=== PATIENT | male | born 1945 | race Caucasian/White ===

== ENCOUNTER 2016-12-16 21:40 | Emergency (ER) | payer MEDICARE, OTHER ==
[2016-12-16 22:04] VITALS: BP 136/61
--- NOTE | 2016-12-16 22:29 | EDM.PDOC ---
ED HPI GENERAL MEDICAL PROBLEM - General Chief Complaint: Lower Extremity Injury/Pain Stated Complaint: Right ankle pain Time Seen by Provider: 12/16/16 22:10 Source of Information: Reports: Patient, RN Notes Reviewed History Limitations: Reports: No Limitations - History of Present Illness INITIAL COMMENTS - FREE TEXT/NARRATIVE: 71 year old male presents to the ED with pain to the right ankle. Pain is located to the medial malleolous and is worse with dorsiflexion of the foot. He rolled his ankle yesterday. No numbness or tingling. He is able to bear weight but with pain. 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 Pain Score (Numeric/FACES): 2 - Related Data Allergies Allergy/AdvReac Type Severity Reaction Status Date / Time amlodipine AdvReac Muscle Verified 12/16/16 22:04 Aches lisinopril AdvReac Muscle Verified 12/16/16 22:04 Aches olmesartan [From Benicar] AdvReac Muscle Verified 12/16/16 22:04 Aches Zkigfrj-[id number]-Dkh Reductase AdvReac Muscle Verified 12/16/16 22:04 Inhibitor Aches Home Meds: Home Meds Cholecalciferol (Vitamin D3) [Vitamin D3] 5,000 unit PO DAILY 04/20/16 [History] Hydrochlorothiazide 25 mg PO DAILY 04/20/16 [History] Latanoprost [Xalatan 0.005% Ophth Soln] 1 drop EYERT BEDTIME 04/20/16 [History] Levothyroxine 175 mcg PO DAILY 04/20/16 [History] Losartan Potassium [Cozaar] 100 mg PO DAILY #30 tablet 05/08/16 [Rx] Iron 18 mg PO DAILY 12/16/16 [History] Past Medical History HEENT History: Reports: Impaired Vision Other HEENT History: wears glasses, impacted cerumen Cardiovascular History: Reports: High Cholesterol, Hypertension Respiratory History: Reports: Sleep Apnea, Other (See Below) Other Respiratory History: cough, wears CPAP Gastrointestinal History: Reports: Other (See Below) Other Gastrointestinal History: meckel's diverticulum Musculoskeletal History: Reports: Gout Endocrine/Metabolic History: Reports: Hypothyroidism, Obesity/BMI 30+ Hematologic History: Reports: Other (See Below) Other Hematologic History: thrombocytopenia Dermatologic History: Reports: Other (See Below) Other Dermatologic History: skin lesion to face - Infectious Disease History Infectious Disease History: Reports: Chicken Pox, Measles - Past Surgical History GI Surgical History: Reports: Colonoscopy, ERCP, Other (See Below) Other GI Surgeries/Procedures: 2013, laparoscopic abdominal surgery 2015 Musculoskeletal Surgical History: Reports: Other (See Below) Other Musculoskeletal Surgeries/Procedures:: right hip replacement 02015 Social & Family History - Family History Family Medical History: Noncontributory - Tobacco Use Smoking Status *Q: Never Smoker Second Hand Smoke Exposure: No - Caffeine Use Caffeine Use: Reports: Coffee - Alcohol Use Days Per Week of Alcohol Use: 1 (1 per month) Number of Drinks Per Day: 0 Total Drinks Per Week: 0 - Recreational Drug Use Recreational Drug Use: No Review of Systems - Review of Systems Review Of Systems: See Below Musculoskeletal: Reports: Joint Pain Skin: Reports: No Symptoms Neurological: Reports: No Symptoms. Denies: Numbness, Tingling, Weakness ED EXAM, GENERAL - Physical Exam Exam: See Below Exam Limited By: No Limitations General Appearance: Alert, WD/WN, No Apparent Distress Extremities: Other (tenderness over medial malleolous. Swelling noted to ankle. No bruising. neurovascular intact) Neurological: Alert, Oriented, Normal Cognition, No Motor/Sensory Deficits Course - Vital Signs Last Recorded V/S: Last Vital Signs Temp 98.4 F 12/16/16 22:00 Pulse 81 12/16/16 22:00 Resp 18 12/16/16 22:00 BP 136/61 12/16/16 22:00 Pulse Ox 97 12/16/16 22:00 - Orders/Labs/Meds Orders: Active Orders 24 hr Category Date Time Status Ankle Min 3V Rt [CR] Stat Exams 12/16/16 22:13 Ordered - Re-Assessments/Exams Free Text/Narrative Re-Assessment/Exam: Right ankle x-ray is negative for fracture. Will place in ankle brace and discharge home. Instructed to follow-up with Dr. Mart in 7-10 days if not improved. Departure - Departure Time of Disposition: 22:58 Disposition: Home, Self-Care 01 Condition: Good Clinical Impression: Ankle sprain Qualifiers: Encounter type: initial encounter Involved ligament of ankle: unspecified ligament Laterality: right Qualified Code(s): S93.401A - Sprain of unspecified ligament of right ankle, initial encounter - Discharge Information Forms: ED Department Discharge Additional Instructions: Rest, ice and elevate Tylenol or naproxyn as needed for pain Follow-up with Dr. Mart in 7-10 days if not improved Wear ankle brace as tolerated Weight bearing as tolerated - My Orders Last 24 Hours: My Active Orders 12/16/16 22:13 Ankle Min 3V Rt [CR] Stat - Assessment/Plan Last 24 Hours: My Active Orders 12/16/16 22:13 Ankle Min 3V Rt [CR] Stat
--- NOTE | 2016-12-17 14:37 | CR ---
Right ankle: Four views of the right ankle were obtained. Comparison: No previous ankle study. Minimal plantar spur is seen. Calcifications are seen off the medial and lateral ankle compatible with old injury. Mild vascular calcification is present. No acute fracture or dislocation is seen. Impression: 1. Incidental findings as noted above. Nothing acute is identified. Diagnostic code #2
== END 2016-12-16 23:16 | disposition home or self-care (01) ==
LOC: JD.ED 21:40
DX: S93.401A Sprain of unspecified ligament of right ankle, initial encounter (principal); E78.00 Pure hypercholesterolemia, unspecified; I10 Essential (primary) hypertension; E03.9 Hypothyroidism, unspecified; E66.9 Obesity, unspecified; Z88.8 Allergy status to other drugs, medicaments and biological substances; Z79.899 Other long term (current) drug therapy; Z68.32 Body mass index [BMI] 32.0-32.9, adult; Z96.641 Presence of right artificial hip joint; X58.XXXA Exposure to other specified factors, initial encounter
CPT/HCPCS: 73610-26-RT; 73610-RT; 99282; 99283

== ENCOUNTER 2017-06-24 16:28 | Emergency (ER) | payer MEDICARE, OTHER ==
[2017-06-24 16:41] VITALS: BP 180/68
[2017-06-24] MEDS ORDERED: Sodium Chloride 0.9% 10 ML Syringe FLUSH PRN (16:49)
--- NOTE | 2017-06-24 17:23 | EDM.PDOC ---
ED HPI GENERAL MEDICAL PROBLEM - General Chief Complaint: Fever Stated Complaint: FEVER, COLD/FLU LIKE SYMPTOMS Time Seen by Provider: 06/24/17 16:40 Source of Information: Reports: Patient, RN Notes Reviewed - History of Present Illness INITIAL COMMENTS - FREE TEXT/NARRATIVE: 72-year-old male that started with cough congestion, fever chills last evening. That continues today. His frequent Cough is occasionally productive of mostly noncolored phlegm. He continues to have a lot of nasal and sinus congestion today. Feels weak, tired and achy. [place] headache nausea or vomiting. He does have mild scratchy sore throat. He did get a flu shot this past fall. He has had pneumonia in the past. Headache Pain Score (Numeric/FACES): 2 - Related Data Allergies Allergy/AdvReac Type Severity Reaction Status Date / Time amlodipine AdvReac Muscle Verified 06/24/17 16:41 Aches lisinopril AdvReac Muscle Verified 06/24/17 16:41 Aches olmesartan [From Benicar] AdvReac Muscle Verified 06/24/17 16:41 Aches Nbzhhza-Gzj-Swb Reductase AdvReac Muscle Verified 06/24/17 16:41 Inhibitor Aches Home Meds: Home Meds Allopurinol [Zyloprim] 300 mg PO DAILY 06/24/17 [History] Ascorbate Calcium [Vitamin C] 500 mg PO DAILY 06/24/17 [History] Cholecalciferol (Vitamin D3) [Vitamin D] 5,000 unit PO DAILY 06/24/17 [History] Hydrochlorothiazide 12.5 mg PO DAILY 06/24/17 [History] Latanoprost [Latanoprost] 1 drop EYEBOTH DAILY 06/24/17 [History] Levofloxacin [Levaquin] 500 mg PO Q24H #7 tablet 06/24/17 [Rx] Levothyroxine 175 mcg PO ACBRK 06/24/17 [History] Losartan Potassium 50 mg PO DAILY 06/24/17 [History] Past Medical History HEENT History: Reports: Impaired Vision Other HEENT History: wears glasses, impacted cerumen Cardiovascular History: Reports: High Cholesterol, Hypertension Respiratory History: Reports: Sleep Apnea, Other (See Below) Other Respiratory History: cough, wears CPAP Gastrointestinal History: Reports: Other (See Below) Other Gastrointestinal History: meckel's diverticulum Musculoskeletal History: Reports: Gout Endocrine/Metabolic History: Reports: Hypothyroidism, Obesity/BMI 30+ Hematologic History: Reports: Other (See Below) Other Hematologic History: thrombocytopenia Dermatologic History: Reports: Other (See Below) Other Dermatologic History: skin lesion to face - Infectious Disease History Infectious Disease History: Reports: Chicken Pox - Past Surgical History GI Surgical History: Reports: Colonoscopy, ERCP, Other (See Below) Other GI Surgeries/Procedures: 2012, laparoscopic abdominal surgery 2015 Musculoskeletal Surgical History: Reports: Other (See Below) Other Musculoskeletal Surgeries/Procedures:: right hip replacement 02015 Social & Family History - Family History Family Medical History: Noncontributory - Tobacco Use Smoking Status *Q: Never Smoker Second Hand Smoke Exposure: No - Caffeine Use Caffeine Use: Reports: Coffee - Alcohol Use Days Per Week of Alcohol Use: 1 (1 per month) Number of Drinks Per Day: 0 Total Drinks Per Week: 0 - Recreational Drug Use Recreational Drug Use: No ED ROS GENERAL - Review of Systems Review Of Systems: See Below Constitutional: Reports: Fever, Chills HEENT: Reports: Rhinitis, Sinus Problem (Fairly sick difficult nasal and sinus congestion), Throat Pain (Mild sore throat) Respiratory: Reports: Shortness of Breath (With exertion), Wheezing Cardiovascular: Denies: Chest Pain Endocrine: Reports: Fatigue GI/Abdominal: Denies: Abdominal Pain, Diarrhea, Nausea, Vomiting Musculoskeletal: Reports: Other Skin: Reports: No Symptoms (Generalized achiness) Neurological: Reports: Dizziness, Weakness (Generalized). Denies: Headache ( Mild), Numbness, Tingling, Trouble Speaking ED EXAM, GENERAL - Physical Exam Exam: See Below General Appearance: Alert, Mild Distress Eye Exam: Bilateral Eye: PERRL Nose: Nasal Drainage, Clear Rhinorrhea Throat/Mouth: Normal Inspection, Normal Oropharynx Head: Atraumatic. No: Facial Swelling Neck: Supple, Full Range of Motion. No: Lymphadenopathy (L), Lymphadenopathy (R ) Respiratory/Chest: No Respiratory Distress, Wheezing. No: Rhonchi Cardiovascular: Tachycardia GI/Abdominal: Soft Back Exam: No: CVA Tenderness (L), CVA Tenderness (R) Extremities: Normal Inspection, Normal Range of Motion. No: Pedal Edema, Leg Pain Neurological: Alert, Oriented, No Motor/Sensory Deficits Skin Exam: Warm, Dry, Normal Color, No Rash Course - Vital Signs Last Recorded V/S: Last Vital Signs Temp 104.2 F H 06/24/17 17:41 Pulse 126 H 06/24/17 16:37 Resp 20 06/24/17 16:37 BP 180/68 H 06/24/17 16:37 Pulse Ox 95 06/24/17 17:48 - Orders/Labs/Meds Orders: Active Orders 24 hr Category Date Time Status Peripheral IV Care [RC] . DIRECTED Care 06/24/17 16:49 Active RT Aerosol Therapy [RC] ASDIRECTED Care 06/24/17 17:37 Active CXR [Chest 2V] [CR] Stat Exams 06/24/17 16:48 Taken CULTURE BLOOD [BC] Stat Lab 06/24/17 17:10 Received Sodium Chloride 0.9% [Saline Flush] Med 06/24/17 16:49 Active 10 ml FLUSH ASDIRECTED PRN Peripheral IV Insertion Adult [OM.PC] Stat Oth 06/24/17 16:49 Ordered Medication Orders Sodium Chloride (Saline Flush) 10 ml FLUSH ASDIRECTED PRN PRN Reason: Keep Vein Open Last Admin: 06/24/17 17:17 Dose: 10 ml Labs: Laboratory Tests 06/24/17 06/24/17 06/24/17 Range/Units 17:10 17:10 17:10 WBC 11.17 H (4.23-9.07) K/mm3 RBC 4.52 L (4.63-6.08) M/mm3 Hgb 13.3 L (13.7-17.5) gm/L Hct 40.7 (40.1-51.0) % MCV 90.0 (79.0-92.2) fl MCH 29.4 (25.7-32.2) pg MCHC 32.7 (32.2-35.5) g/dl RDW Std Deviation 49.4 H (35.1-43.9) fL Plt Count 156 L (163-337) K/mm3 MPV 8.8 L (9.4-12.3) fl Neut % (Auto) 76.4 H (34.0-67.9) % Lymph % (Auto) 12.4 L (21.8-53.1) % [place] % (Auto) 9.9 (5.3-12.2) % Eos % (Auto) 0.6 L (0.8-7.0) Baso % (Auto) 0.4 (0.1-1.2) % Neut # (Auto) 8.53 H (1.78-5.38) K/mm3 Lymph # (Auto) 1.38 (1.32-3.57) K/mm3 [place] # (Auto) 1.11 H (0.30-0.82) K/mm3 Eos # (Auto) 0.07 (0.04-0.54) K/mm3 Baso # (Auto) 0.05 (0.01-0.08) K/mm3 Sodium 136 (136-145) mEq/L Potassium 4.1 (3.5-5.1) mEq/L Chloride 101 (98-107) mEq/L Carbon Dioxide 24 (21-32) mEq/L Anion Gap 15.1 H (5-15) BUN 21 H (7-18) mg/dL Creatinine 1.4 H (0.7-1.3) mg/dL Est Cr Clr Drug Dosing 49.10 mL/min Estimated GFR (MDRD) 50 (>60) mL/min BUN/Creatinine Ratio 15.0 (14-18) Glucose 123 H (80-115) mg/dL Lactic Acid (0.4-2.0) mmol/L Calcium 8.6 (8.5-10.1) mg/dL Total Bilirubin 0.6 (0.2-1.0) mg/dL AST 19 (15-37) U/L ALT 26 (16-63) U/L Alkaline Phosphatase 111 (46-116) U/L C-Reactive Protein 11.8 H* (<1.0) mg/dL Total Protein 7.4 (6.4-8.2) g/dl Albumin 3.4 (3.4-5.0) g/dl Globulin 4.0 gm/dL Albumin/Globulin Ratio 0.9 L (1-2) 06/24/17 Range/Units 17:10 WBC (4.23-9.07) K/mm3 RBC (4.63-6.08) M/mm3 Hgb (13.7-17.5) gm/L Hct (40.1-51.0) % MCV (79.0-92.2) fl MCH (25.7-32.2) pg MCHC (32.2-35.5) g/dl RDW Std Deviation (35.1-43.9) fL Plt Count (163-337) K/mm3 MPV (9.4-12.3) fl Neut % (Auto) (34.0-67.9) % Lymph % (Auto) (21.8-53.1) % [place] % (Auto) (5.3-12.2) % Eos % (Auto) (0.8-7.0) Baso % (Auto) (0.1-1.2) % Neut # (Auto) (1.78-5.38) K/mm3 Lymph # (Auto) (1.32-3.57) K/mm3 [place] # (Auto) (0.30-0.82) K/mm3 Eos # (Auto) (0.04-0.54) K/mm3 Baso # (Auto) (0.01-0.08) K/mm3 Sodium (136-145) mEq/L Potassium (3.5-5.1) mEq/L Chloride (98-107) mEq/L Carbon Dioxide (21-32) mEq/L Anion Gap (5-15) BUN (7-18) mg/dL Creatinine (0.7-1.3) mg/dL Est Cr Clr Drug Dosing mL/min Estimated GFR (MDRD) (>60) mL/min BUN/Creatinine Ratio (14-18) Glucose (80-115) mg/dL Lactic Acid 1.5 (0.4-2.0) mmol/L Calcium (8.5-10.1) mg/dL Total Bilirubin (0.2-1.0) mg/dL AST (15-37) U/L ALT (16-63) U/L Alkaline Phosphatase (46-116) U/L C-Reactive Protein (<1.0) mg/dL Total Protein (6.4-8.2) g/dl Albumin (3.4-5.0) g/dl Globulin gm/dL Albumin/Globulin Ratio (1-2) Meds: Medications Generic Name Dose Route Start Last Admin Trade Name Freq PRN Reason Stop Dose Admin Sodium Chloride 10 ml 06/24/17 16:49 06/24/17 17:17 Saline Flush FLUSH 10 ml ASDIRECTED PRN Administration Keep Vein Open Discontinued Medications Generic Name Dose Route Start Last Admin Trade Name Rivas PRN Reason Stop Dose Admin Acetaminophen 975 mg 06/24/17 17:35 06/24/17 17:41 Tylenol PO 06/24/17 17:36 975 mg NOW ONE Administration Albuterol/Ipratropium 3 ml 06/24/17 17:37 06/24/17 17:47 Duoneb 3.0-0.5 Mg/3 Ml NEB 06/24/17 17:38 3 ml ONETIME ONE Administration Levofloxacin 500 mg 06/24/17 18:38 06/24/17 18:43 Levaquin PO 06/24/17 18:39 500 mg ONETIME ONE Administration - Re-Assessments/Exams Free Text/Narrative Re-Assessment/Exam: 06/24/17 18:39 White blood count is come back mildly elevated C-reactive protein is around 11. He does have some slightly increased parahilar haziness right posterior lower lobe, possible early infiltrate of pneumonia but certainly not definite. His symptoms are compatible with that of an influenza type illness but his influenza screen was negative. The C-reactive protein that high and symptoms of being moderately sick I do feel I need to have him start an antibiotic. We are going to give 500 mg Levaquin oral now and continue that for the next week was wheezing some initially. We have done a DuoNeb and also have given Tylenol and he does feel somewhat better after all of that. Discharge instructions as documented. Departure - Departure Time of Disposition: 18:41 Disposition: Home, Self-Care 01 Clinical Impression: Viral upper respiratory infection Pneumonia Qualifiers: Pneumonia type: due to unspecified organism Laterality: right Lung location: lower lobe of lung Qualified Code(s): J18.1 - Lobar pneumonia, unspecified organism - Discharge Information Prescriptions: Levofloxacin [Levaquin] 500 mg PO Q24H #7 tablet Referrals: Jarrod Retana MD [Primary Care Provider] - Forms: ED Department Discharge Additional Instructions: Rest, drink plenty of water to maintain hydration, continue Tylenol around 3 times daily for fever and generalized discomfort, vaporizer or steam as needed, albuterol inhaler 2 puffs every 4-6 hours as needed for severe cough or wheezing , you should gradually start feeling better over the next 2-3 days, follow-up clinic if not better within 3-4 days as expected, return to ED as needed. - My Orders Last 24 Hours: My Active Orders 06/24/17 16:48 CXR [Chest 2V] [CR] Stat 06/24/17 16:49 Peripheral IV Care [RC] . DIRECTED Sodium Chloride 0.9% [Saline Flush] 10 ml FLUSH ASDIRECTED PRN Peripheral IV Insertion Adult [OM.PC] Stat 06/24/17 17:10 CULTURE BLOOD [BC] Stat 06/24/17 17:37 RT Aerosol Therapy [RC] ASDIRECTED - Assessment/Plan Last 24 Hours: My Active Orders 06/24/17 16:48 CXR [Chest 2V] [CR] Stat 06/24/17 16:49 Peripheral IV Care [RC] . DIRECTED Sodium Chloride 0.9% [Saline Flush] 10 ml FLUSH ASDIRECTED PRN Peripheral IV Insertion Adult [OM.PC] Stat 06/24/17 17:10 CULTURE BLOOD [BC] Stat 06/24/17 17:37 RT Aerosol Therapy [RC] ASDIRECTED
[2017-06-24] MEDS ORDERED: Acetaminophen 325 MG Tab PO ONE (17:35)
[2017-06-24] MEDS ORDERED: Albuterol/Ipratropium 3.0-0.5 MG/3 ML Neb Soln NEB ONE (17:37)
[2017-06-24] MEDS ORDERED: Levofloxacin 250 MG Tab PO ONE (18:38)
--- NOTE | 2017-06-25 07:59 | CR ---
Chest: Two views of the chest were obtained. Comparison: Prior chest x-ray of 04/27/16. Heart size and mediastinum are normal. Minimal left basilar atelectasis and right middle lobe atelectasis is noted. Lungs otherwise are clear. Degenerative endplate spurring is noted within the spine. Impression: 1. Mild areas of atelectasis. 2. Nothing acute is otherwise seen on two-view chest x-ray. Diagnostic code #2
== END 2017-06-24 19:00 | disposition home or self-care (01) ==
LOC: JD.ED 16:28
DX: J18.9 Pneumonia, unspecified organism (principal); J06.9 Acute upper respiratory infection, unspecified; E78.00 Pure hypercholesterolemia, unspecified; I10 Essential (primary) hypertension; Z88.8 Allergy status to other drugs, medicaments and biological substances; Z79.899 Other long term (current) drug therapy
CPT/HCPCS: 36415; 71020; 80053; 83605; 85025; 86140; 87040; 87804; 94640; 99284; A9270; J7050

== ENCOUNTER 2017-09-26 21:33 | Emergency (ER) | payer MEDICARE, OTHER ==
[2017-09-26 21:41] VITALS: BP 119/95
[2017-09-26] MEDS ORDERED: Sodium Chloride 0.9% 500 ML IV ONE (21:53)
[2017-09-26] MEDS ORDERED: Sodium Chloride 0.9% 10 ML Syringe FLUSH PRN (21:54)
[2017-09-26] MEDS ORDERED: Diltiazem 25 MG/5 ML SDV IVPUSH ONE (21:54)
--- NOTE | 2017-09-26 22:58 | EDM.PDOC ---
ED HPI GENERAL MEDICAL PROBLEM - General Chief Complaint: Cardiovascular Problem Stated Complaint: HEART IS RACING Time Seen by Provider: 09/26/17 21:44 Source of Information: Reports: Patient, RN Notes Reviewed - History of Present Illness INITIAL COMMENTS - FREE TEXT/NARRATIVE: 72-year-old male comes in with heart palpitations. He had onset of these symptoms about an hour or 2 ago. The tooth just discharged from the hospital 3 or 4 days ago. Details of that admission are not totally clear at this time and I believe he had been having some chest discomfort and then also he and his states he did have some episodes of "rapid heart rate" while here in the hospital. He did go home on metoprolol 25 mg twice a day. He has taken both of those medications today. He currently has no chest discomfort, does not feel short of breath and has had no unusual weakness dizziness nausea or vomiting. - Related Data Allergies Allergy/AdvReac Type Severity Reaction Status Date / Time amlodipine AdvReac Muscle Verified 09/26/17 21:36 Aches lisinopril AdvReac Muscle Verified 09/26/17 21:36 Aches olmesartan [From Benicar] AdvReac Muscle Verified 09/26/17 21:36 Aches [id number]-[id number] Reductase AdvReac Muscle Verified 09/26/17 21:36 Inhibitor Aches Home Meds: Home Meds Allopurinol [Zyloprim] 300 mg PO DAILY 06/24/17 [History] Ascorbate Calcium [Vitamin C] 500 mg PO DAILY 06/24/17 [History] Cholecalciferol (Vitamin D3) [Vitamin D] 5,000 unit PO DAILY 06/24/17 [History] Hydrochlorothiazide 12.5 mg PO DAILY 06/24/17 [History] Latanoprost 1 drop EYERT DAILY 06/24/17 [History] Levothyroxine 175 mcg PO ACBRK 06/24/17 [History] Losartan Potassium 50 mg PO DAILY 06/24/17 [History] Ferrous Sulfate [Slow Fe] 140 mg PO DAILY 09/19/17 [History] Metoprolol Tartrate [Lopressor] 25 mg PO Q12HR #40 tablet 09/23/17 [Rx] Saccharomyces Boulardii [Florastor] 500 mg PO DAILY #20 cap 09/23/17 [Rx] Past Medical History HEENT History: Reports: Impaired Vision Other HEENT History: wears glasses, impacted cerumen Cardiovascular History: Reports: Arrhythmia, High Cholesterol, Hypertension, Other (See Below) Other Cardiovascular History: tachycardia Respiratory History: Reports: Sleep Apnea, Other (See Below) Other Respiratory History: cough, wears CPAP Gastrointestinal History: Reports: Other (See Below) Other Gastrointestinal History: meckel's diverticulum Musculoskeletal History: Reports: Gout Endocrine/Metabolic History: Reports: Hypothyroidism, Obesity/BMI 30+ Hematologic History: Reports: Other (See Below) Other Hematologic History: thrombocytopenia Dermatologic History: Reports: Other (See Below) Other Dermatologic History: skin lesion to face - Infectious Disease History Infectious Disease History: Reports: Chicken Pox - Past Surgical History GI Surgical History: Reports: Colonoscopy, ERCP, Other (See Below) Other GI Surgeries/Procedures: 2012, laparoscopic abdominal surgery 2015 Musculoskeletal Surgical History: Reports: Other (See Below) Other Musculoskeletal Surgeries/Procedures:: right hip replacement 2015 Social & Family History - Family History Family Medical History: Noncontributory - Tobacco Use Smoking Status *Q: Never Smoker Second Hand Smoke Exposure: No - Caffeine Use Caffeine Use: Reports: Coffee - Alcohol Use Days Per Week of Alcohol Use: 1 (1 per month) Number of Drinks Per Day: 0 Total Drinks Per Week: 0 - Recreational Drug Use Recreational Drug Use: No ED ROS GENERAL - Review of Systems Review Of Systems: See Below Constitutional: Denies: Fever, Chills, Diaphoresis HEENT: Reports: No Symptoms Respiratory: Denies: Shortness of Breath, Wheezing, Pleuritic Chest Pain Cardiovascular: Reports: Palpitations. Denies: Chest Pain, Lightheadedness, Syncope GI/Abdominal: Denies: Abdominal Pain, Nausea, Vomiting Musculoskeletal: Denies: Neck Pain, Shoulder Pain, Arm Pain, Back Pain Skin: Reports: No Symptoms Neurological: Reports: No Symptoms ED EXAM, GENERAL - Physical Exam Exam: See Below General Appearance: Alert, No Apparent Distress Eye Exam: Bilateral Eye: PERRL Nose: Normal Inspection Throat/Mouth: Normal Inspection, Normal Oropharynx Head: Atraumatic. No: Facial Swelling Neck: Supple, Full Range of Motion Respiratory/Chest: No Respiratory Distress, Lungs Clear, Normal Breath Sounds Cardiovascular: Tachycardia GI/Abdominal: Soft, Non-Tender Back Exam: No: CVA Tenderness (L), CVA Tenderness (R) Extremities: Normal Inspection, Normal Range of Motion. No: Pedal Edema, Leg Pain Skin Exam: Warm, Dry, Normal Color Course - Vital Signs Last Recorded V/S: Last Vital Signs Temp 96.1 F 09/26/17 21:36 Pulse 165 H 09/26/17 21:36 Resp 22 H 09/26/17 21:36 BP 119/95 H 09/26/17 21:36 Pulse Ox 97 09/26/17 21:36 - Orders/Labs/Meds Orders: Active Orders 24 hr Category Date Time Status EKG 12 Lead [EKG Documentation Completion] [RC] STAT Care 09/26/17 22:30 Active EKG Documentation Completion [RC] ASDIRECTED Care 09/26/17 22:24 Active EKG Documentation Completion [RC] ASDIRECTED Care 09/26/17 22:30 Active Peripheral IV Care [RC] . DIRECTED Care 09/26/17 21:54 Active Chest 1V Frontal [CR] Stat Exams 09/26/17 23:57 Taken Peripheral IV Insertion Adult [OM.PC] Stat Oth 09/26/17 21:53 Ordered EKG 12 Lead [EK] Stat Ther 09/26/17 22:24 Ordered EKG 12 Lead [EK] Stat Ther 09/26/17 22:30 Ordered Labs: Laboratory Tests 09/26/17 09/26/17 09/26/17 Range/Units 21:48 21:48 21:48 WBC 13.19 H (4.23-9.07) K/mm3 RBC 4.66 (4.63-6.08) M/mm3 Hgb 13.7 (13.7-17.5) gm/L Hct 42.1 (40.1-51.0) % MCV 90.3 (79.0-92.2) fl MCH 29.4 (25.7-32.2) pg MCHC 32.5 (32.2-35.5) g/dl RDW Std Deviation 47.3 H (35.1-43.9) fL Plt Count 349 H (163-337) K/mm3 MPV 8.8 L (9.4-12.3) fl Neut % (Auto) 61.4 (34.0-67.9) % Lymph % (Auto) 23.7 (21.8-53.1) % [place] % (Auto) 10.6 (5.3-12.2) % Eos % (Auto) 2.7 (0.8-7.0) Baso % (Auto) 0.4 (0.1-1.2) % Neut # (Auto) 8.10 H (1.78-5.38) K/mm3 Lymph # (Auto) 3.12 (1.32-3.57) K/mm3 [place] # (Auto) 1.40 H (0.30-0.82) K/mm3 Eos # (Auto) 0.36 (0.04-0.54) K/mm3 Baso # (Auto) 0.05 (0.01-0.08) K/mm3 Manual Slide Review Normal smear Sodium 135 L (136-145) mEq/L Potassium 3.7 (3.5-5.1) mEq/L Chloride 100 (98-107) mEq/L Carbon Dioxide 25 (21-32) mEq/L Anion Gap 13.7 (5-15) BUN 26 H (7-18) mg/dL Creatinine 1.6 H (0.7-1.3) mg/dL Est Cr Clr Drug Dosing 41.56 mL/min Estimated GFR (MDRD) 43 (>60) mL/min BUN/Creatinine Ratio 16.3 (14-18) Glucose 115 (80-115) mg/dL Calcium 9.2 (8.5-10.1) mg/dL Total Bilirubin 0.3 (0.2-1.0) mg/dL AST 41 H (15-37) U/L ALT 44 (16-63) U/L Alkaline Phosphatase 132 H (46-116) U/L Troponin I 0.024 (0.00-0.056) ng/mL C-Reactive Protein 16.6 H* (<1.0) mg/dL Total Protein 7.9 (6.4-8.2) g/dl Albumin 3.1 L (3.4-5.0) g/dl Globulin 4.8 gm/dL Albumin/Globulin Ratio 0.7 L (1-2) Meds: Medications Discontinued Medications Generic Name Dose Route Start Last Admin Trade Name Freq PRN Reason Stop Dose Admin Diltiazem HCl 20 mg 09/26/17 21:54 09/26/17 22:03 Diltiazem IVPUSH 09/26/17 21:55 20 mg ONETIME ONE Administration Sodium Chloride 500 mls @ 999 mls/hr 09/26/17 21:53 09/26/17 22:02 Normal Saline IV 09/26/17 22:23 999 mls/hr .BOLUS ONE Administration Sodium Chloride 10 ml 09/26/17 21:54 09/26/17 22:02 Saline Flush FLUSH 10 ml ASDIRECTED PRN Administration Keep Vein Open - Re-Assessments/Exams Free Text/Narrative Re-Assessment/Exam: 09/26/17 23:11 EKG showed what looked like atrial flutter with 2 to one response on arrival with slight variability and occasional 3-1 conduction. Therefore patient was given 20 mg diltiazem IV as initial medication. With that his rate slowed and then he did convert after about 20-30 minutes. He remains in sinus rhythm rate in the 80s to around 90 at this time. 09/27/17 00:17. Continues to run sinus rhythm mid to upper 80s to low 90s, continues to have no chest discomfort or other unusual symptoms. Labs are as documented. Chest x-ray looks good. He was to going to the clinic tomorrow morning for further labs and then follow-up appointment with Dr. Geronimo early next week. As we have done all of the labs other than C-reactive protein the labs from this evening should work. I will add a C-reactive protein at this time. I am also going to increase his metoprolol from 25 twice a day to 25 3 times a day. Departure - Departure Time of Disposition: 00:19 Disposition: Home, Self-Care 01 Clinical Impression: Supraventricular tachycardia Atrial flutter Qualifiers: Atrial flutter type: typical Qualified Code(s): I48.3 - Typical atrial flutter Instructions: Atrial Flutter Referrals: Jarrod Retana MD [Primary Care Provider] - Forms: ED Department Discharge Additional Instructions: Increase metoprolol to 25 mg 3 times daily for nail. Lab work checked here in the ED this evening will be available for Dr. Geronimo to review as well as information that will be documented on your chart for this evening. See Dr. Geronimo next Saturday as planned, return to ED as needed if symptoms recurring or worsening in any way. - My Orders Last 24 Hours: My Active Orders 09/26/17 21:53 Peripheral IV Insertion Adult [OM.PC] Stat 09/26/17 21:54 Peripheral IV Care [RC] . DIRECTED 09/26/17 22:24 EKG Documentation Completion [RC] ASDIRECTED EKG 12 Lead [EK] Stat 09/26/17 22:30 EKG 12 Lead [EKG Documentation Completion] [RC] STAT EKG Documentation Completion [RC] ASDIRECTED EKG 12 Lead [EK] Stat 09/26/17 23:57 Chest 1V Frontal [CR] Stat - Assessment/Plan Last 24 Hours: My Active Orders 09/26/17 21:53 Peripheral IV Insertion Adult [OM.PC] Stat 09/26/17 21:54 Peripheral IV Care [RC] . DIRECTED 09/26/17 22:24 EKG Documentation Completion [RC] ASDIRECTED EKG 12 Lead [EK] Stat 09/26/17 22:30 EKG 12 Lead [EKG Documentation Completion] [RC] STAT EKG Documentation Completion [RC] ASDIRECTED EKG 12 Lead [EK] Stat 09/26/17 23:57 Chest 1V Frontal [CR] Stat
--- NOTE | 2017-09-27 07:57 | CR ---
Chest: Portable view of the chest was obtained. Comparison: Prior chest x-ray 09/22/17. Increased density is noted within the left midlung. Left retrocardiac region is not well seen with silhouetting of the hemidiaphragm possibly due to additional parenchymal densities. Lungs otherwise are clear. Heart size at the upper limits of normal. Upper mediastinum is within normal limits. Degenerative spurring is noted within the spine. Impression: 1. Slight parenchymal density within the left mid and lower lung. If patient has no symptoms of infection this likely represents atelectasis. 2. Heart size at the upper limits of normal. 3. Nothing acute is otherwise seen. Diagnostic code #3
== END 2017-09-27 00:28 | disposition home or self-care (01) ==
LOC: JD.ED 21:33
DX: I47.1 Supraventricular tachycardia (principal); I48.3 Typical atrial flutter; I10 Essential (primary) hypertension; E03.9 Hypothyroidism, unspecified; E66.9 Obesity, unspecified; E78.00 Pure hypercholesterolemia, unspecified; Z88.8 Allergy status to other drugs, medicaments and biological substances; Z79.899 Other long term (current) drug therapy
CPT/HCPCS: 36415; 71045; 80053; 84484; 85025; 86140; 93005; 96361; 96374; 99285; J3490; J7040; J7050; 93010; 99284-25

== ENCOUNTER 2017-09-30 14:32 | Emergency (ER) | payer MEDICARE, OTHER ==
[2017-09-30] MEDS ORDERED: Sodium Chloride 0.9% 10 ML Syringe FLUSH PRN (14:52)
[2017-09-30] MEDS ORDERED: Diltiazem 25 MG/5 ML SDV IVPUSH ONE (14:57)
[2017-09-30] MEDS ORDERED: Sodium Chloride 0.9% 1,000 ML IV SCH (15:00)
[2017-09-30] MEDS ORDERED: Diltiazem 125 MG in Sodium Chloride 0.9% 100 ML IV SCH (16:00)
[2017-09-30] MEDS ORDERED: Metoprolol Tartrate 5 MG/5 ML SDV IVPUSH ONE (17:56)
--- NOTE | 2017-09-30 18:22 | EDM.PDOC ---
ED HPI GENERAL MEDICAL PROBLEM - General Chief Complaint: Cardiovascular Problem Stated Complaint: RACING HEART RATE Time Seen by Provider: 09/30/17 14:49 Source of Information: Reports: Patient History Limitations: Reports: No Limitations - History of Present Illness INITIAL COMMENTS - FREE TEXT/NARRATIVE: The patient presents with palpitations. He was admitted here in the for A- fib. He was admitted and he had a complete work up. He converted in the hospital. He converted in the hospital. He was discharged and came back 3 days ago and he was in it again. He was given a cardizem bolus and he converted. He is not sure when this last episode started. He has no fever, chills, cough, chest pain, shortness of breath, abdominal pain, nausea or vomiting. Onset: Unknown/Unsure Severity: Moderate Improves with: Reports: None Worsens with: Reports: None Associated Symptoms: Reports: No Other Symptoms Left Upper Chest Pain Score (Numeric/FACES): 2 - Related Data Allergies Allergy/AdvReac Type Severity Reaction Status Date / Time amlodipine AdvReac Muscle Verified 09/30/17 14:45 Aches lisinopril AdvReac Muscle Verified 09/30/17 14:45 Aches olmesartan [From Benicar] AdvReac Muscle Verified 09/30/17 14:45 Aches Ybnqkwu-Lpt-Kuq Reductase AdvReac Muscle Verified 09/30/17 14:45 Inhibitor Aches Home Meds: Home Meds Allopurinol [Zyloprim] 300 mg PO DAILY 06/24/17 [History] Ascorbate Calcium [Vitamin C] 500 mg PO DAILY 06/24/17 [History] Cholecalciferol (Vitamin D3) [Vitamin D] 5,000 unit PO DAILY 06/24/17 [History] Hydrochlorothiazide 12.5 mg PO DAILY 06/24/17 [History] Latanoprost 1 drop EYERT DAILY 06/24/17 [History] Levothyroxine 175 mcg PO ACBRK 06/24/17 [History] Losartan Potassium 50 mg PO DAILY 06/24/17 [History] Ferrous Sulfate [Slow Fe] 140 mg PO DAILY 09/19/17 [History] Metoprolol Tartrate [Lopressor] 25 mg PO TID 09/30/17 [History] Past Medical History HEENT History: Reports: Impaired Vision Other HEENT History: wears glasses, impacted cerumen Cardiovascular History: Reports: Arrhythmia, High Cholesterol, Hypertension, Other (See Below) Other Cardiovascular History: tachycardia Respiratory History: Reports: Sleep Apnea, Other (See Below) Other Respiratory History: cough, wears CPAP Gastrointestinal History: Reports: Other (See Below) Other Gastrointestinal History: meckel's diverticulum Musculoskeletal History: Reports: Gout Endocrine/Metabolic History: Reports: Hypothyroidism, Obesity/BMI 30+ Hematologic History: Reports: Other (See Below) Other Hematologic History: thrombocytopenia Dermatologic History: Reports: Other (See Below) Other Dermatologic History: skin lesion to face - Infectious Disease History Infectious Disease History: Reports: Chicken Pox - Past Surgical History GI Surgical History: Reports: Colonoscopy, ERCP, Other (See Below) Other GI Surgeries/Procedures: 2012, laparoscopic abdominal surgery 2015 Musculoskeletal Surgical History: Reports: Other (See Below) Other Musculoskeletal Surgeries/Procedures:: right hip replacement 2015 Social & Family History - Family History Family Medical History: Noncontributory - Tobacco Use Smoking Status *Q: Never Smoker Second Hand Smoke Exposure: No - Caffeine Use Caffeine Use: Reports: None - Alcohol Use Days Per Week of Alcohol Use: 1 (1 per month) Number of Drinks Per Day: 0 Total Drinks Per Week: 0 - Recreational Drug Use Recreational Drug Use: No ED ROS GENERAL - Review of Systems Review Of Systems: See Below Constitutional: Reports: No Symptoms HEENT: Reports: No Symptoms Respiratory: Reports: No Symptoms Cardiovascular: Reports: Palpitations Endocrine: Reports: No Symptoms GI/Abdominal: Reports: No Symptoms : Reports: No Symptoms Musculoskeletal: Reports: No Symptoms ED EXAM, GENERAL - Physical Exam Exam: See Below Exam Limited By: No Limitations General Appearance: Alert, No Apparent Distress Ears: Normal External Exam Nose: Normal Inspection Head: Atraumatic, Normocephalic Neck: Normal Inspection Respiratory/Chest: No Respiratory Distress, Lungs Clear, Normal Breath Sounds Cardiovascular: No Edema, No Murmur, Tachycardia GI/Abdominal: Soft, Non-Tender, No Organomegaly, No Mass Back Exam: Normal Inspection Extremities: Normal Inspection Neurological: Alert, Oriented, No Motor/Sensory Deficits EKG INTERPRETATION EKG Date: 09/30/17 Time: 18:27 Rhythm: A-Fib Rate (Beats/Min): 162 [place]: Normal QRS: Normal Course - Vital Signs Last Recorded V/S: Last Vital Signs Temp 98.5 F 09/30/17 14:41 Pulse 79 09/30/17 18:15 Resp 24 H 09/30/17 17:30 BP 118/74 09/30/17 18:15 Pulse Ox 95 09/30/17 17:30 - Orders/Labs/Meds Orders: Active Orders 24 hr Category Date Time Status Cardiac Monitoring [RC] . DIRECTED Care 09/30/17 14:52 Active EKG Documentation Completion [RC] STAT Care 09/30/17 14:54 Active Peripheral IV Care [RC] . DIRECTED Care 09/30/17 14:54 Active Diltiazem 125 mg Med 09/30/17 16:00 Active Sodium Chloride 0.9% [Normal Saline] 100 ml IV TITRATE Sodium Chloride 0.9% [Normal Saline] 1,000 ml Med 09/30/17 15:00 Active IV ASDIRECTED Sodium Chloride 0.9% [Saline Flush] Med 09/30/17 14:52 Active 10 ml FLUSH ASDIRECTED PRN Peripheral IV Insertion Adult [OM.PC] Stat Oth 09/30/17 14:52 Ordered Medication Orders Sodium Chloride (Normal Saline) 1,000 mls @ 125 mls/hr IV ASDIRECTED TIFFANIE Last Admin: 09/30/17 15:09 Dose: 125 mls/hr Diltiazem HCl 125 mg/ Sodium (Chloride) 125 mls @ 10 mls/hr IV TITRATE TIFFANIE; Protocol Last Titration: 09/30/17 18:12 Dose: 5 mg/hr, 5 mls/hr Admin: 09/30/17 16:10 Dose: 10 mg/hr, 10 mls/hr Sodium Chloride (Saline Flush) 10 ml FLUSH ASDIRECTED PRN PRN Reason: Keep Vein Open Last Admin: 09/30/17 15:15 Dose: 10 ml Labs: Laboratory Tests 09/30/17 09/30/17 Range/Units 16:05 16:05 WBC 10.03 H (4.23-9.07) K/mm3 RBC 4.15 L (4.63-6.08) M/mm3 Hgb 12.3 L (13.7-17.5) gm/L Hct 38.1 L (40.1-51.0) % MCV 91.8 (79.0-92.2) fl MCH 29.6 (25.7-32.2) pg MCHC 32.3 (32.2-35.5) g/dl RDW Std Deviation 47.4 H (35.1-43.9) fL Plt Count 319 (163-337) K/mm3 MPV 8.7 L (9.4-12.3) fl Neut % (Auto) 66.9 (34.0-67.9) % Lymph % (Auto) 18.5 L (21.8-53.1) % [place] % (Auto) 10.7 (5.3-12.2) % Eos % (Auto) 2.1 (0.8-7.0) Baso % (Auto) 0.8 (0.1-1.2) % Neut # (Auto) 6.71 H (1.78-5.38) K/mm3 Lymph # (Auto) 1.86 (1.32-3.57) K/mm3 [place] # (Auto) 1.07 H (0.30-0.82) K/mm3 Eos # (Auto) 0.21 (0.04-0.54) K/mm3 Baso # (Auto) 0.08 (0.01-0.08) K/mm3 Sodium 142 (136-145) mEq/L Potassium 4.0 (3.5-5.1) mEq/L Chloride 103 (98-107) mEq/L Carbon Dioxide 27 (21-32) mEq/L Anion Gap 16.0 H (5-15) BUN 18 (7-18) mg/dL Creatinine 1.2 (0.7-1.3) mg/dL Est Cr Clr Drug Dosing 57.28 mL/min Estimated GFR (MDRD) 60 (>60) mL/min BUN/Creatinine Ratio 15.0 (14-18) Glucose 118 H (80-115) mg/dL Calcium 8.9 (8.5-10.1) mg/dL Total Bilirubin 0.3 (0.2-1.0) mg/dL AST 19 (15-37) U/L ALT 22 (16-63) U/L Alkaline Phosphatase 103 (46-116) U/L Troponin I < 0.017 (0.00-0.056) ng/mL Total Protein 7.1 (6.4-8.2) g/dl Albumin 2.9 L (3.4-5.0) g/dl Globulin 4.2 gm/dL Albumin/Globulin Ratio 0.7 L (1-2) Meds: Medications Generic Name Dose Route Start Last Admin Trade Name Freq PRN Reason Stop Dose Admin Sodium Chloride 1,000 mls @ 125 mls/hr 09/30/17 15:00 09/30/17 15:09 Normal Saline IV 125 mls/hr ASDIRECTED TIFFANIE Administration Diltiazem HCl 125 mg/ Sodium 125 mls @ 10 mls/hr 09/30/17 16:00 09/30/17 18: 12 Chloride IV 5 mg/hr TITRATE TIFFANIE 5 mls/hr Titration Protocol 10 MG/HR Sodium Chloride 10 ml 09/30/17 14:52 09/30/17 15:15 Saline Flush FLUSH 10 ml ASDIRECTED PRN Administration Keep Vein Open Discontinued Medications Generic Name Dose Route Start Last Admin Trade Name Freq PRN Reason Stop Dose Admin Diltiazem HCl 20 mg 09/30/17 14:57 09/30/17 15:09 Diltiazem IVPUSH 09/30/17 14:58 20 mg ONETIME ONE Administration Metoprolol Tartrate 5 mg 09/30/17 17:56 09/30/17 18:01 Lopressor IVPUSH 09/30/17 17:57 5 mg ONETIME ONE Administration - Re-Assessments/Exams Free Text/Narrative Re-Assessment/Exam: 09/30/17 18:28 The patient is in A-fib with RVR of 162. I ordered an IV NS, labs, EKG, cardizem bolus of 20mg IV and a drip of 10mg IV. His EKG shows the A-fib at 165. There was no acute changes. His CBC and CMP look good. His troponin is negative. His TSH was checked a few days ago and that was normal. His rate is better around 110s. My nurse recommended metoprolol 5mg. We tried it and he quickly converted. 09/30/17 18:42 I will need to increase his metoprolol to 50mg 2 times per day. He is seeing Dr Geronimo tomorrow. He will need to talk to him about the metoprolol and blood thinners. His holter monitor did show 11 episodes of A-fib totaling 38 minutes. Departure - Departure Time of Disposition: 18:50 Disposition: Home, Self-Care 01 Condition: Good Clinical Impression: Atrial fibrillation Qualifiers: Atrial fibrillation type: paroxysmal Qualified Code(s): I48.0 - Paroxysmal atrial fibrillation Referrals: Jarrod Retana MD [Primary Care Provider] - 1 Day Forms: ED Department Discharge Additional Instructions: Take your medicine as prescribed except for the metoprolol take 2 pills or 50mg 2 times per day starting tomorrow. See Dr Geronimo tomorrow. He may have a different plan but hopefully this will keep your rate controlled. Discuss blood thinners for the atrial fibrillation tomorrow with Dr Geronimo. Please return if you are worse. - My Orders Last 24 Hours: My Active Orders 09/30/17 14:52 Cardiac Monitoring [RC] . DIRECTED Sodium Chloride 0.9% [Saline Flush] 10 ml FLUSH ASDIRECTED PRN Peripheral IV Insertion Adult [OM.PC] Stat 09/30/17 14:54 EKG Documentation Completion [RC] STAT Peripheral IV Care [RC] . DIRECTED 09/30/17 15:00 Sodium Chloride 0.9% [Normal Saline] 1,000 ml IV ASDIRECTED 09/30/17 16:00 Diltiazem 125 mg Sodium Chloride 0.9% [Normal Saline] 100 ml IV TITRATE - Assessment/Plan Last 24 Hours: My Active Orders 09/30/17 14:52 Cardiac Monitoring [RC] . DIRECTED Sodium Chloride 0.9% [Saline Flush] 10 ml FLUSH ASDIRECTED PRN Peripheral IV Insertion Adult [OM.PC] Stat 09/30/17 14:54 EKG Documentation Completion [RC] STAT Peripheral IV Care [RC] . DIRECTED 09/30/17 15:00 Sodium Chloride 0.9% [Normal Saline] 1,000 ml IV ASDIRECTED 09/30/17 16:00 Diltiazem 125 mg Sodium Chloride 0.9% [Normal Saline] 100 ml IV TITRATE
[2017-09-30 18:51] VITALS: BP 114/70
== END 2017-09-30 19:00 | disposition home or self-care (01) ==
LOC: JD.ED 14:32
DX: I48.0 Paroxysmal atrial fibrillation (principal); E78.00 Pure hypercholesterolemia, unspecified; I10 Essential (primary) hypertension; G47.30 Sleep apnea, unspecified; Z99.89 Dependence on other enabling machines and devices; E03.9 Hypothyroidism, unspecified; E66.9 Obesity, unspecified; Z79.899 Other long term (current) drug therapy; Z88.8 Allergy status to other drugs, medicaments and biological substances; Z68.33 Body mass index [BMI] 33.0-33.9, adult
CPT/HCPCS: 36415; 80053; 84484; 85025; 93005; 96361; 96365; 96366; 96375; 96376; 99285; J3490; J7030; J7040; J7050; 93010; 99284-25

== ENCOUNTER 2017-10-07 19:39 | Emergency (ER) | payer MEDICARE, OTHER ==
[2017-10-07] MEDS ORDERED: Sodium Chloride 0.9% 1,000 ML IV ONE (19:54)
[2017-10-07] MEDS ORDERED: Sodium Chloride 0.9% 10 ML Syringe FLUSH PRN (19:54)
[2017-10-07] MEDS ORDERED: Metoprolol Tartrate 5 MG/5 ML SDV IVPUSH ONE (20:15)
--- NOTE | 2017-10-07 20:29 | EDM.PDOC ---
ED HPI GENERAL MEDICAL PROBLEM - General Chief Complaint: Cardiovascular Problem Stated Complaint: RACING HEART Time Seen by Provider: 10/07/17 19:53 Source of Information: Reports: Patient History Limitations: Reports: No Limitations - History of Present Illness INITIAL COMMENTS - FREE TEXT/NARRATIVE: The patient is a 72-year-old male who has a history of atrial fibrillation and multiple recent visits for the same who presents with fast heart rate. He states that he checked his blood pressure tonight and noticed that his heart rate was 160. He felt fine but came to the emergency department for fast heart rate. States that he felt a little tired out today but otherwise felt normal. No chest pain. No shortness of breath. No dizziness or lightheadedness. Denies fever or recent illness. No cough, abdominal pain, vomiting, diarrhea, or urinary symptoms. He's had multiple visits to the emergency department recently for atrial fibrillation with RVR. During his last visit, he converted with diltiazem followed by metoprolol. He's been taking metoprolol as an outpatient. He recently had his dose lowered to 25 mg XL twice a day. He's been on that dose for about a week. - Related Data Allergies Allergy/AdvReac Type Severity Reaction Status Date / Time amlodipine AdvReac Muscle Verified 09/30/17 14:45 Aches lisinopril AdvReac Muscle Verified 09/30/17 14:45 Aches olmesartan [From Benicar] AdvReac Muscle Verified 09/30/17 14:45 Aches Egnclpn-Tcv-Fhy Reductase AdvReac Muscle Verified 09/30/17 14:45 Inhibitor Aches Home Meds: Home Meds Allopurinol [Zyloprim] 300 mg PO DAILY 06/24/17 [History] Ascorbate Calcium [Vitamin C] 500 mg PO DAILY 06/24/17 [History] Cholecalciferol (Vitamin D3) [Vitamin D] 5,000 unit PO DAILY 06/24/17 [History] Hydrochlorothiazide 12.5 mg PO DAILY 06/24/17 [History] Latanoprost 1 drop EYERT DAILY 06/24/17 [History] Levothyroxine 175 mcg PO ACBRK 06/24/17 [History] Losartan Potassium 50 mg PO DAILY 06/24/17 [History] Ferrous Sulfate [Slow Fe] 140 mg PO DAILY 09/19/17 [History] Metoprolol Succinate [Toprol XL] 25 mg PO BID 10/07/17 [History] Past Medical History HEENT History: Reports: Impaired Vision Other HEENT History: wears glasses, impacted cerumen Cardiovascular History: Reports: Arrhythmia, High Cholesterol, Hypertension, Other (See Below) Other Cardiovascular History: tachycardia Respiratory History: Reports: Sleep Apnea, Other (See Below) Other Respiratory History: cough, wears CPAP Gastrointestinal History: Reports: Other (See Below) Other Gastrointestinal History: meckel's diverticulum Musculoskeletal History: Reports: Gout Endocrine/Metabolic History: Reports: Hypothyroidism, Obesity/BMI 30+ Hematologic History: Reports: Other (See Below) Other Hematologic History: thrombocytopenia Dermatologic History: Reports: Other (See Below) Other Dermatologic History: skin lesion to face - Infectious Disease History Infectious Disease History: Reports: Chicken Pox - Past Surgical History GI Surgical History: Reports: Colonoscopy, ERCP, Other (See Below) Other GI Surgeries/Procedures: 2012, laparoscopic abdominal surgery 2015 Musculoskeletal Surgical History: Reports: Other (See Below) Other Musculoskeletal Surgeries/Procedures:: right hip replacement 2015 Social & Family History - Family History Family Medical History: Noncontributory - Tobacco Use Smoking Status *Q: Never Smoker Second Hand Smoke Exposure: No - Caffeine Use Caffeine Use: Reports: None - Alcohol Use Days Per Week of Alcohol Use: 1 (1 per month) Number of Drinks Per Day: 0 Total Drinks Per Week: 0 - Recreational Drug Use Recreational Drug Use: No ED ROS GENERAL - Review of Systems Review Of Systems: See Below Constitutional: Denies: Fever HEENT: Reports: No Symptoms Respiratory: Denies: Shortness of Breath Cardiovascular: Reports: Palpitations. Denies: Chest Pain Endocrine: Reports: No Symptoms GI/Abdominal: Denies: Abdominal Pain, Nausea : Reports: No Symptoms Musculoskeletal: Reports: No Symptoms. Denies: Leg Pain Skin: Reports: No Symptoms Neurological: Reports: Dizziness Psychiatric: Reports: No Symptoms ED EXAM, GENERAL - Physical Exam Exam: See Below Exam Limited By: No Limitations General Appearance: Alert, WD/WN, No Apparent Distress Eye Exam: Bilateral Eye: Normal Inspection, PERRL Ears: Normal External Exam Nose: Normal Inspection Throat/Mouth: Normal Inspection, Normal Oropharynx, Normal Voice, No Airway Compromise Head: Atraumatic, Normocephalic Neck: Normal Inspection, Supple, Non-Tender, Full Range of Motion Respiratory/Chest: No Respiratory Distress, Lungs Clear, Normal Breath Sounds, No Accessory Muscle Use, Chest Non-Tender Cardiovascular: Normal Peripheral Pulses, No Edema, No Murmur, Tachycardia, Irregularly Irregular GI/Abdominal: Soft, Non-Tender, No Distention. No: Rebound Back Exam: Normal Inspection Extremities: Normal Inspection. No: Pedal Edema Neurological: Alert, Oriented, Normal Cognition, No Motor/Sensory Deficits Psychiatric: Normal Affect, Normal Mood Skin Exam: Warm, Dry, Intact, Normal Color, No Rash Course - Vital Signs Last Recorded V/S: Last Vital Signs Temp 36.8 C 10/07/17 19:46 Pulse 92 10/07/17 20:44 Resp 16 10/07/17 20:44 BP 89/77 L 10/07/17 20:44 Pulse Ox 98 10/07/17 20:44 - Orders/Labs/Meds Orders: Active Orders 24 hr Category Date Time Status EKG 12 Lead [EKG Documentation Completion] [RC] STAT Care 10/07/17 19:54 Active Peripheral IV Care [RC] . DIRECTED Care 10/07/17 19:54 Active Peripheral IV Care [RC] . DIRECTED Care 10/07/17 19:54 Active Chest 1V Frontal [CR] Stat Exams 10/07/17 19:54 Taken Peripheral IV Insertion Adult [OM.PC] Routine Oth 10/07/17 19:54 Ordered Labs: Laboratory Tests 10/07/17 10/07/17 10/07/17 Range/Units 20:05 20:05 20:05 WBC 9.93 H (4.23-9.07) K/mm3 RBC 4.28 L (4.63-6.08) M/mm3 Hgb 12.4 L (13.7-17.5) gm/L Hct 38.4 L (40.1-51.0) % MCV 89.7 (79.0-92.2) fl MCH 29.0 (25.7-32.2) pg MCHC 32.3 (32.2-35.5) g/dl RDW Std Deviation 45.5 H (35.1-43.9) fL Plt Count 392 H (163-337) K/mm3 MPV 8.8 L (9.4-12.3) fl Neut % (Auto) 63.6 (34.0-67.9) % Lymph % (Auto) 22.7 (21.8-53.1) % Rains % (Auto) 9.1 (5.3-12.2) % Eos % (Auto) 3.4 (0.8-7.0) Baso % (Auto) 0.6 (0.1-1.2) % Neut # (Auto) 6.32 H (1.78-5.38) K/mm3 Lymph # (Auto) 2.25 (1.32-3.57) K/mm3 Rains # (Auto) 0.90 H (0.30-0.82) K/mm3 Eos # (Auto) 0.34 (0.04-0.54) K/mm3 Baso # (Auto) 0.06 (0.01-0.08) K/mm3 PT 11.4 (9.5-12.1) SECONDS INR 1.05 Sodium 139 (136-145) mEq/L Potassium 4.1 (3.5-5.1) mEq/L Chloride 101 (98-107) mEq/L Carbon Dioxide 26 (21-32) mEq/L Anion Gap 16.1 H (5-15) BUN 20 H (7-18) mg/dL Creatinine 1.3 (0.7-1.3) mg/dL Est Cr Clr Drug Dosing 52.87 mL/min Estimated GFR (MDRD) 55 (>60) mL/min BUN/Creatinine Ratio 15.4 (14-18) Glucose 107 (80-115) mg/dL Calcium 9.1 (8.5-10.1) mg/dL Magnesium 1.8 (1.8-2.4) mg/dl Total Bilirubin 0.2 (0.2-1.0) mg/dL AST 22 (15-37) U/L ALT 24 (16-63) U/L Alkaline Phosphatase 104 (46-116) U/L Troponin I < 0.017 (0.00-0.056) ng/mL Total Protein 7.4 (6.4-8.2) g/dl Albumin 3.1 L (3.4-5.0) g/dl Globulin 4.3 gm/dL Albumin/Globulin Ratio 0.7 L (1-2) Meds: Medications Discontinued Medications Generic Name Dose Route Start Last Admin Trade Name Freq PRN Reason Stop Dose Admin Sodium Chloride 1,000 mls @ 1,000 mls/hr 10/07/17 19:54 10/07/17 20:07 Normal Saline IV 10/07/17 20:53 1,000 mls/hr ONETIME ONE Administration Magnesium Sulfate 2 gm/ Premix 50 mls @ 25 mls/hr 10/07/17 20:30 10/07/17 20: 51 IV 10/07/17 22:29 25 mls/hr ONETIME ONE Administration Metoprolol Tartrate 5 mg 10/07/17 20:15 10/07/17 20:19 Lopressor IVPUSH 10/07/17 20:16 5 mg ONETIME ONE Administration Sodium Chloride 10 ml 10/07/17 19:54 10/07/17 20:15 Saline Flush FLUSH 10 ml ASDIRECTED PRN Administration Keep Vein Open - Re-Assessments/Exams Free Text/Narrative Re-Assessment/Exam: 10/07/17 20:29 EKG shows A. flutter with a rate of 164, T-wave inversions throughout the precordial leads, no significant ST abnormality. QTc is prolonged at 549, intervals otherwise normal. 10/07/17 23:17 CXR showed L pleural effusion, similar to prior. Labs including CBC/chem/trop unremarkable except for low magnesium at 1.7. Magnesium replaced. After 5mg IV metoprolol, patient converted to NSR. BP normal. Feels well. Will increase home dose of metoprolol to 50mg q AM and 25 mg q PM. He has f/u with cardiology scheduled next week. Discussed return precautions. Departure - Departure Time of Disposition: 22:17 Disposition: Home, Self-Care 01 Clinical Impression: Atrial fibrillation with rapid ventricular response Instructions: Atrial Fibrillation, [id number] Referrals: Jarrod Retana MD [Primary Care Provider] - Forms: ED Department Discharge Additional Instructions: 1. Increase metoprolol to 50 mg (2 tabs) in the morning and 1 tab 25 mg in the evening. 2. Continue to keep a blood pressure and heart rate log 3. Follow up with cardiology next week as scheduled 4. Return to the ED if you have new episode of fast heart rate, chest pain, shortness of breath, dizziness, or other concerning symptoms - My Orders Last 24 Hours: My Active Orders 10/07/17 19:54 EKG 12 Lead [EKG Documentation Completion] [RC] STAT Peripheral IV Care [RC] . DIRECTED Peripheral IV Care [RC] . DIRECTED Chest 1V Frontal [CR] Stat Peripheral IV Insertion Adult [OM.PC] Routine - Assessment/Plan Last 24 Hours: My Active Orders 10/07/17 19:54 EKG 12 Lead [EKG Documentation Completion] [RC] STAT Peripheral IV Care [RC] . DIRECTED Peripheral IV Care [RC] . DIRECTED Chest 1V Frontal [CR] Stat Peripheral IV Insertion Adult [OM.PC] Routine
[2017-10-07] MEDS ORDERED: Magnesium Sulfate/Water 2 GM in Premix Bag 1 BAG IV ONE (20:30)
[2017-10-07 20:45] VITALS: BP 89/77
--- NOTE | 2017-10-08 06:58 | CR ---
Chest: Portable view of the chest was obtained. Comparison: Prior chest x-ray of 09/26/17. Minimal scarring and atelectasis is seen within the left base. Blunting of the lateral left costophrenic angle is seen and difficult to exclude minimal pleural effusion. Lungs otherwise are clear. Heart size and mediastinum are normal. Scattered degenerative spurring is noted within the spine. Impression: 1. Minimal scarring and atelectasis within the left lung base. 2. Possible minimal left sided pleural effusion. Diagnostic code #3
== END 2017-10-07 22:26 | disposition home or self-care (01) ==
LOC: JD.ED 19:39
DX: I48.91 Unspecified atrial fibrillation (principal); E78.00 Pure hypercholesterolemia, unspecified; I10 Essential (primary) hypertension; E03.9 Hypothyroidism, unspecified; Z88.8 Allergy status to other drugs, medicaments and biological substances; Z79.899 Other long term (current) drug therapy
CPT/HCPCS: 36415; 71045; 80053; 83735; 84484; 85025; 85610; 93005; 96361; 96365; 96375; 99285; J7040; J7050; 93010; 99284-25; J3475; J3490

== ENCOUNTER 2018-09-15 07:49 | Day surgery (SDC) | payer MEDICARE, OTHER ==
[~2018-09-15 07:49] MED LIST: Lactated Ringers 1,000 ML IV SCH; Lidocaine 1%/Sod Bicarbonate in NS 8.4% 1 ML Syringe IDERM PRN; Sodium Chloride 0.9% 10 ML Syringe FLUSH PRN
[2018-09-15] MEDS ORDERED: Lidocaine 1% 30 ML SDV ONE (08:24)
[2018-09-15] MEDS ORDERED: Bupivacaine 0.25% 30 ML SDV ONE (08:25)
[2018-09-15] MEDS ORDERED: Lidocaine 1% PF 2 ML SDV ONE (08:27)
[2018-09-15] MEDS ORDERED: Propofol 200 MG/20 ML SDV ONE (08:27)
[2018-09-15] MEDS ORDERED: fentaNYL 100 MCG/2 ML SDV ONE (08:28)
--- NOTE | 2018-09-15 09:44 | PCM.PREANE ---
Preanesthetic Assessment - Procedure Proposed Procedure: right carpal tunnel release - Anesthesia/Transfusion/Family Hx Anesthesia History: Prior Anesthesia Without Reaction Family History of Anesthesia Reaction: No Transfusion History: No Prior Transfusion(s) - Review of Systems General: Other (flu last Saturday-) Pulmonary: No Symptoms Cardiovascular: No Symptoms Gastrointestinal: Diarrhea (flu last Saturday), Vomiting Neurological: No Symptoms, Other (right fingers numb) - Physical Assessment NPO Status Date: 09/14/18 NPO Status Time: 21:00 O2 Sat by Pulse Oximetry: 98 Respiratory Rate: 16 Vital Signs: Last Vital Signs Temp 97.3 F 09/15/18 08:10 Pulse 69 09/15/18 08:10 Resp 16 09/15/18 08:10 BP 124/89 09/15/18 08:10 Pulse Ox 98 09/15/18 08:10 Height: 5 ft 9 in Weight: 101.151 kg ASA Class: 3 Mental Status: Alert & Oriented x3 Airway Class: Mallampati = 1 Dentition: Reports: Normal Dentition, Missing Tooth/Teeth Thyro-Mental Finger Breadths: 3 Mouth Opening Finger Breadths: 3 ROM/Head Extension: Full Lungs: Clear to Auscultation, Normal Respiratory Effort Cardiovascular: Regular Rate, Regular Rhythm - Lab Values: Laboratory Last Values MRSA (PCR) Negative 09/02/18 09:32 - Allergies Allergies/Adverse Reactions: Allergies Allergy/AdvReac Type Severity Reaction Status Date / Time amlodipine AdvReac Muscle Verified 09/30/17 14:45 Aches lisinopril AdvReac Muscle Verified 09/30/17 14:45 Aches olmesartan [From Benicar] AdvReac Muscle Verified 09/30/17 14:45 Aches Vogtxwj-Usb-Qoq Reductase AdvReac Muscle Verified 09/30/17 14:45 Inhibitor Aches - Blood Blood Available: No - Anesthesia Plan Beta Daljit: Metoprolol Med Last Dose Date: 09/15/18 Med Last Dose Time: 09:45 - Acknowledgements Anesthesia Type Planned: MAC Pt an Appropriate Candidate for the Planned Anesthesia: Yes Alternatives and Risks of Anesthesia Discussed w Pt/Guardian: Yes Pt/Guardian Understands and Agrees with Anesthesia Plan: Yes PreAnesthesia Questionnaire HEENT History: Reports: Impaired Vision Other HEENT History: wears glasses, impacted cerumen Cardiovascular History: Reports: Arrhythmia, High Cholesterol, Hypertension, Other (See Below) Other Cardiovascular History: tachycardia Respiratory History: Reports: Sleep Apnea, Other (See Below) Other Respiratory History: cough, wears CPAP Gastrointestinal History: Reports: Other (See Below) Other Gastrointestinal History: meckel's diverticulum Genitourinary History: Reports: Other (See Below) Other Genitourinary History: URIC ACID NEPHROLITHIASIS, LITHOTRIPSY, KIDNEY STONE 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 Musculoskeletal History: Reports: Gout, Other (See Below) Other Musculoskeletal History: CARPAL TUNNEL SYNDROME Neurological History: Reports: None Psychiatric History: Reports: None Endocrine/Metabolic History: Reports: Hypothyroidism, Obesity/BMI 30+ Hematologic History: Reports: Other (See Below) Other Hematologic History: thrombocytopenia Immunologic History: Reports: None Oncologic (Cancer) History: Reports: None Dermatologic History: Reports: Other (See Below) Other Dermatologic History: skin lesion to face - Infectious Disease History Infectious Disease History: Reports: Chicken Pox - Past Surgical History Head Surgeries/Procedures: Reports: None Respiratory Surgical History: Reports: None GI Surgical History: Reports: Colonoscopy, ERCP, Other (See Below) Other GI Surgeries/Procedures: 2012, laparoscopic abdominal surgery 2016- opened up Female Surgical History: Reports: Lithotripsy/ESWL, Other (See Below) ( kidney surgery-had to cut out) Endocrine Surgical History: Reports: None Neurological Surgical History: Reports: None Musculoskeletal Surgical History: Reports: Arthroscopic Knee, Shoulder Surgery, Other (See Below) Other Musculoskeletal Surgeries/Procedures:: right hip replacement 02015 Oncologic Surgical History: Reports: None Dermatological Surgical History: Reports: None - SUBSTANCE USE Smoking Status *Q: Never Smoker Tobacco Use Within Last Twelve Months: No Second Hand Smoke Exposure: No Days Per Week of Alcohol Use: 1 Number of Drinks Per Day: 1 Total Drinks Per Week: 1 Recreational Drug Use History: No - HOME MEDS Home Medications: Home Meds Allopurinol [Zyloprim] 300 mg PO DAILY 06/24/17 [History] Ascorbate Calcium [Vitamin C] 500 mg PO DAILY 06/24/17 [History] Cholecalciferol (Vitamin D3) [Vitamin D] 5,000 unit PO DAILY 06/24/17 [History] Latanoprost 1 drop EYERT DAILY 06/24/17 [History] Levothyroxine 175 mcg PO ACBRK 06/24/17 [History] Losartan Potassium 50 mg PO DAILY 06/24/17 [History] hydroCHLOROthiazide [Hydrochlorothiazide] 12.5 mg PO DAILY 06/24/17 [History] Ferrous Sulfate [Slow Fe] 140 mg PO DAILY 09/19/17 [History] Metoprolol Succinate [Toprol XL] 25 mg PO BID 10/07/17 [History] Acetaminophen/HYDROcodone [[place] 325-5 MG] 1 - 2 tab PO Q6H PRN #10 tablet 09/15 [Rx] Apixaban [Eliquis] 5 mg PO DAILY 09/15/18 [History] - CURRENT (IN HOUSE) MEDS Current Meds: Current Medications Lactated Ringer's (Ringers, Lactated) 1,000 mls @ 125 mls/hr IV ASDIRECTED TIFFANIE Stop: 09/15/18 23:00 Last Admin: 09/15/18 08:30 Dose: 125 mls/hr Lidocaine/Sodium Bicarbonate (Buffered Lidocaine 1% In Ns 8.4%) 0.25 ml IDERM ONETIME PRN PRN Reason: Prior to IV Start Stop: 09/15/18 18:00 Last Admin: 09/15/18 08:30 Dose: 0.25 ml Sodium Chloride (Saline Flush) 10 ml FLUSH ASDIRECTED PRN PRN Reason: Keep Vein Open Stop: 09/15/18 18:00 Discontinued Medications Bupivacaine HCl (Marcaine 0.25%) Confirm Administered Dose 30 ml .ROUTE .STK- MED ONE Stop: 09/15/18 08:26 Fentanyl (Sublimaze) Confirm Administered Dose 100 mcg .ROUTE .STK-MED ONE Stop: 09/15/18 08:29 Lidocaine HCl (Xylocaine-Mpf 1%) Confirm Administered Dose 30 ml .ROUTE .STK- MED ONE Stop: 09/15/18 08:25 Lidocaine HCl (Xylocaine-Mpf 1%) Confirm Administered Dose 4 ml .ROUTE .STK-MED ONE Stop: 09/15/18 08:28 Propofol (Diprivan 20 Ml) Confirm Administered Dose 200 mg .ROUTE .STK-MED ONE Stop: 09/15/18 08:28
[2018-09-15] MEDS ORDERED: ceFAZolin 1 GM Vial ONE (09:59)
[2018-09-15] MEDS ORDERED: METOPROLOL SUCCINATE 25 MG PO ONE (10:00)
[2018-09-15] MEDS ORDERED: Lactated Ringers 1,000 ML ONE (10:55)
[2018-09-15] MEDS ORDERED: Ketorolac 30 MG/ML SDV ONE (11:09)
[2018-09-15 11:17] VITALS: BP 134/68
--- NOTE | 2018-09-15 11:17 | PCM48HPAN ---
Post Anesthesia Note - EVALUATION WITHIN 48HRS OF ANESTHETIC Vital Signs in Normal Range: Yes Patient Participated in Evaluation: Yes Respiratory Function Stable: Yes Airway Patent: Yes Cardiovascular Function Stable: Yes Hydration Status Stable: Yes Pain Control Satisfactory: Yes Nausea and Vomiting Control Satisfactory: Yes Mental Status Recovered: Yes Pulse Rate: 75 SaO2: 97 Resp Rate: 16 Temperature: 98.3 F Blood Pressure: 134/68
--- NOTE | 2018-09-16 09:32 | PCM.OPNOTE ---
- General Post-Op/Procedure Note Date of Surgery/Procedure: 09/15/18 Operative Procedure(s): right carpal tunnel release Pre Op Diagnosis: right median nerve compression neuropathy Post-Op Diagnosis: Same Anesthesia Technique: Local, MAC Primary Surgeon: Lex Mart Anesthesia Provider: Cynthia Carlson Gis Database Administrator: Brandee Whitfield EBL in mLs: 5 Complications: None Condition: Good
--- NOTE | 2018-09-16 11:08 | OR ---
DATE OF OPERATION: 09/15/2018 SURGEON: Lex Mart MD OPERATION PERFORMED: Right carpal tunnel release. PREOPERATIVE DIAGNOSIS: Right median nerve compression neuropathy. POSTOPERATIVE DIAGNOSIS: Right median nerve compression neuropathy. ANESTHESIA: Local MAC. ANESTHESIA PROVIDER: Cynthia Carlson CRNA. DIRECTOR OF EARLY CHILDHOOD EDUCATION: Brandee Whitfield PA-C. ESTIMATED BLOOD LOSS: Less than 5 mL. COMPLICATIONS: None. CONDITION: Stable. DESCRIPTION OF PROCEDURE: The patient was identified in the preop holding area. Proper site was marked and identified by the surgeon. The patient was taken back to the operating theater where after adequate anesthesia, the patient's right upper extremity was sterilely prepped and draped in the usual sterile fashion. OR time-out was performed. The patient did not receive antibiotics and it is not indicated for soft tissue hand procedure. At this time, the right upper extremity was exsanguinated and an Esmarch was used as a tourniquet on the forearm. At this time, using 1% lidocaine without epinephrine and 0.25% Marcaine without epinephrine, the palmar cutaneous branch of the median nerve was anesthetized and then the incisional site was anesthetized using Flores cardinal line and ulnar border of the fourth digit as reference. Once this had set up, an incision was made. Blunt dissection was taken down to the palmar cutaneous fascia. Palmar cutaneous fascia was incised with a [place] blade. At this time, the transverse carpal ligament was identified. A small rent was made in the transverse carpal ligament with a [place] blade under direct visualization. Resection of the transverse carpal ligament was done distally using tenotomy scissors making sure to stop short of the palmar arch. At this time, attention was turned proximally after it was found to be adequately released. Using the tenotomy scissors keeping the tips ulnar to protect the palmar cutaneous branch of the median nerve, the superficial forearm fascia as well as the transverse carpal ligament were resected proximally. It was found to be adequate release both proximally and distally. At this time, adequate saline was irrigated through the wound. 4-0 nylon sutures were used closure of the skin. The patient was placed in a sterile soft dressing and sent to PACU in stable condition. MMODAL /[id number]
== END 2018-09-15 11:57 | disposition home or self-care (01) ==
LOC: JD.SDS 07:49
PROVIDERS: ATTEND Orthopaedic Surgery
DX: G56.01 Carpal tunnel syndrome, right upper limb (principal); I10 Essential (primary) hypertension; I48.0 Paroxysmal atrial fibrillation; E66.9 Obesity, unspecified; Z68.33 Body mass index [BMI] 33.0-33.9, adult; E78.00 Pure hypercholesterolemia, unspecified; E03.9 Hypothyroidism, unspecified; M10.9 Gout, unspecified; Z79.01 Long term (current) use of anticoagulants; Z79.899 Other long term (current) drug therapy; Z79.890 Hormone replacement therapy; Z99.89 Dependence on other enabling machines and devices; Z88.8 Allergy status to other drugs, medicaments and biological substances
CPT/HCPCS: 64721; 87641; J0690; J1885; J2001; J2704; J3010; J3490; J7120

== ENCOUNTER 2018-12-05 12:24 | Emergency (ER) | payer MEDICARE, OTHER ==
--- NOTE | 2018-12-05 15:10 | EDM.PDOC ---
ED HPI GENERAL MEDICAL PROBLEM - General Chief Complaint: Cardiovascular Problem Stated Complaint: HIGH HEART RATE - HX OF A-FIB Time Seen by Provider: 12/05/18 14:12 Source of Information: Reports: Patient, Family (), RN Notes Reviewed History Limitations: Reports: No Limitations - History of Present Illness INITIAL COMMENTS - FREE TEXT/NARRATIVE: The patient has a history of paroxysmal atrial fibrillation. He states that he felt cold, weak, and tired while at cardiac rehabilitation this morning. He states that when he went home, he checked his blood pressure around 06:30 to 07: 00, and while the BP machine does not indicate whether his heart rate is regular or irregular, it did indicate that his heart rate was elevated between 104 and 120. The patient states that he cannot sense his own heart rate, but that he can usually tell when he is in atrial fibrillation, because his heart rate will be elevated, and he will feel poorly. The patient states he had similar symptoms around 3 weeks ago. He was seen at the walk-in clinic. He was found to have an elevated WBC count, but he was afebrile, and his chest x-ray was negative. He was nevertheless prescribed a seven-day course of Augmentin, which subsequently gave him watery diarrhea. Here in the ED, the patient's vitals are normal. He states that he feels back to normal, that his symptoms resolved just about the time he arrived at the ED. His exhaust equipment operator appears to indicate that he is in a normal sinus rhythm. The patient's PCP is Dr. Jarrod Retana. His Conveyor Belt Repairer contact is Tiki Tapia NP. - Related Data Allergies Allergy/AdvReac Type Severity Reaction Status Date / Time amlodipine AdvReac Muscle Verified 09/30/17 14:45 Aches lisinopril AdvReac Muscle Verified 09/30/17 14:45 Aches olmesartan [From Benicar] AdvReac Muscle Verified 09/30/17 14:45 Aches Cdqhdwz-Vrw-Qua Reductase AdvReac Muscle Verified 09/30/17 14:45 Inhibitor Aches Home Meds: Home Meds Allopurinol [Zyloprim] 300 mg PO DAILY 06/24/17 [History] Ascorbate Calcium [Vitamin C] 500 mg PO DAILY 06/24/17 [History] Cholecalciferol (Vitamin D3) [Vitamin D] 5,000 unit PO DAILY 06/24/17 [History] Latanoprost 1 drop EYERT DAILY 06/24/17 [History] Levothyroxine 175 mcg PO ACBRK 06/24/17 [History] Losartan Potassium 50 mg PO DAILY 06/24/17 [History] hydroCHLOROthiazide [Hydrochlorothiazide] 12.5 mg PO DAILY 06/24/17 [History] Ferrous Sulfate [Slow Fe] 140 mg PO DAILY 09/19/17 [History] Metoprolol Succinate [Toprol XL] 100 mg PO BID 10/07/17 [History] Apixaban [Eliquis] 5 mg PO BID 09/15/18 [History] Pitavastatin Calcium [Livalo] 1 mg PO DAILY 12/05/18 [History] Past Medical History HEENT History: Reports: Impaired Vision Other HEENT History: wears glasses, impacted cerumen Cardiovascular History: Reports: Afib (paroxysmal), High Cholesterol, Hypertension Respiratory History: Reports: Sleep Apnea (nightly CPAP 17) Gastrointestinal History: Reports: Other (See Below) (Meckel's diverticulum, diagnosed and treated as an adult) Genitourinary History: Reports: Renal Calculus Musculoskeletal History: Reports: Arthritis, Gout (suspected, not confirmed) Endocrine/Metabolic History: Reports: Hypothyroidism, Obesity/BMI 30+ - Infectious Disease History Infectious Disease History: Reports: Chicken Pox - Past Surgical History GI Surgical History: Reports: Colonoscopy (x 4), Other (See Below) (Exploratory laparoscopy with discovery and repair of Meckel's diverticulum). Denies: EGD Male Surgical History: Reports: Kidney Stone Extraction, Lithotripsy (ES[facility]) Musculoskeletal Surgical History: Reports: Hip Replacement (right 2016), Shoulder Surgery (left, open), Other (See Below) (Left knee surgery, open) Social & Family History - Family History Family Medical History: Noncontributory - Tobacco Use Smoking Status *Q: Never Smoker - Caffeine Use Caffeine Use: Reports: Coffee - Alcohol Use Alcohol Use History: Yes Alcohol Use Frequency: Rarely - Recreational Drug Use Recreational Drug Use: No - Living Situation & Occupation Living situation: Reports: , with Spouse, with Family (Son) Occupation: Retired ED ROS GENERAL - Review of Systems Review Of Systems: ROS reveals no pertinent complaints other than HPI. ED EXAM, GENERAL - Physical Exam Exam: See Below Exam Limited By: No Limitations General Appearance: Alert, WD/WN, No Apparent Distress Eye Exam: Bilateral Eye: EOMI, Normal Inspection Ears: Normal External Exam, Hearing Grossly Normal Nose: Normal Inspection Throat/Mouth: Normal Inspection, Normal Lips, Normal Voice, No Airway Compromise Head: Atraumatic, Normocephalic Neck: Normal Inspection, Full Range of Motion Respiratory/Chest: No Respiratory Distress, Lungs Clear, Normal Breath Sounds, No Accessory Muscle Use Cardiovascular: Normal Peripheral Pulses, Regular Rate, Rhythm, No Gallop, No JVD, No Murmur, No Rub Peripheral Pulses: 4+: Radial (L), Radial (R) GI/Abdominal: Normal Bowel Sounds, Soft, Non-Tender, No Organomegaly, No Distention, No Abnormal Bruit, No Mass, Other (Obese) (Male) Exam: Deferred Rectal (Males) Exam: Deferred Back Exam: Normal Inspection, Full Range of Motion, NT Extremities: Normal Inspection, Normal Range of Motion, No Pedal Edema, Normal Capillary Refill Neurological: Alert, Oriented, Normal Cognition, No Motor/Sensory Deficits Psychiatric: Normal Affect Skin Exam: Warm, Dry, Intact, Normal Color, No Rash EKG INTERPRETATION EKG Date: 12/05/18 Time: 12:46 Rhythm: NSR Rate (Beats/Min): 98 [place]: Normal P-Wave: Enlarged (LAE. 1 AVB) QRS: Normal ST-T: Normal QT: Normal Comparison: No Change (09/15/2018) Course - Vital Signs Last Recorded V/S: Last Vital Signs Temp 37.4 C 12/05/18 12:36 Pulse 90 12/05/18 15:23 Resp 16 12/05/18 15:23 BP 115/60 12/05/18 15:23 Pulse Ox 94 L 12/05/18 15:23 - Orders/Labs/Meds Labs: Laboratory Tests 12/05/18 12/05/18 Range/Units 14:10 14:10 WBC 12.35 H (4.23-9.07) K/mm3 RBC 4.00 L (4.63-6.08) M/mm3 Hgb 12.1 L (13.7-17.5) gm/L Hct 36.2 L (40.1-51.0) % MCV 90.5 (79.0-92.2) fl MCH 30.3 (25.7-32.2) pg MCHC 33.4 (32.2-35.5) g/dl RDW Std Deviation 49.2 H (35.1-43.9) fL Plt Count 205 D (163-337) K/mm3 MPV 9.3 L (9.4-12.3) fl Neut % (Auto) 75.6 H (34.0-67.9) % Lymph % (Auto) 13.7 L (21.8-53.1) % Yates % (Auto) 8.6 (5.3-12.2) % Eos % (Auto) 1.5 (0.8-7.0) Baso % (Auto) 0.4 (0.1-1.2) % Neut # (Auto) 9.33 H (1.78-5.38) K/mm3 Lymph # (Auto) 1.69 (1.32-3.57) K/mm3 Yates # (Auto) 1.06 H (0.30-0.82) K/mm3 Eos # (Auto) 0.19 (0.04-0.54) K/mm3 Baso # (Auto) 0.05 (0.01-0.08) K/mm3 Sodium 139 (136-145) mEq/L Potassium 3.6 (3.5-5.1) mEq/L Chloride 103 (98-107) mEq/L Carbon Dioxide 23 (21-32) mEq/L Anion Gap 16.6 H (5-15) BUN 21 H (7-18) mg/dL Creatinine 1.2 (0.7-1.3) mg/dL Est Cr Clr Drug Dosing 56.46 mL/min Estimated GFR (MDRD) 60 (>60) mL/min BUN/Creatinine Ratio 17.5 (14-18) Glucose 107 (83-115) mg/dL Calcium 8.8 (8.5-10.1) mg/dL Total Bilirubin 0.5 (0.2-1.0) mg/dL AST 16 (15-37) U/L ALT 19 (16-63) U/L Alkaline Phosphatase 94 (46-116) U/L Troponin I < 0.017 (0.00-0.056) ng/mL Total Protein 7.1 (6.4-8.2) g/dl Albumin 3.4 (3.4-5.0) g/dl Globulin 3.7 gm/dL Albumin/Globulin Ratio 0.9 L (1-2) - Re-Assessments/Exams Free Text/Narrative Re-Assessment/Exam: 12/05/18 15:04 As above, the patient was feeling poorly earlier, but did not know how to check his pulse to see if it was regular or irregular. Now that he is here in the emergency department, he feels better, and his EKG and museum host/hostess find that he is in a normal sinus rhythm. While I cannot prove it, I suspect that the patient may have been in atrial fibrillation earlier, as many patients report that they feel poorly when they are in nature fibrillation, even if they are unaware of their heartbeat. I suggested to the patient and his that they consider purchasing a finger pulse oximeter, not for the oxygen reading, but because it makes an audible beep with the patient's heartbeat. If the beep is regular, it is unlikely that he is in A-fib, whereas if it is irregular, the patient likely is in A-fib. I recommended that if he remains in A-fib for about an hour, that he come into the ED for evaluation. Departure - Departure Time of Disposition: 15:06 Disposition: Home, Self-Care 01 Condition: Good Clinical Impression: Paroxysmal atrial fibrillation with rapid ventricular response Instructions: What You Need to Know About Warfarin, Atrial Fibrillation, Easy- to-Read Referrals: Jarrod Retana MD [Primary Care Provider] - Tiki Tapia NP [Ordering Only Provider] - Forms: ED Department Discharge Additional Instructions: You were seen in the emergency room after feeling poorly at cardiac rehabilitation, with an elevated heart rate on your blood pressure machine. Workup in the ER included blood work and an ECG, all of which was unremarkable. You have not suffered a heart attack. You were in a normal sinus rhythm. Based on your history, physical exam, and ER tests, it is most likely that you were in A. fib earlier this morning, but converted to a normal sinus rhythm before you arrived at the ER. Since you cannot detect your own pulse, we suggested that you purchase an over- the-counter finger pulse oximeter. When on, it makes an audible beep according to your heart rate. If the beep is regular, you are not likely in atrial fibrillation, however, if the beep is irregular, there is a good chance that you are in atrial fibrillation. If you suspect that you are in atrial fibrillation for about an hour or more, we recommend that you return to the ER for reevaluation. If any other problems, please do not hesitate to return to the ER.
[2018-12-05 15:24] VITALS: BP 115/60
== END 2018-12-05 15:20 | disposition home or self-care (01) ==
LOC: JD.ED 12:24
DX: I48.0 Paroxysmal atrial fibrillation (principal); I10 Essential (primary) hypertension; E78.00 Pure hypercholesterolemia, unspecified; E03.9 Hypothyroidism, unspecified; Z79.899 Other long term (current) drug therapy; Z88.8 Allergy status to other drugs, medicaments and biological substances
CPT/HCPCS: 36415; 80053; 84484; 85025; 93005; 93010; 99282; 99285-25

== ENCOUNTER 2019-06-01 07:04 | Inpatient (IN) | payer MEDICARE, OTHER ==
--- NOTE | 2019-05-27 10:00 | PCM.PREANE ---
Preanesthetic Assessment - Procedure Proposed Procedure: Left Total Knee Arthroplasty - Anesthesia/Transfusion/Family Hx Anesthesia History: Prior Anesthesia Without Reaction Family History of Anesthesia Reaction: No Transfusion History: No Prior Transfusion(s) Intubation History: Unknown - Review of Systems General: No Symptoms Pulmonary: No Symptoms (RUTHY- CPAP) Cardiovascular: No Symptoms (History of paraxysmal atrial fibrillation- patient currently on eliquis last dose:05/29/2019 , HTN) Gastrointestinal: No Symptoms Neurological: No Symptoms (Lower back pain) Other: Reports: None (History of kidney stones), Easy Bleeding, Easy Bruising, Thyroid Problems (Hypothyroid) - Physical Assessment NPO Status Date: 05/31/19 NPO Status Time: 17:30 Vital Signs: HR:71 BP:133/71 Resp:16 SAT:98% Temp:97.3 Height: 1.75 m Weight: 103 kg ASA Class: 3 Mental Status: Alert & Oriented x3 Airway Class: Mallampati = 1 Dentition: Reports: Normal Dentition, Caries Thyro-Mental Finger Breadths: 3 Mouth Opening Finger Breadths: 3 ROM/Head Extension: Full Lungs: Clear to Auscultation, Normal Respiratory Effort Cardiovascular: Regular Rate, Regular Rhythm, No Murmurs - Lab Values: Laboratory Last Values MRSA (PCR) Negative 05/26/19 09:46 All labs reviewed and noted and within acceptable ranges to proceed with scheduled procedure. - Imaging/EKG Impressions: EKG: NSR rate= 71, borderline prolonged ANITRA. CXR: negative Echocardiogram: 2018- EF= 60-65% - Allergies Allergies/Adverse Reactions: Allergies Allergy/AdvReac Type Severity Reaction Status Date / Time brimonidine [From Simbrinza] Allergy Redness Verified 05/27/19 15:50 brinzolamide [From Simbrinza] Allergy Redness Verified 05/27/19 15:50 amlodipine AdvReac Muscle Verified 05/27/19 15:50 Aches lisinopril AdvReac Muscle Verified 05/27/19 15:50 Aches olmesartan [From Benicar] AdvReac Muscle Verified 05/27/19 15:50 Aches Uypwqah-Xxp-Reg Reductase AdvReac Muscle Verified 05/27/19 15:50 Inhibitor Aches - Anesthesia Plan Pre-Op Medication Ordered: Beta Daljit, Other (PreOp meds: lyrica, tylenol, oxycodone all P.O. at 0930) Beta Daljit: Metoprolol Med Last Dose Date: 06/01/19 Med Last Dose Time: 07:10 - Acknowledgements Anesthesia Type Planned: Spinal (Left Adductor Canal Block under US guidance for post operative pain control requested by Dr. Mart) Pt an Appropriate Candidate for the Planned Anesthesia: Yes Alternatives and Risks of Anesthesia Discussed w Pt/Guardian: Yes Pt/Guardian Understands and Agrees with Anesthesia Plan: Yes PreAnesthesia Questionnaire HEENT History: Reports: Impaired Vision Other HEENT History: wears glasses, impacted cerumen Cardiovascular History: Reports: Afib (paroxysmal), High Cholesterol, Hypertension Other Cardiovascular History: tachycardia Respiratory History: Reports: Sleep Apnea (nightly CPAP 17) Other Respiratory History: cough, wears CPAP Gastrointestinal History: Reports: Other (See Below) (Meckel's diverticulum, diagnosed and treated as an adult) Other Gastrointestinal History: meckel's diverticulum Genitourinary History: Reports: Renal Calculus Other Genitourinary History: URIC ACID NEPHROLITHIASIS, LITHOTRIPSY, KIDNEY STONE 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 History: Reports: None Musculoskeletal History: Reports: Arthritis, Gout (suspected, not confirmed) Other Musculoskeletal History: CARPAL TUNNEL SYNDROME Neurological History: Reports: None Psychiatric History: Reports: None Endocrine/Metabolic History: Reports: Hypothyroidism, Obesity/BMI 30+ Hematologic History: Reports: Other (See Below) Other Hematologic History: thrombocytopenia Immunologic History: Reports: None Oncologic (Cancer) History: Reports: None Dermatologic History: Reports: Other (See Below) Other Dermatologic History: skin lesion to face - Infectious Disease History Infectious Disease History: Reports: Chicken Pox - Past Surgical History GI Surgical History: Reports: Colonoscopy (x 4), Other (See Below) (Exploratory laparoscopy with discovery and repair of Meckel's diverticulum). Denies: EGD Male Surgical History: Reports: Kidney Stone Extraction, Lithotripsy (ES[facility]) Musculoskeletal Surgical History: Reports: Hip Replacement (right 2016), Shoulder Surgery (left, open), Other (See Below) (Left knee surgery, open) - HOME MEDS Home Medications: Home Meds Allopurinol [Zyloprim] 300 mg PO DAILY 06/24/17 [History] Ascorbate Calcium [Vitamin C] 500 mg PO DAILY 06/24/17 [History] Cholecalciferol (Vitamin D3) [Vitamin D] 5,000 unit PO DAILY 06/24/17 [History] Levothyroxine 175 mcg PO ACBRK 06/24/17 [History] Losartan Potassium 50 mg PO DAILY 06/24/17 [History] hydroCHLOROthiazide [Hydrochlorothiazide] 12.5 mg PO DAILY 06/24/17 [History] Ferrous Sulfate [Slow Fe] 140 mg PO DAILY 09/19/17 [History] Metoprolol Succinate [Toprol XL] 100 mg PO BID 10/07/17 [History] Apixaban [Eliquis] 5 mg PO BID 09/15/18 [History] Pitavastatin Calcium [Livalo] 1 mg PO DAILY 12/05/18 [History] Latanoprost 1 drop EYERT BEDTIME 05/27/19 [History] - CURRENT (IN HOUSE) MEDS Current Meds: Current Medications Lactated Ringer's (Ringers, Lactated) 1,000 mls @ 125 mls/hr IV ASDIRECTED TIFFANIE Stop: 06/01/19 23:00 Lidocaine/Sodium Bicarbonate (Buffered Lidocaine 1% In Ns 8.4%) 0.25 ml IDERM ONETIME PRN PRN Reason: Prior to IV Start Stop: 06/01/19 18:00 Sodium Chloride (Saline Flush) 10 ml FLUSH ASDIRECTED PRN PRN Reason: Keep Vein Open Stop: 06/01/19 18:00
[~2019-06-01 07:04] MED LIST changes: +Acetaminophen 325 MG Tab PO SCH; +EPINEPHrine 1 MG/ML SDV ONE; +Ketamine 500 mg/10 ML MDV ONE; +Lactated Ringers 1,000 ML ONE; +Lidocaine 1% 6 ML ONE; +Midazolam 1 MG/ML 2 ML SDV ONE; +Morphine 2 MG/ML Syringe IVPUSH PRN; +Naloxone 0.4 MG/ML SDV IVPUSH PRN; +Ondansetron 4 MG/2 ML SDV IVPUSH PRN; +Ondansetron 4 MG/2 ML SDV ONE; +Phenylephrine/Normal Saline 100 MCG/ML 10 ML Syringe ONE; +Pregabalin 25 MG Cap PO SCH; +Propofol 200 MG/20 ML SDV ONE; +Ropivacaine 0.5% 5 MG/ML 30 ML SDV ONE; +ceFAZolin 1 GM Vial ONE; +fentaNYL 100 MCG/2 ML SDV ONE; +oxyCODONE ER 10 MG TAB.ER PO SCH
--- NOTE | 2019-06-01 09:20 | PCM.CONS ---
H&P History of Present Illness - General Date of Service: 06/01/19 Admit Problem/Dx: Admission Diagnosis/Problem Admission Diagnosis/Problem Osteoarthritis of knee Source of Information: Patient, Old Records, Provider, RN, RN Notes Reviewed History Limitations: Reports: No Limitations - History of Present Illness Initial Comments - Free Text/Narative: Dakotah Dunlap is a 74 yo male patient of Dr. Mart who is post-operative day 0 of left TKA. Hospital medicine was consulted for post-operative medical care of the following listed medical conditions. At this time he is resting comfortably in bed. Pain is controlled. He denies any chest pain, shortness of breath, palpitations, nausea, or vomiting. He carries a history of: Nephrolith, HTN, Hypothyroidism, HLD, Paroxysmal A-fib on Eliquis, Abnormal glucose, RUTHY on CPAP , Gout, Chronic lower back pain, Meckel's Diverticulum, thrombocytopenia. He was never a smoker. He is a full code. His primary care provider is Dr. Retana. Left Knee Pain Score (Numeric/FACES): 2 - Related Data Allergies/Adverse Reactions: Allergies Allergy/AdvReac Type Severity Reaction Status Date / Time brimonidine [From Simbrinza] Allergy Redness Verified 06/01/19 14:37 brinzolamide [From Simbrinza] Allergy Redness Verified 06/01/19 14:37 amlodipine AdvReac Muscle Verified 06/01/19 14:37 Aches lisinopril AdvReac Muscle Verified 06/01/19 14:37 Aches olmesartan [From Benicar] AdvReac Muscle Verified 06/01/19 14:37 Aches Scpyuyi-Bwx-Zhd Reductase AdvReac Muscle Verified 06/01/19 14:37 Inhibitor Aches Home Medications: Home Meds Allopurinol [Zyloprim] 300 mg PO DAILY 06/24/17 [History] Ascorbate Calcium [Vitamin C] 500 mg PO DAILY 06/24/17 [History] Cholecalciferol (Vitamin D3) [Vitamin D] 5,000 unit PO DAILY 06/24/17 [History] Levothyroxine 175 mcg PO ACBRK 06/24/17 [History] Losartan Potassium 50 mg PO DAILY 06/24/17 [History] hydroCHLOROthiazide [Hydrochlorothiazide] 12.5 mg PO DAILY 06/24/17 [History] Ferrous Sulfate [Slow Fe] 140 mg PO DAILY 09/19/17 [History] Metoprolol Succinate [Toprol XL] 100 mg PO BID 10/07/17 [History] Apixaban [Eliquis] 5 mg PO BID 09/15/18 [History] Pitavastatin Calcium [Livalo] 1 mg PO DAILY 12/05/18 [History] Latanoprost 1 drop EYERT BEDTIME 05/27/19 [History] Past Medical History HEENT History: Reports: Impaired Vision Other HEENT History: wears glasses, impacted cerumen Cardiovascular History: Reports: Afib, High Cholesterol, Hypertension Other Cardiovascular History: tachycardia Respiratory History: Reports: Sleep Apnea Other Respiratory History: cough, wears CPAP Gastrointestinal History: Reports: Other (See Below) Other Gastrointestinal History: meckel's diverticulum Genitourinary History: Reports: Renal Calculus Other Genitourinary History: URIC ACID NEPHROLITHIASIS, LITHOTRIPSY, KIDNEY STONE 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 INFORMATION SYSTEMS ENGINEER History: Reports: None Musculoskeletal History: Reports: Arthritis, Gout, Osteoarthritis Other Musculoskeletal History: CARPAL TUNNEL SYNDROME Neurological History: Reports: None Psychiatric History: Reports: None Endocrine/Metabolic History: Reports: Hypothyroidism, Obesity/BMI 30+ Hematologic History: Reports: Idiopathic Thrombocytopenia, Other (See Below) Other Hematologic History: thrombocytopenia Immunologic History: Reports: None Oncologic (Cancer) History: Reports: None Dermatologic History: Reports: Other (See Below) Other Dermatologic History: skin lesion to face - Infectious Disease History Infectious Disease History: Reports: Chicken Pox - Past Surgical History Head Surgeries/Procedures: Reports: None Respiratory Surgical History: Reports: None GI Surgical History: Reports: Colonoscopy, Small Bowel, Other (See Below) Other GI Surgeries/Procedures: 2012, laparoscopic abdominal surgery 2016- opened up Female Surgical History: Reports: Lithotripsy/ESWL, Other (See Below) Male Surgical History: Reports: Kidney Stone Extraction, Lithotripsy (ESWL) Endocrine Surgical History: Reports: None Neurological Surgical History: Reports: None Musculoskeletal Surgical History: Reports: Carpal Tunnel, Hip Replacement, Shoulder Surgery, Other (See Below) Other Musculoskeletal Surgeries/Procedures:: right hip replacement 2015 Oncologic Surgical History: Reports: None Dermatological Surgical History: Reports: None Social & Family History - Family History Family Medical History: Noncontributory - Tobacco Use Smoking Status *Q: Former Smoker Used Tobacco, but Quit: Yes Month/Year Tobacco Last Used: 2009 - Caffeine Use Caffeine Use: Reports: Coffee, Soda - Recreational Drug Use Recreational Drug Use: No Drug Use in Last 12 Months: No - Living Situation & Occupation Living situation: Reports: , with Spouse, with Family (Son) Occupation: Retired H&P Review of Systems - Review of Systems: Review Of Systems: See Below General: Reports: No Symptoms. Denies: Fever, Chills HEENT: Reports: No Symptoms. Denies: Headaches, Sore Throat Pulmonary: Reports: No Symptoms. Denies: Shortness of Breath, Wheezing, Cough, Sputum Cardiovascular: Reports: No Symptoms. Denies: Chest Pain, Palpitations, Dyspnea on Exertion Gastrointestinal: Reports: No Symptoms. Denies: Abdominal Pain, Constipation, Diarrhea, Nausea, Vomiting Genitourinary: Reports: No Symptoms. Denies: Pain Musculoskeletal: Reports: Leg Pain (left ) Skin: Reports: No Symptoms. Denies: Cyanosis Psychiatric: Reports: No Symptoms. Denies: Confusion Neurological: Reports: No Symptoms Hematologic/Lymphatic: Reports: No Symptoms Immunologic: Reports: No Symptoms Exam - Exam Exam: See Below - Exam Quality Assessment: DVT Prophylaxis General: Alert, Oriented, Cooperative. No: Mild Distress HEENT: Conjunctiva Clear, EACs Clear, EOMI, Hearing Intact, Mucosa Moist & Frank , Nares Patent, Posterior Pharynx Clear, PERRLA Neck: Supple, Trachea Midline Lungs: Clear to Auscultation, Normal Respiratory Effort Cardiovascular: Regular Rate, Regular Rhythm GI/Abdominal Exam: Normal Bowel Sounds, Soft, Non-Tender, No Distention, No Abnormal Bruit (Male) Exam: Deferred Rectal (Males) Exam: Deferred Back Exam: Normal Inspection, Full Range of Motion Extremities: No Pedal Edema, Normal Capillary Refill, Leg Pain, Limited Range of Motion, Other (Bandage in place on left leg. Bandage is dry and intact. Cooling pack in place. ) Peripheral Pulses: 2+: Radial (L), Radial (R), Dorsalis Pedis (L), Dorsalis Pedis (R) Skin: Warm, Dry, Intact Neurological: Cranial Nerves Intact (Grossly ) Neuro Extensive - Mental Status: Alert, Oriented x3, Normal Mood/Affect Consult PN Assessment/Plan POD#: 0 Procedures: Procedures AGENT NOS ASSAY W/OPTIC (09/19/17) AIRWAY INHALATION TREATMENT (06/24/17) APPLICATION LOWER LEG SPLINT (12/16/16) ASSAY OF LACTIC ACID (09/19/17) ASSAY OF LIPASE (09/19/17) ASSAY OF MAGNESIUM (10/07/17) ASSAY OF TROPONIN QUANT (12/05/18) ASSAY THYROID STIM HORMONE (09/19/17) BLOOD CULTURE FOR BACTERIA (09/19/17) BLOOD GASES ANY COMBINATION (09/19/17) BLOOD TYPING SEROLOGIC ABO (04/23/16) BLOOD TYPING SEROLOGIC RH(D) (04/23/16) C-REACTIVE PROTEIN (09/26/17) CARPAL TUNNEL SURGERY (09/15/18) CHEST X-RAY 1 VIEW FRONTAL (04/28/16) CHEST X-RAY 2VW FRONTAL&LATL (06/24/17) CHYLMD PNEUM DNA AMP PROBE (09/19/17) COMPLETE CBC W/AUTO DIFF WBC (12/05/18) COMPREHEN METABOLIC PANEL (12/05/18) CT ABD & PELV W/CONTRAST (04/28/16) CT ANGIOGRAPHY CHEST (09/19/17) DETECT AGENT NOS DNA AMP (09/19/17) DRAIN/INJ JOINT/BURSA W/O US (08/31/15) ECG MONIT/REPRT UP TO 48 HRS (09/23/17) ECG MONIT/REPRT UP TO 48 HRS (09/23/17) ECHO EXAM OF ABDOMEN (04/28/16) ELECTROCARDIOGRAM TRACING (12/05/18) EMERGENCY DEPT VISIT (12/05/18) EMERGENCY DEPT VISIT (06/24/17) EMERGENCY DEPT VISIT (12/16/16) EMERGENCY DEPT VISIT (04/28/16) EMERGENCY DEPT VISIT (10/25/15) FIBRIN DEGRADATION QUANT (09/19/17) GAIT TRAINING THERAPY (04/28/16) GLYCOSYLATED HEMOGLOBIN TEST (09/19/17) HYDRATE IV INFUSION ADD-ON (10/07/17) INFLUENZA ASSAY W/OPTIC (06/24/17) INTMD RPR S/A/T/EXT 2.6-7.5 (10/25/15) M.PNEUMON DNA AMP PROBE (09/19/17) MANUAL THERAPY 1/> REGIONS (08/20/18) MASSAGE THERAPY (05/30/17) MEASURE BLOOD OXYGEN LEVEL (04/23/16) METABOLIC PANEL TOTAL CA (09/19/17) MR-STAPH DNA AMP PROBE (09/15/18) MRI LUMBAR SPINE W/O DYE (05/14/18) MRI NECK SPINE W/O DYE (05/15/18) MYCOPLASMA ANTIBODY (09/19/17) NEUROMUSCULAR REEDUCATION (08/20/18) OT EVAL LOW COMPLEX 30 MIN (09/19/17) OT EVALUATION (04/28/16) PROTHROMBIN TIME (10/07/17) PT EVAL LOW COMPLEX 20 MIN (07/29/18) PT EVAL MOD COMPLEX 30 MIN (05/30/17) PT EVALUATION (05/28/16) RBC ANTIBODY SCREEN (04/23/16) RESP VIRUS 12-25 TARGETS (09/19/17) ROUTINE VENIPUNCTURE (12/05/18) SELF CARE MNGMENT TRAINING (04/28/16) THER/PROPH/DIAG INJ IV PUSH (09/26/17) THER/PROPH/DIAG IV INF ADDON (09/30/17) THER/PROPH/DIAG IV INF INIT (10/07/17) THERAPEUTIC ACTIVITIES (04/28/16) THERAPEUTIC EXERCISES (09/02/18) THROMBOPLASTIN TIME PARTIAL (09/19/17) TTE W/DOPPLER COMPLETE (09/19/17) TX/PRO/DX INJ NEW DRUG ADDON (10/07/17) TX/PRO/DX INJ SAME DRUG DENTAL OFFICE ASSISTANT (09/30/17) URINALYSIS AUTO W/SCOPE (09/19/17) WITHDRAWAL OF ARTERIAL BLOOD (09/19/17) X-RAY EXAM CHEST 1 VIEW (10/07/17) X-RAY EXAM CHEST 2 VIEWS (09/19/17) X-RAY EXAM HIP UNI 1 VIEW (04/23/16) X-RAY EXAM OF ABDOMEN (04/28/16) X-RAY EXAM OF ANKLE (12/16/16) X-RAY EXAM OF HAND (10/25/15) X-RAY EXAM OF SKULL (05/14/18) X-RAY EXAM OF SMALL BOWEL (04/28/16) (1) S/P total knee arthroplasty SNOMED Code(s): 9165939536797, 350358816, 9917541483551 Code(s): Z96.659 - PRESENCE OF UNSPECIFIED ARTIFICIAL KNEE JOINT Priority: High Current Visit: Yes Qualifiers: Laterality: left Qualified Code(s): Z96.652 - Presence of left artificial knee joint (2) Osteoarthritis SNOMED Code(s): 900747564 Code(s): M19.90 - UNSPECIFIED OSTEOARTHRITIS, UNSPECIFIED SITE Priority: High Current Visit: Yes Qualifiers: Osteoarthritis location: knee Osteoarthritis type: primary Laterality: left Qualified Code(s): M17.12 - Unilateral primary osteoarthritis, left knee (3) Atrial fibrillation SNOMED Code(s): 40701490 Code(s): I48.91 - UNSPECIFIED ATRIAL FIBRILLATION Priority: Medium Current Visit: Yes Qualifiers: Atrial fibrillation type: paroxysmal Qualified Code(s): I48.0 - Paroxysmal atrial fibrillation (4) History of gout SNOMED Code(s): 087995736 Code(s): Z87.39 - PERSONAL HISTORY OF DISEASES OF THE MS SYS AND CONN TISS Priority: Medium Current Visit: No (5) History of nephrolithiasis SNOMED Code(s): 933589764 Code(s): Z87.442 - PERSONAL HISTORY OF URINARY CALCULI Priority: Medium Current Visit: No (6) HTN (hypertension) SNOMED Code(s): 01437146 Code(s): I10 - ESSENTIAL (PRIMARY) HYPERTENSION Priority: Medium Current Visit: No Qualifiers: Hypertension type: essential hypertension Qualified Code(s): I10 - Essential (primary) hypertension (7) Hyperlipidemia SNOMED Code(s): 95036228 Code(s): E78.5 - HYPERLIPIDEMIA, UNSPECIFIED Priority: Medium Current Visit: No Qualifiers: Hyperlipidemia type: unspecified Qualified Code(s): E78.5 - Hyperlipidemia , unspecified (8) Hypothyroidism SNOMED Code(s): 27363090 Code(s): E03.9 - HYPOTHYROIDISM, UNSPECIFIED Priority: Medium Current Visit: No Qualifiers: Hypothyroidism type: unspecified Qualified Code(s): E03.9 - Hypothyroidism , unspecified (9) RUTHY on CPAP SNOMED Code(s): 06635760 Code(s): G47.33 - OBSTRUCTIVE SLEEP APNEA (ADULT) (PEDIATRIC) Priority: Medium Current Visit: No Problem List Initiated/Reviewed/Updated: Yes Plan: I/P: Acute: S/P left total knee arthroplasty - post-operative day 0 -DVT prophylaxis and pain management per primary care team -PT/OT -IS/RT -Monitor oxygen saturation -Titrate oxygen as needed -Home medications reviewed -Vital signs stable -Monitor labs -Pre-operative Hgb was 13.8 -Pre-operative GFR was 65 -Pre-operative A1C was 5.8% -Pre-operative CXR showed left basilar atelectasis -Pre-operative 12-lead EKG showed Sinus rhythm at71 BPM with a 1st degree HB. Osteoarthritis of left knee -Pain management per primary care team Chronic: Nephrolith HTN Hypothyroidism HLD Paroxysmal A-fib on Eliquis Abnormal glucose RUTHY on CPAP Gout Chronic lower back pain Meckel's Diverticulum Thrombocytopenia Plan: Telemetry CM for discharge planning GI prophylaxis Home medications as indicated Other orders as listed above Routine AM labs He is a full code. His PCP is Dr. Retana Thank you for allowing us to participate in the care of this patient!! Requesting Provider: Dr. Mart Date Consult Requested: 06/01/19 Patient History Reviewed: Yes Admission H&P Reviewed: Yes
[2019-06-01] MEDS ORDERED: ePHEDrine/Normal Saline 25 MG/5 ML Syringe ONE ×2 (10:21→11:55)
[2019-06-01] MEDS ORDERED: HYDROmorphone 0.5 MG/0.5 ML Syringe IVPUSH PRN (10:54)
[2019-06-01] MEDS ORDERED: Albuterol 0.083% 2.5 MG/3 ML Neb Soln NEB PRN (10:54)
[2019-06-01] MEDS ORDERED: Ondansetron 4 MG/2 ML SDV IVPUSH PRN (10:54)
[2019-06-01] MEDS ORDERED: fentaNYL 100 MCG/2 ML SDV IVPUSH PRN (10:54)
[2019-06-01] MEDS ORDERED: ePHEDrine 50 MG/ML SDV IVPUSH PRN (10:54)
[2019-06-01] MEDS ORDERED: diphenhydrAMINE 50 MG/ML SDV IVPUSH PRN (10:54)
[2019-06-01] MEDS ORDERED: Phenylephrine 1 MG in Sodium Chloride 0.9% 10 ML IV SCH (11:00)
[2019-06-01] MEDS: Iodine/Sodium Iodide 2% Tincture 30 ML Bottle ONE ×2 (11:23→11:58)
[2019-06-01] MEDS: ceFAZolin 1 GM Vial ONE ×2 (11:24→12:01)
[2019-06-01] MEDS ORDERED: Lactated Ringers 1,000 ML ONE (11:24)
[2019-06-01] MEDS: Vancomycin 1 GM SDV ONE ×2 (11:25→12:08)
[2019-06-01] MEDS: Morphine 8 MG, EPINEPHrine 0.3 MG, Cefuroxime 750 MG, Ketorolac 30 MG, Sodium Chloride ... ONE ×15 (11:25→13:50)
[2019-06-01] MEDS: Bupivacaine 0.25% 10 ML SDV ONE ×4 (11:25→12:06)
[2019-06-01] MEDS: Triamcinolone Acetonide 40 MG/ML 1 ML MDV ONE ×2 (11:26→12:01)
[2019-06-01] MEDS ORDERED: Midazolam 1 MG/ML 2 ML SDV ONE (11:37)
[2019-06-01] MEDS ORDERED: Phenylephrine/Normal Saline 100 MCG/ML 10 ML Syringe ONE (11:54)
[2019-06-01] MEDS ORDERED: Ketorolac 15 MG/ML SDV IVPUSH PRN (12:00)
--- NOTE | 2019-06-01 12:49 | PCM.POSTAN ---
POST ANESTHESIA ASSESSMENT - MENTAL STATUS Mental Status: Alert - VITAL SIGNS Vital Signs: Last Vital Signs Temp 97.9 06/01/19 12:38 Pulse 81 06/01/19 12:38 Resp 7 06/01/19 12:38 BP 120/58 06/01/19 12:38 Pulse Ox 93 06/01/19 12:38 - RESPIRATORY Respiratory Status: Respiratory Rate WNL, Airway Patent, O2 Saturation Stable - CARDIOVASCULAR CV Status: Pulse Rate WNL, Blood Pressure Stable - GASTROINTESTINAL GI Status: No Symptoms - POST OP HYDRATION Hydration Status: Adequate & Stable
--- NOTE | 2019-06-01 13:10 | PCM.SN ---
- Free Text/Narrative Note: Left selective femoral nerve block at the adductor canal for post-procedure pain control under US guidance requested by Dr. Mart. Time Out: 1255 Start: 1255 End: 1302 Chart reviewed. Consent signed. Questions answered. Appropriate monitors applied. Time out performed. Left mid-shaft femur identified with ultrasound, scanning medially of femur, the femoral artery in the adductor canal visualized , and the femoral nerve located laterally to the artery. The skin was prepped lateral to the ultrasound probe with chlorahexadine times two. The 21ga 4 insulated block needle was inserted under direct ultrasound guidance into the adductor canal. 25mL of 0.5% ropivacaine with 1:200,000 epinephrine was injected circumferentially around the nerve with intermittent negative aspiration noted. Patient tolerated the procedure well. Sterile technique noted along with sterile gloves, mask, and sterile probe cover. See picture on progress note and vital signs on nurses notes. Block completed in PACU. Ashley Contreras CRNA
[2019-06-01] MEDS: Acetaminophen/oxyCODONE 325-5 MG Tab PO PRN ×2 (13:12→17:49)
--- NOTE | 2019-06-01 14:07 | CR ---
Left knee: AP and lateral views of the left knee were obtained. Comparison: No prior knee exam. Knee prosthesis is seen. Components are aligned. Underlying bony structures are intact. Soft tissue air is noted from the surgical procedure. No acute fracture or other abnormality is seen. Impression: 1. Satisfactory postop radiographic appearance of recently placed left knee prosthesis. Diagnostic code #2 This report was dictated in [place] Standard Time
[2019-06-01] MEDS: ceFAZolin 2 GM in Premix Bag 1 BAG IV SCH (17:48)
[2019-06-01] MEDS: Famotidine 20 MG Tab PO SCH (20:47)
[2019-06-01] MEDS: Docusate Sodium 100 MG Cap PO SCH (20:48)
[2019-06-01] MEDS: Metoprolol Succinate 50 MG Tab.ER PO SCH (20:49)
[2019-06-01] MEDS ORDERED: Cyclobenzaprine 10 MG Tab PO PRN (21:00)
[2019-06-01] MEDS ORDERED: Magnesium Hydroxide 400 MG/5 ML Susp 30 ML Cup PO PRN (21:00)
[2019-06-01] MEDS ORDERED: Sennosides 8.6 MG Tab PO PRN (21:00)
[2019-06-01] MEDS ORDERED: Latanoprost 0.005% Ophth Soln 2.5 ML Bottle EYERT SCH ×2 (21:00)
[2019-06-02] MEDS: ceFAZolin 2 GM in Premix Bag 1 BAG IV SCH ×2 (01:10→11:19)
[2019-06-02] MEDS: Acetaminophen/oxyCODONE 325-5 MG Tab PO PRN (06:12)
--- NOTE | 2019-06-02 07:08 | PCM.CONSN ---
- General Info Date of Service: 06/02/19 Admission Dx/Problem (Free Text): Admission Diagnosis/Problem Admission Diagnosis/Problem Osteoarthritis of knee Functional Status: Reports: Pain Controlled, Tolerating Diet, Ambulating, Urinating, Incentive Spirometry. Denies: New Symptoms - Review of Systems General: Reports: No Symptoms. Denies: Fever, Weakness, Chills HEENT: Reports: No Symptoms. Denies: Headaches, Sore Throat Pulmonary: Reports: No Symptoms. Denies: Shortness of Breath, Cough, Sputum, Wheezing Cardiovascular: Reports: No Symptoms. Denies: Chest Pain, Palpitations Gastrointestinal: Reports: No Symptoms. Denies: Abdominal Pain, Constipation, Diarrhea, Nausea, Vomiting Genitourinary: Reports: No Symptoms. Denies: Pain Musculoskeletal: Reports: Leg Pain Skin: Reports: No Symptoms. Denies: Cyanosis Neurological: Reports: No Symptoms. Denies: Confusion Psychiatric: Reports: No Symptoms - Patient Data Vitals - Most Recent: Last Vital Signs Temp 97.9 F 06/02/19 04:19 Pulse 88 06/02/19 04:19 Resp 16 06/02/19 04:19 BP 134/79 06/02/19 04:19 Pulse Ox 94 L 06/02/19 05:57 Weight - Most Recent: 236 lb 3.2 oz I&O - Last 24 Hours: Intake & Output 06/01/19 06/02/19 06/02/19 22:59 06:59 14:59 Intake Total 1225 850 Output Total 850 Balance 1225 0 Lab Results Last 24 Hours: Laboratory Results - last 24 hr 06/02/19 06/02/19 Range/Units 05:30 05:30 WBC 13.58 H (4.23-9.07) K/mm3 RBC 3.93 L (4.63-6.08) M/mm3 Hgb 11.7 L (13.7-17.5) gm/dl Hct 35.5 L (40.1-51.0) % MCV 90.3 (79.0-92.2) fl MCH 29.8 (25.7-32.2) pg MCHC 33.0 (32.2-35.5) g/dl RDW Std Deviation 47.6 H (35.1-43.9) fL Plt Count 196 (163-337) K/mm3 MPV 8.9 L (9.4-12.3) fl Sodium 135 L (136-145) mEq/L Potassium 4.3 (3.5-5.1) mEq/L Chloride 98 (98-107) mEq/L Carbon Dioxide 24 (21-32) mEq/L Anion Gap 17.3 H (5-15) BUN 28 H (7-18) mg/dL Creatinine 1.5 H (0.7-1.3) mg/dL Est Cr Clr Drug Dosing 44.51 mL/min Estimated GFR (MDRD) 46 (>60) mL/min BUN/Creatinine Ratio 18.7 H (14-18) Glucose 156 H (83-115) mg/dL Calcium 8.7 (8.5-10.1) mg/dL Total Bilirubin 0.3 (0.2-1.0) mg/dL AST 22 (15-37) U/L ALT 14 L (16-63) U/L Alkaline Phosphatase 99 (46-116) U/L Total Protein 6.9 (6.4-8.2) g/dl Albumin 3.4 (3.4-5.0) g/dl Globulin 3.5 gm/dL Albumin/Globulin Ratio 1.0 (1-2) Med Orders - Current: Current Medications Allopurinol (Zyloprim) 300 mg PO DAILY [facility] Apixaban (Eliquis) 5 mg PO BID [facility] Ascorbic Acid (Vitamin C) 500 mg PO DAILY [facility] Bisacodyl (Dulcolax) 5 mg PO DAILY PRN PRN Reason: Constipation Cholecalciferol (Vitamin D3) 5,000 unit PO DAILY [facility] Cyclobenzaprine HCl (Flexeril) 10 mg PO BID PRN PRN Reason: Spasms Docusate Sodium (Colace) 100 mg PO BID [facility] Last Admin: 06/01/19 20:48 Dose: 100 mg Famotidine (Pepcid) 20 mg PO Q12H [facility] Last Admin: 06/01/19 20:47 Dose: 20 mg Ferrous Sulfate (Slow Release Iron) 160 mg PO DAILY [facility] Hydrochlorothiazide (Hydrochlorothiazide) 12.5 mg PO DAILY [facility] Cefazolin Sodium/Dextrose 2 gm (/ Premix) 50 mls @ 100 mls/hr IV Q8H [facility] Stop: 06/02/19 09:59 Last Admin: 06/02/19 01:10 Dose: 100 mls/hr Ketorolac Tromethamine (Toradol) 15 mg IVPUSH Q6H PRN PRN Reason: Pain Last Admin: 06/01/19 20:51 Dose: 15 mg Latanoprost (Xalatan 0.005% Ophth Soln) 0 ml EYERT BEDTIME [facility] Last Admin: 06/01/19 20:52 Dose: 1 drop Levothyroxine Sodium (Levothyroxine) 175 mcg PO ACBRK [facility] Last Admin: 06/02/19 06:11 Dose: 175 mcg Losartan Potassium (Cozaar) 50 mg PO DAILY [facility] Magnesium Hydroxide (Milk Of Magnesia) 30 ml PO BID PRN PRN Reason: Constipation Metoprolol Succinate (Toprol Xl) 100 mg PO BID [facility] Last Admin: 06/01/19 20:49 Dose: 100 mg Morphine Sulfate (Morphine) 2 mg IVPUSH Q2H PRN PRN Reason: Breakthrough Pain Naloxone HCl (Narcan) 0.1 mg IVPUSH Q5M PRN PRN Reason: Oversedation Non-Formulary Medication (Pitavastatin Calcium [Livalo]) 1 mg PO DAILY [facility] Ondansetron HCl (Zofran) 4 mg IVPUSH Q6H PRN PRN Reason: Nausea/Vomiting Oxycodone/Acetaminophen (Percocet 325-5 Mg) 1 - 2 tab PO Q4H PRN PRN Reason: Pain Last Admin: 06/02/19 06:12 Dose: 2 tab Senna (Senna) 8.6 mg PO BID PRN PRN Reason: Constipation Discontinued Medications Acetaminophen (Tylenol) 975 mg PO ONETIME [facility] Stop: 06/01/19 16:00 Last Admin: 06/01/19 09:28 Dose: 975 mg Albuterol (Proventil Neb Soln) 2.5 mg NEB ONETIME PRN PRN Reason: bronchodilation Stop: 06/01/19 14:00 Bupivacaine HCl (Sensorcaine-Mpf 0.25%) Confirm Administered Dose 30 ml .ROUTE .STK-MED ONE Stop: 06/01/19 09:38 Last Admin: 06/01/19 12:06 Dose: 30 ml Bupivacaine HCl (Sensorcaine-Mpf 0.25%) Confirm Administered Dose 10 ml .ROUTE .STK-MED ONE Stop: 06/01/19 10:02 Last Admin: 06/01/19 12:01 Dose: 4 ml Cefazolin Sodium (Ancef) Confirm Administered Dose 2 gm .ROUTE .STK-MED ONE Stop: 06/01/19 06:12 Cefazolin Sodium (Ancef) Confirm Administered Dose 2 gm .ROUTE .STK-MED ONE Stop: 06/01/19 09:38 Last Admin: 06/01/19 12:01 Dose: 2 gm Morphine Sulfate 8 mg/Epinephrine HCl 0.3 mg/Cefuroxime Sodium 750 mg/Ketorolac Tromethamine 30 mg/Sodium Chloride 27.9 ml 0 mg .XX ONETIME ONE Stop: 06/01/19 11:01 Last Admin: 06/01/19 13:50 Dose: Not Given Diphenhydramine HCl (Benadryl) 25 mg IVPUSH Q6H PRN PRN Reason: pruritis Stop: 06/01/19 14:00 Ephedrine Sulfate (Ephedrine In Ns) Confirm Administered Dose 25 mg .ROUTE .STK- MED ONE Stop: 06/01/19 10:22 Ephedrine Sulfate (Ephedrine Sulfate) 5 mg IVPUSH ASDIRECTED PRN PRN Reason: Hypotension Stop: 06/01/19 14:00 Ephedrine Sulfate (Ephedrine In Ns) Confirm Administered Dose 25 mg .ROUTE .STK- MED ONE Stop: 06/01/19 11:56 Epinephrine HCl (Adrenalin) Confirm Administered Dose 1 mg .ROUTE .STK-MED ONE Stop: 06/01/19 06:17 Fentanyl (Sublimaze) Confirm Administered Dose 100 mcg .ROUTE .STK-MED ONE Stop: 06/01/19 06:13 Fentanyl (Sublimaze) 50 mcg IVPUSH Q5M PRN PRN Reason: Pain Stop: 06/01/19 14:00 Last Admin: 06/01/19 13:10 Dose: 50 mcg Hydromorphone HCl (Dilaudid) 0.5 mg IVPUSH Q15M PRN PRN Reason: Pain (severe 7-10) Stop: 06/01/19 14:00 Lactated Ringer's (Ringers, Lactated) 1,000 mls @ 125 mls/hr IV ASDIRECTED TIFFANIE Stop: 06/01/19 23:00 Last Admin: 06/01/19 09:45 Dose: 125 mls/hr Lidocaine HCl (Xylocaine-Mpf 1%) Confirm Administered Dose 6 mls @ as directed .ROUTE .STK-MED ONE Stop: 06/01/19 06:12 Lactated Ringer's (Ringers, Lactated) Confirm Administered Dose 1,000 mls @ as directed .ROUTE .STK-MED ONE Stop: 06/01/19 06:12 Phenylephrine HCl 1 mg/ Sodium (Chloride) 10.1 mls @ 1 mls/sec IV TITRATE TIFFANIE; Protocol Stop: 06/01/19 14:00 Lactated Ringer's (Ringers, Lactated) Confirm Administered Dose 1,000 mls @ as directed .ROUTE .STK-MED ONE Stop: 06/01/19 11:25 Iodine (Iodine 2% Mild Tincture) Confirm Administered Dose 30 ml .ROUTE .ST- MED ONE Stop: 06/01/19 09:38 Last Admin: 06/01/19 11:58 Dose: 18 ml Ketamine HCl (Ketalar) Confirm Administered Dose 500 mg .ROUTE .ST-MED ONE Stop: 06/01/19 06:13 Latanoprost (Xalatan 0.005% Ophth Soln) ml EYERT BEDTIME TIFFANIE Lidocaine/Sodium Bicarbonate (Buffered Lidocaine 1% In Ns 8.4%) 0.25 ml IDERM ONETIME PRN PRN Reason: Prior to IV Start Stop: 06/01/19 18:00 Last Admin: 06/01/19 09:45 Dose: 0.25 ml Midazolam HCl (Versed 1 Mg/Ml) Confirm Administered Dose 2 mg .ROUTE .ST-MED ONE Stop: 06/01/19 06:13 Midazolam HCl (Versed 1 Mg/Ml) Confirm Administered Dose 2 mg .ROUTE .STK-MED ONE Stop: 06/01/19 11:38 Ondansetron HCl (Zofran) Confirm Administered Dose 4 mg .ROUTE .STK-MED ONE Stop: 06/01/19 06:12 Ondansetron HCl (Zofran) 4 mg IVPUSH ONETIME PRN PRN Reason: Nausea/Vomiting Stop: 06/01/19 14:00 Oxycodone HCl (Oxycontin) 10 mg PO ONETIME TIFF[facility]IE Stop: 06/01/19 18:00 Last Admin: 06/01/19 09:28 Dose: 10 mg Phenylephrine HCl (Phenylephrine In Ns 100 Mcg/Ml) Confirm Administered Dose 1 mg .ROUTE .STK-MED ONE Stop: 06/01/19 06:12 Phenylephrine HCl (Phenylephrine In Ns 100 Mcg/Ml) Confirm Administered Dose 1 mg .ROUTE .STK-MED ONE Stop: 06/01/19 11:55 Pregabalin (Lyrica) 50 mg PO ONETIME TIFFANIE Stop: 06/01/19 16:00 Last Admin: 06/01/19 09:28 Dose: 50 mg Propofol (Diprivan 20 Ml) Confirm Administered Dose 400 mg .ROUTE .STK-MED ONE Stop: 06/01/19 06:12 Ropivacaine (Naropin 0.5%) Confirm Administered Dose 30 ml .ROUTE .STK-MED ONE Stop: 06/01/19 06:17 Sodium Chloride (Saline Flush) 10 ml FLUSH ASDIRECTED PRN PRN Reason: Keep Vein Open Stop: 06/01/19 18:00 Tranexamic Acid (Cyklokapron) Confirm Administered Dose 1,000 mg .ROUTE .STK- MED ONE Stop: 06/01/19 09:38 Last Admin: 06/01/19 12:15 Dose: 1,000 mg Triamcinolone Acetonide (Kenalog-40) Confirm Administered Dose 80 mg .ROUTE .STK -MED ONE Stop: 06/01/19 10:02 Last Admin: 06/01/19 12:01 Dose: 80 mg Vancomycin HCl (Vancomycin) Confirm Administered Dose 1 gm .ROUTE .STK-MED ONE Stop: 06/01/19 09:38 Last Admin: 06/01/19 12:08 Dose: 1 gm - Exam Quality Assessment: DVT Prophylaxis General: Alert, Oriented, Cooperative, No Acute Distress HEENT: Pupils Equal, Pupils Reactive, EOMI, Mucous Membr. Moist/[place] Neck: Supple, Trachea Midline Lungs: Clear to Auscultation, Normal Respiratory Effort Cardiovascular: Regular Rate, Regular Rhythm GI/Abdominal Exam: Normal Bowel Sounds, Soft, Non-Tender, No Distention, No Abnormal Bruit (Male) Exam: Deferred Back Exam: Normal Inspection, Full Range of Motion Extremities: No Pedal Edema, Normal Capillary Refill, Leg Pain, Limited Range of Motion, Other Peripheral Pulses: 2+: Radial (L), Radial (R), Dorsalis Pedis (L), Dorsalis Pedis (R) Skin: Warm, Dry, Intact Neurological: No New Focal Deficit Psy/Mental Status: Alert, Normal Affect, Normal Mood Consult PN Assessment/Plan POD#: 1 Procedures: Procedures AGENT NOS ASSAY W/OPTIC (09/19/17) AIRWAY INHALATION TREATMENT (06/24/17) APPLICATION LOWER LEG SPLINT (12/16/16) ASSAY OF LACTIC ACID (09/19/17) ASSAY OF LIPASE (09/19/17) ASSAY OF MAGNESIUM (10/07/17) ASSAY OF TROPONIN QUANT (12/05/18) ASSAY THYROID STIM HORMONE (09/19/17) BLOOD CULTURE FOR BACTERIA (09/19/17) BLOOD GASES ANY COMBINATION (09/19/17) BLOOD TYPING SEROLOGIC ABO (04/23/16) BLOOD TYPING SEROLOGIC RH(D) (04/23/16) C-REACTIVE PROTEIN (09/26/17) CARPAL TUNNEL SURGERY (09/15/18) CHEST X-RAY 1 VIEW FRONTAL (04/28/16) CHEST X-RAY 2VW FRONTAL&LATL (06/24/17) CHYLMD PNEUM DNA AMP PROBE (09/19/17) COMPLETE CBC W/AUTO DIFF WBC (12/05/18) COMPREHEN METABOLIC PANEL (12/05/18) CT ABD & PELV W/CONTRAST (04/28/16) CT ANGIOGRAPHY CHEST (09/19/17) DETECT AGENT NOS DNA AMP (09/19/17) DRAIN/INJ JOINT/BURSA W/O US (08/31/15) ECG MONIT/REPRT UP TO 48 HRS (09/23/17) ECG MONIT/REPRT UP TO 48 HRS (09/23/17) ECHO EXAM OF ABDOMEN (04/28/16) ELECTROCARDIOGRAM TRACING (12/05/18) EMERGENCY DEPT VISIT (12/05/18) EMERGENCY DEPT VISIT (06/24/17) EMERGENCY DEPT VISIT (12/16/16) EMERGENCY DEPT VISIT (04/28/16) EMERGENCY DEPT VISIT (10/25/15) FIBRIN DEGRADATION QUANT (09/19/17) GAIT TRAINING THERAPY (04/28/16) GLYCOSYLATED HEMOGLOBIN TEST (09/19/17) HYDRATE IV INFUSION ADD-ON (10/07/17) INFLUENZA ASSAY W/OPTIC (06/24/17) INTMD RPR S/A/T/EXT 2.6-7.5 (10/25/15) M.PNEUMON DNA AMP PROBE (09/19/17) MANUAL THERAPY 1/> REGIONS (08/20/18) MASSAGE THERAPY (05/30/17) MEASURE BLOOD OXYGEN LEVEL (04/23/16) METABOLIC PANEL TOTAL CA (09/19/17) MR-STAPH DNA AMP PROBE (09/15/18) MRI LUMBAR SPINE W/O DYE (05/14/18) MRI NECK SPINE W/O DYE (05/15/18) MYCOPLASMA ANTIBODY (09/19/17) NEUROMUSCULAR REEDUCATION (08/20/18) OT EVAL LOW COMPLEX 30 MIN (09/19/17) OT EVALUATION (04/28/16) PROTHROMBIN TIME (10/07/17) PT EVAL LOW COMPLEX 20 MIN (07/29/18) PT EVAL MOD COMPLEX 30 MIN (05/30/17) PT EVALUATION (05/28/16) RBC ANTIBODY SCREEN (04/23/16) RESP VIRUS 12-25 TARGETS (09/19/17) ROUTINE VENIPUNCTURE (12/05/18) SELF CARE MNGMENT TRAINING (04/28/16) THER/PROPH/DIAG INJ IV PUSH (09/26/17) THER/PROPH/DIAG IV INF ADDON (09/30/17) THER/PROPH/DIAG IV INF INIT (10/07/17) THERAPEUTIC ACTIVITIES (04/28/16) THERAPEUTIC EXERCISES (09/02/18) THROMBOPLASTIN TIME PARTIAL (09/19/17) TTE W/DOPPLER COMPLETE (09/19/17) TX/PRO/DX INJ NEW DRUG ADDON (10/07/17) TX/PRO/DX INJ SAME DRUG TELETYPE CLERK (09/30/17) URINALYSIS AUTO W/SCOPE (09/19/17) WITHDRAWAL OF ARTERIAL BLOOD (09/19/17) X-RAY EXAM CHEST 1 VIEW (10/07/17) X-RAY EXAM CHEST 2 VIEWS (09/19/17) X-RAY EXAM HIP UNI 1 VIEW (04/23/16) X-RAY EXAM OF ABDOMEN (04/28/16) X-RAY EXAM OF ANKLE (12/16/16) X-RAY EXAM OF HAND (10/25/15) X-RAY EXAM OF SKULL (05/14/18) X-RAY EXAM OF SMALL BOWEL (04/28/16) (1) S/P total knee arthroplasty SNOMED Code(s): 7268394729313, 937612283, 1740934649503 Code(s): Z96.659 - PRESENCE OF UNSPECIFIED ARTIFICIAL KNEE JOINT Priority: High Current Visit: Yes Qualifiers: Laterality: left Qualified Code(s): Z96.652 - Presence of left artificial knee joint (2) Osteoarthritis SNOMED Code(s): 071121036 Code(s): M19.90 - UNSPECIFIED OSTEOARTHRITIS, UNSPECIFIED SITE Priority: High Current Visit: Yes Qualifiers: Osteoarthritis location: knee Osteoarthritis type: primary Laterality: left Qualified Code(s): M17.12 - Unilateral primary osteoarthritis, left knee (3) Atrial fibrillation SNOMED Code(s): 44236606 Code(s): I48.91 - UNSPECIFIED ATRIAL FIBRILLATION Priority: Medium Current Visit: Yes Qualifiers: Atrial fibrillation type: paroxysmal Qualified Code(s): I48.0 - Paroxysmal atrial fibrillation (4) History of gout SNOMED Code(s): 569238369 Code(s): Z87.39 - PERSONAL HISTORY OF DISEASES OF THE MS SYS AND CONN TISS Priority: Medium Current Visit: No (5) History of nephrolithiasis SNOMED Code(s): 434798566 Code(s): Z87.442 - PERSONAL HISTORY OF URINARY CALCULI Priority: Medium Current Visit: No (6) HTN (hypertension) SNOMED Code(s): 12161380 Code(s): I10 - ESSENTIAL (PRIMARY) HYPERTENSION Priority: Medium Current Visit: No Qualifiers: Hypertension type: essential hypertension Qualified Code(s): I10 - Essential (primary) hypertension (7) Hyperlipidemia SNOMED Code(s): 67758666 Code(s): E78.5 - HYPERLIPIDEMIA, UNSPECIFIED Priority: Medium Current Visit: No Qualifiers: Hyperlipidemia type: unspecified Qualified Code(s): E78.5 - Hyperlipidemia , unspecified (8) Hypothyroidism SNOMED Code(s): 07478699 Code(s): E03.9 - HYPOTHYROIDISM, UNSPECIFIED Priority: Medium Current Visit: No Qualifiers: Hypothyroidism type: unspecified Qualified Code(s): E03.9 - Hypothyroidism , unspecified (9) RUTHY on CPAP SNOMED Code(s): 13719800 Code(s): G47.33 - OBSTRUCTIVE SLEEP APNEA (ADULT) (PEDIATRIC) Priority: Medium Current Visit: No Problem List Initiated/Reviewed/Updated: Yes My Orders Last 24 Hours: My Active Orders 06/01/19 21:00 Latanoprost [Xalatan 0.005% Ophth Soln] 0 ml EYERT BEDTIME Metoprolol Succinate [Toprol XL] 100 mg PO BID 06/02/19 06:00 Levothyroxine 175 mcg PO ACBRK 06/02/19 09:00 Allopurinol [Zyloprim] 300 mg PO DAILY Apixaban [Eliquis] 5 mg PO BID Ascorbic Acid [Vitamin C] 500 mg PO DAILY Cholecalciferol (Vitamin D3) [Vitamin D3] 5,000 unit PO DAILY Ferrous Sulfate [Slow Release Iron] 160 mg PO DAILY Losartan [Cozaar] 50 mg PO DAILY Pitavastatin Calcium [Livalo] 1 mg PO DAILY hydroCHLOROthiazide 12.5 mg PO DAILY Plan: I/P: Acute: S/P left total knee arthroplasty - post-operative day 1 -DVT prophylaxis and pain management per primary care team -PT/OT -IS/RT -Monitor oxygen saturation -Titrate oxygen as needed -Home medications reviewed -Vital signs stable -Monitor labs -Pre-operative Hgb was 13.8; Now 11.7 -Pre-operative GFR was 65; Now 46 -Pre-operative creatinine was 1.11; Now 1.5 -Pre-operative BUN was 19.8; Now 28 -Pre-operative A1C was 5.8% -Pre-operative CXR showed left basilar atelectasis -Pre-operative 12-lead EKG showed Sinus rhythm at71 BPM with a 1st degree HB. Osteoarthritis of left knee -Pain management per primary care team Chronic: Nephrolith HTN Hypothyroidism HLD Paroxysmal A-fib on Eliquis Abnormal glucose RUTHY on CPAP Gout Chronic lower back pain Meckel's Diverticulum Thrombocytopenia Plan: Telemetry CM for discharge planning GI prophylaxis Home medications as indicated Other orders as listed above Routine AM labs He is a full code. His PCP is Dr. Retana Overall from a hospitalist standpoint [place] is doing well. He has been up ambulating and working with therapies. Labs and vital signs have remained grossly stable with the exception of a decrease in GFR. A 500mL NS bolus was given with good response. Urine output has remained stable. He is off of oxygen and has voided. He has been utilizing his IS. He should follow-up with his PCP for a BNP on 06/05/19 and follow-up in 5-7 days of discharge, sooner if needed. We discussed oral hydration and continued PO fluid intake. He is cleared for discharge pending primary team and PT/OT agreement. Thank you for allowing us to participate in the care of this patient!!
--- NOTE | 2019-06-02 08:22 | PCM.SURGPN ---
- General Info Date of Service: 06/02/19 POD#: 1 Functional Status: Reports: Pain Controlled, Tolerating Diet, Ambulating, Urinating, Incentive Spirometry, Other (The pt states he is doing well and he walked "a lot" with nursing staff.) - Patient Data Vitals - Most Recent: Last Vital Signs Temp 97.9 F 06/02/19 04:19 Pulse 88 06/02/19 04:19 Resp 16 06/02/19 04:19 BP 134/79 06/02/19 04:19 Pulse Ox 94 L 06/02/19 05:57 Weight - Most Recent: 236 lb 3.2 oz I&O - Last 24 Hours: Intake & Output 06/01/19 06/02/19 06/02/19 22:59 06:59 14:59 Intake Total 1225 850 Output Total 850 Balance 1225 0 Lab Results Last 24 Hrs: Laboratory Results - last 24 hr 06/02/19 06/02/19 Range/Units 05:30 05:30 WBC 13.58 H (4.23-9.07) K/mm3 RBC 3.93 L (4.63-6.08) M/mm3 Hgb 11.7 L (13.7-17.5) gm/dl Hct 35.5 L (40.1-51.0) % MCV 90.3 (79.0-92.2) fl MCH 29.8 (25.7-32.2) pg MCHC 33.0 (32.2-35.5) g/dl RDW Std Deviation 47.6 H (35.1-43.9) fL Plt Count 196 (163-337) K/mm3 MPV 8.9 L (9.4-12.3) fl Sodium 135 L (136-145) mEq/L Potassium 4.3 (3.5-5.1) mEq/L Chloride 98 (98-107) mEq/L Carbon Dioxide 24 (21-32) mEq/L Anion Gap 17.3 H (5-15) BUN 28 H (7-18) mg/dL Creatinine 1.5 H (0.7-1.3) mg/dL Est Cr Clr Drug Dosing 44.51 mL/min Estimated GFR (MDRD) 46 (>60) mL/min BUN/Creatinine Ratio 18.7 H (14-18) Glucose 156 H (83-115) mg/dL Calcium 8.7 (8.5-10.1) mg/dL Total Bilirubin 0.3 (0.2-1.0) mg/dL AST 22 (15-37) U/L ALT 14 L (16-63) U/L Alkaline Phosphatase 99 (46-116) U/L Total Protein 6.9 (6.4-8.2) g/dl Albumin 3.4 (3.4-5.0) g/dl Globulin 3.5 gm/dL Albumin/Globulin Ratio 1.0 (1-2) Med Orders - Current: Current Medications Allopurinol (Zyloprim) 300 mg PO DAILY [facility] Apixaban (Eliquis) 5 mg PO BID [facility] Ascorbic Acid (Vitamin C) 500 mg PO DAILY [facility] Bisacodyl (Dulcolax) 5 mg PO DAILY PRN PRN Reason: Constipation Cholecalciferol (Vitamin D3) 5,000 unit PO DAILY [facility] Cyclobenzaprine HCl (Flexeril) 10 mg PO BID PRN PRN Reason: Spasms Docusate Sodium (Colace) 100 mg PO BID [facility] Last Admin: 06/01/19 20:48 Dose: 100 mg Famotidine (Pepcid) 20 mg PO Q12H [facility] Last Admin: 06/01/19 20:47 Dose: 20 mg Ferrous Sulfate (Slow Release Iron) 160 mg PO DAILY [facility] Cefazolin Sodium/Dextrose 2 gm (/ Premix) 50 mls @ 100 mls/hr IV Q8H [facility] Stop: 06/02/19 09:59 Last Admin: 06/02/19 01:10 Dose: 100 mls/hr Ketorolac Tromethamine (Toradol) 15 mg IVPUSH Q6H PRN PRN Reason: Pain Last Admin: 06/01/19 20:51 Dose: 15 mg Latanoprost (Xalatan 0.005% Ophth Soln) 0 ml EYERT BEDTIME [facility] Last Admin: 06/01/19 20:52 Dose: 1 drop Levothyroxine Sodium (Levothyroxine) 175 mcg PO ACBRK [facility] Last Admin: 06/02/19 06:11 Dose: 175 mcg Magnesium Hydroxide (Milk Of Magnesia) 30 ml PO BID PRN PRN Reason: Constipation Metoprolol Succinate (Toprol Xl) 100 mg PO BID [facility] Last Admin: 06/01/19 20:49 Dose: 100 mg Morphine Sulfate (Morphine) 2 mg IVPUSH Q2H PRN PRN Reason: Breakthrough Pain Naloxone HCl (Narcan) 0.1 mg IVPUSH Q5M PRN PRN Reason: Oversedation Non-Formulary Medication (Pitavastatin Calcium [Livalo]) 1 mg PO DAILY [facility] Ondansetron HCl (Zofran) 4 mg IVPUSH Q6H PRN PRN Reason: Nausea/Vomiting Oxycodone/Acetaminophen (Percocet 325-5 Mg) 1 - 2 tab PO Q4H PRN PRN Reason: Pain Last Admin: 06/02/19 06:12 Dose: 2 tab Senna (Senna) 8.6 mg PO BID PRN PRN Reason: Constipation Discontinued Medications Acetaminophen (Tylenol) 975 mg PO ONETIME [facility] Stop: 06/01/19 16:00 Last Admin: 06/01/19 09:28 Dose: 975 mg Albuterol (Proventil Neb Soln) 2.5 mg NEB ONETIME PRN PRN Reason: bronchodilation Stop: 06/01/19 14:00 Bupivacaine HCl (Sensorcaine-Mpf 0.25%) Confirm Administered Dose 30 ml .ROUTE .STK-MED ONE Stop: 06/01/19 09:38 Last Admin: 06/01/19 12:06 Dose: 30 ml Bupivacaine HCl (Sensorcaine-Mpf 0.25%) Confirm Administered Dose 10 ml .ROUTE .STK-MED ONE Stop: 06/01/19 10:02 Last Admin: 06/01/19 12:01 Dose: 4 ml Cefazolin Sodium (Ancef) Confirm Administered Dose 2 gm .ROUTE .STK-MED ONE Stop: 06/01/19 06:12 Cefazolin Sodium (Ancef) Confirm Administered Dose 2 gm .ROUTE .STK-MED ONE Stop: 06/01/19 09:38 Last Admin: 06/01/19 12:01 Dose: 2 gm Morphine Sulfate 8 mg/Epinephrine HCl 0.3 mg/Cefuroxime Sodium 750 mg/Ketorolac Tromethamine 30 mg/Sodium Chloride 27.9 ml 0 mg .XX ONETIME ONE Stop: 06/01/19 11:01 Last Admin: 06/01/19 13:50 Dose: Not Given Diphenhydramine HCl (Benadryl) 25 mg IVPUSH Q6H PRN PRN Reason: pruritis Stop: 06/01/19 14:00 Ephedrine Sulfate (Ephedrine In Ns) Confirm Administered Dose 25 mg .ROUTE .STK- MED ONE Stop: 06/01/19 10:22 Ephedrine Sulfate (Ephedrine Sulfate) 5 mg IVPUSH ASDIRECTED PRN PRN Reason: Hypotension Stop: 06/01/19 14:00 Ephedrine Sulfate (Ephedrine In Ns) Confirm Administered Dose 25 mg .ROUTE .STK- MED ONE Stop: 06/01/19 11:56 Epinephrine HCl (Adrenalin) Confirm Administered Dose 1 mg .ROUTE .STK-MED ONE Stop: 06/01/19 06:17 Fentanyl (Sublimaze) Confirm Administered Dose 100 mcg .ROUTE .STK-MED ONE Stop: 06/01/19 06:13 Fentanyl (Sublimaze) 50 mcg IVPUSH Q5M PRN PRN Reason: Pain Stop: 06/01/19 14:00 Last Admin: 06/01/19 13:10 Dose: 50 mcg Hydrochlorothiazide (Hydrochlorothiazide) 12.5 mg PO DAILY [facility] Hydromorphone HCl (Dilaudid) 0.5 mg IVPUSH Q15M PRN PRN Reason: Pain (severe 7-10) Stop: 06/01/19 14:00 Lactated Ringer's (Ringers, Lactated) 1,000 mls @ 125 mls/hr IV ASDIRECTED [facility] Stop: 06/01/19 23:00 Last Admin: 06/01/19 09:45 Dose: 125 mls/hr Lidocaine HCl (Xylocaine-Mpf 1%) Confirm Administered Dose 6 mls @ as directed .ROUTE .STK-MED ONE Stop: 06/01/19 06:12 Lactated Ringer's (Ringers, Lactated) Confirm Administered Dose 1,000 mls @ as directed .ROUTE .STK-MED ONE Stop: 06/01/19 06:12 Phenylephrine HCl 1 mg/ Sodium (Chloride) 10.1 mls @ 1 mls/sec IV TITRATE [facility]; Protocol Stop: 06/01/19 14:00 Lactated Ringer's (Ringers, Lactated) Confirm Administered Dose 1,000 mls @ as directed .ROUTE .STK-MED ONE Stop: 06/01/19 11:25 Iodine (Iodine 2% Mild Tincture) Confirm Administered Dose 30 ml .ROUTE .STK- MED ONE Stop: 06/01/19 09:38 Last Admin: 06/01/19 11:58 Dose: 18 ml Ketamine HCl (Ketalar) Confirm Administered Dose 500 mg .ROUTE .STK-MED ONE Stop: 06/01/19 06:13 Latanoprost (Xalatan 0.005% Ophth Soln) ml EYERT BEDTIME [facility] Lidocaine/Sodium Bicarbonate (Buffered Lidocaine 1% In Ns 8.4%) 0.25 ml IDERM ONETIME PRN PRN Reason: Prior to IV Start Stop: 06/01/19 18:00 Last Admin: 06/01/19 09:45 Dose: 0.25 ml Losartan Potassium (Cozaar) 50 mg PO DAILY [facility] Midazolam HCl (Versed 1 Mg/Ml) Confirm Administered Dose 2 mg .ROUTE .STK-MED ONE Stop: 06/01/19 06:13 Midazolam HCl (Versed 1 Mg/Ml) Confirm Administered Dose 2 mg .ROUTE .STK-MED ONE Stop: 06/01/19 11:38 Ondansetron HCl (Zofran) Confirm Administered Dose 4 mg .ROUTE .STK-MED ONE Stop: 06/01/19 06:12 Ondansetron HCl (Zofran) 4 mg IVPUSH ONETIME PRN PRN Reason: Nausea/Vomiting Stop: 06/01/19 14:00 Oxycodone HCl (Oxycontin) 10 mg PO ONETIME [facility] Stop: 06/01/19 18:00 Last Admin: 06/01/19 09:28 Dose: 10 mg Phenylephrine HCl (Phenylephrine In Ns 100 Mcg/Ml) Confirm Administered Dose 1 mg .ROUTE .STK-MED ONE Stop: 06/01/19 06:12 Phenylephrine HCl (Phenylephrine In Ns 100 Mcg/Ml) Confirm Administered Dose 1 mg .ROUTE .STK-MED ONE Stop: 06/01/19 11:55 Pregabalin (Lyrica) 50 mg PO ONETIME [facility] Stop: 06/01/19 16:00 Last Admin: 06/01/19 09:28 Dose: 50 mg Propofol (Diprivan 20 Ml) Confirm Administered Dose 400 mg .ROUTE .STK-MED ONE Stop: 06/01/19 06:12 Ropivacaine (Naropin 0.5%) Confirm Administered Dose 30 ml .ROUTE .STK-MED ONE Stop: 06/01/19 06:17 Sodium Chloride (Saline Flush) 10 ml FLUSH ASDIRECTED PRN PRN Reason: Keep Vein Open Stop: 06/01/19 18:00 Tranexamic Acid (Cyklokapron) Confirm Administered Dose 1,000 mg .ROUTE .STK- MED ONE Stop: 06/01/19 09:38 Last Admin: 06/01/19 12:15 Dose: 1,000 mg Triamcinolone Acetonide (Kenalog-40) Confirm Administered Dose 80 mg .ROUTE .STK -MED ONE Stop: 06/01/19 10:02 Last Admin: 06/01/19 12:01 Dose: 80 mg Vancomycin HCl (Vancomycin) Confirm Administered Dose 1 gm .ROUTE .STK-MED ONE Stop: 06/01/19 09:38 Last Admin: 06/01/19 12:08 Dose: 1 gm - Exam Wound/Incisions: Dressing Dry and Intact General: Alert, Cooperative, No Acute Distress Lungs: Normal Respiratory Effort Extremities: Other (NVS intact for LLE. Rickey's negative for LLE.) - Problem List Review Problem List Initiated/Reviewed/Updated: Yes - My Orders Last 24 Hours: Active Orders 24 hr Category Date Time Status Oxygen Therapy [RC] ASDIRECTED Care 06/01/19 10:54 Active Pulse Oximetry [RC] ASDIRECTED Care 06/01/19 10:54 Active RT Aerosol Therapy [RC] ASDIRECTED Care 06/01/19 10:58 Active Ready for Discharge [RC] PER UNIT ROUTINE Care 06/02/19 08:20 Ordered Regular Diet [DIET] Diet 06/01/19 Lunch Active Allopurinol [Zyloprim] Med 06/02/19 09:00 Active 300 mg PO DAILY Apixaban [Eliquis] Med 06/02/19 09:00 Active 5 mg PO BID Ascorbic Acid [Vitamin C] Med 06/02/19 09:00 Active 500 mg PO DAILY Bisacodyl [Dulcolax] Med 06/02/19 09:00 Active 5 mg PO DAILY PRN Cholecalciferol (Vitamin D3) [Vitamin D3] Med 06/02/19 09:00 Active 5,000 unit PO DAILY Cyclobenzaprine [Flexeril] Med 06/01/19 21:00 Active 10 mg PO BID PRN Docusate Sodium [Colace] Med 06/01/19 21:00 Active 100 mg PO BID Famotidine [Pepcid] Med 06/01/19 21:00 Active 20 mg PO Q12H Ferrous Sulfate [Slow Release Iron] Med 06/02/19 09:00 Active 160 mg PO DAILY Ketorolac [Toradol] Med 06/01/19 12:00 Active 15 mg IVPUSH Q6H PRN Latanoprost [Xalatan 0.005% Ophth Soln] Med 06/01/19 21:00 Active 0 ml EYERT BEDTIME Levothyroxine Med 06/02/19 06:00 Active 175 mcg PO ACBRK Magnesium Hydroxide [Milk of Magnesia] Med 06/01/19 21:00 Active 30 ml PO BID PRN Metoprolol Succinate [Toprol XL] Med 06/01/19 21:00 Active 100 mg PO BID Pitavastatin Calcium [Livalo] Med 06/02/19 09:00 Pending 1 mg PO DAILY Sennosides [Senna] Med 06/01/19 21:00 Active 8.6 mg PO BID PRN ceFAZolin [Ancef] 2 gm Med 06/01/19 17:30 Active Premix Bag 1 bag IV Q8H Medication Orders Allopurinol (Zyloprim) 300 mg PO DAILY [facility] Apixaban (Eliquis) 5 mg PO BID [facility] Ascorbic Acid (Vitamin C) 500 mg PO DAILY [facility] Bisacodyl (Dulcolax) 5 mg PO DAILY PRN PRN Reason: Constipation Cholecalciferol (Vitamin D3) 5,000 unit PO DAILY [facility] Cyclobenzaprine HCl (Flexeril) 10 mg PO BID PRN PRN Reason: Spasms Docusate Sodium (Colace) 100 mg PO BID [facility] Last Admin: 06/01/19 20:48 Dose: 100 mg Famotidine (Pepcid) 20 mg PO Q12H [facility] Last Admin: 06/01/19 20:47 Dose: 20 mg Ferrous Sulfate (Slow Release Iron) 160 mg PO DAILY [facility] Cefazolin Sodium/Dextrose 2 gm (/ Premix) 50 mls @ 100 mls/hr IV Q8H [facility] Stop: 06/02/19 09:59 Last Admin: 06/02/19 01:10 Dose: 100 mls/hr Infusion: 12/02/19 18:18 Dose: 100 mls/hr Admin: 06/01/19 17:48 Dose: 100 mls/hr Ketorolac Tromethamine (Toradol) 15 mg IVPUSH Q6H PRN PRN Reason: Pain Last Admin: 06/01/19 20:51 Dose: 15 mg Latanoprost (Xalatan 0.005% Ophth Soln) 0 ml EYERT BEDTIME [facility] Last Admin: 06/01/19 20:52 Dose: 1 drop Levothyroxine Sodium (Levothyroxine) 175 mcg PO ACBRK [facility] Last Admin: 06/02/19 06:11 Dose: 175 mcg Magnesium Hydroxide (Milk Of Magnesia) 30 ml PO BID PRN PRN Reason: Constipation Metoprolol Succinate (Toprol Xl) 100 mg PO BID [facility] Last Admin: 06/01/19 20:49 Dose: 100 mg Morphine Sulfate (Morphine) 2 mg IVPUSH Q2H PRN PRN Reason: Breakthrough Pain Naloxone HCl (Narcan) 0.1 mg IVPUSH Q5M PRN PRN Reason: Oversedation Non-Formulary Medication (Pitavastatin Calcium [Livalo]) 1 mg PO DAILY [facility] Ondansetron HCl (Zofran) 4 mg IVPUSH Q6H PRN PRN Reason: Nausea/Vomiting Oxycodone/Acetaminophen (Percocet 325-5 Mg) 1 - 2 tab PO Q4H PRN PRN Reason: Pain Last Admin: 06/02/19 06:12 Dose: 2 tab Admin: 06/01/19 17:49 Dose: 2 tab Admin: 06/01/19 13:12 Dose: 2 tab Senna (Senna) 8.6 mg PO BID PRN PRN Reason: Constipation - Assessment Assessment (Free Text/Narrative):: POD#1 - left TKA - Plan Plan (Free Text/Narrative):: 1. Resume Eliquis BID. Frequent mobility discussed. TEDs. 2. Discharge to home today. 3. Outpatient PT. 4. Further orders per Hospitalist service. The pt's case was discussed with Dr. Mart. Dr. Mart also evaluated the pt today.
[2019-06-02] MEDS ORDERED: Sodium Chloride 0.9% 500 ML IV ONE (08:27)
[2019-06-02] MEDS ORDERED: Apixaban 5 MG Tab PO SCH (09:00)
[2019-06-02] MEDS ORDERED: PITAVASTATIN CALCIUM 1 MG PO SCH (09:00)
[2019-06-02] MEDS ORDERED: Losartan 25 MG Tab PO SCH (09:00)
[2019-06-02] MEDS ORDERED: Ascorbic Acid 500 MG Tab PO SCH (09:00)
[2019-06-02] MEDS ORDERED: Hydrochlorothiazide 12.5 MG Cap PO SCH (09:00)
[2019-06-02] MEDS ORDERED: Allopurinol 300 MG Tab PO SCH (09:00)
[2019-06-02] MEDS ORDERED: Cholecalciferol (Vitamin D3) 5,000 UNIT Tab PO SCH (09:00)
[2019-06-02] MEDS ORDERED: Ferrous Sulfate 160 MG TAB.ER PO SCH (09:00)
[2019-06-02] MEDS ORDERED: Bisacodyl 5 MG Tab PO PRN (09:00)
[2019-06-02] MEDS: Metoprolol Succinate 50 MG Tab.ER PO SCH (09:26)
[2019-06-02] MEDS: Docusate Sodium 100 MG Cap PO SCH (09:27)
[2019-06-02] MEDS: Famotidine 20 MG Tab PO SCH (09:28)
--- NOTE | 2019-06-02 11:08 | PCM48HPAN ---
Post Anesthesia Note - EVALUATION WITHIN 48HRS OF ANESTHETIC Vital Signs in Normal Range: Yes Patient Participated in Evaluation: Yes Respiratory Function Stable: Yes Airway Patent: Yes Cardiovascular Function Stable: Yes Hydration Status Stable: Yes Pain Control Satisfactory: Yes Nausea and Vomiting Control Satisfactory: Yes Mental Status Recovered: Yes Vital Signs: Last Vital Signs Temp 36.6 C 06/02/19 04:19 Pulse 90 06/02/19 09:26 Resp 16 06/02/19 04:19 BP 124/61 06/02/19 09:26 Pulse Ox 92 L 06/02/19 08:55
[2019-06-02 20:47] VITALS: BP 131/60; PULSE 88
--- NOTE | 2019-06-04 15:52 | PCM.DCSUM1 ---
Discharge Summary - Hospital Course Brief History: Dakotah is a 74 yo male who underwent left TKA with Dr. Mart on 06-01-2019. The procedure was completed under spinal anesthesia with sedation and a post-operative adductor canal block was placed. The pt tolerated the procedure well and was admitted to the Medical-Surgical Unit. Medical management was provided by the Hospitalist service. The pt's Hospital course was uneventful. The pt's Hgb on POD#1 was 11.7. On POD#1, the pt resumed use of Eliquis BID. SCDs and TEDs were also ordered. A Mepilex dressing was placed at the incision site at the time of surgery and remained clean and dry. The pt participated in P.T. and O.T. and progressed well. The pt was allowed to WBAT. On POD#1, the pt was deemed appropriate to discharge to home with his . - Discharge Data Discharge Date: 06/02/19 Discharge Disposition: Home, Self-Care 01 Condition: Good - Referral to Home Health Primary Care Physician: Jarrod Retana MD - Patient Summary/Data Consults: Consultations 06/01/19 06:59 OT Evaluation and Treatment [CONS] Routine PT Evaluation and Treatment [CONS] Routine 06/01/19 07:00 Consult to Physician [CONS] Routine - Patient Instructions Diet: Usual Diet as Tolerated Activity: Apply Ice, As Tolerated, Elevate Extremity, Full Weight Bearing Driving: Do Not Drive Showering/Bathing: May Shower Wound/Incision Care: Keep Operative Site/Wound Site Clean and Dry, Do NOT Change Dressing Notify Provider of: Fever, Increased Pain, Swelling and Redness, Drainage, Nausea and/or Vomiting Other/Special Instructions: Please get up and moving around EVERY HOUR while awake. This helps to prevent blood clots. Please use your walker and have help with mobility as needed. Take a short walk in your home every hour while awake. Please take the Eliquis twice daily as directed. At home, please complete the exercises that you learned during the Hospital stay. Schedule for physical therapy. Use the pain medication as needed. The medication may cause drowsiness and constipation. Contact your primary care provider for instructions if you are constipated. You may use a stool softener like docusate sodium or Colace 100mg twice daily and/or a laxative like Miralax daily for constipation. Increase your water and fiber intake while you are using the pain medication. Discontinue use of the pain medication as soon as able. Please do not use other medications that may cause drowsiness (other pain medications, anxiety pills, cold medications, sleeping pills, etc) while using the prescription pain medication. Do not use alcohol while using the pain medication. You may use acetaminophen or Tylenol for pain management, however, please ensure you are not using over 4000 mg or 4 grams of acetaminophen per day from all sources. Your pain medication has 325mg of acetaminophen per tablet. At this time, please do not use ibuprofen (Motrin, Advil) or naproxen (Aleve) for pain management as you are using the Eliquis. Wear the KOURTNEY hose during the day and you may remove these at night. Elevate the limb to decrease swelling. Place ice to the area often. Place a towel between your skin and the blue pad. Use the incentive spirometer often. Take deep breaths throughout the day. Please keep the dressing in place until follow -up. Notify the Clinic if the dressing becomes saturated. Increase your protein intake while you are healing. Please closely monitor your blood sugars and notify your primary care provider with abnormal values. Elevated blood sugars increases the risk of infection. Please follow-up with your primary care provider for follow-up after surgery. Call the Clinic with questions or concerns - [phone]. Lab draw (BMP) ordered for 06/05/19 with results to primary care provider - Dr. Retana. Recommend follow-up with primary care provider within 5-7 days of discharge regarding kidney function. - Discharge Plan *PRESCRIPTION DRUG MONITORING PROGRAM REVIEWED*: No *COPY OF PRESCRIPTION DRUG MONITORING REPORT IN PATIENT FAISAL: No Prescriptions/Med Rec: Acetaminophen/oxyCODONE [Percocet 325-5 MG] 1 - 2 tab PO Q4H PRN #60 tablet PRN Reason: Pain Cyclobenzaprine [Flexeril] 10 mg PO BID PRN #20 tablet PRN Reason: Spasms Home Medications: Home Meds Allopurinol [Zyloprim] 300 mg PO DAILY 06/24/17 [History] Ascorbate Calcium [Vitamin C] 500 mg PO DAILY 06/24/17 [History] Cholecalciferol (Vitamin D3) [Vitamin D] 5,000 unit PO DAILY 06/24/17 [History] Levothyroxine 175 mcg PO ACBRK 06/24/17 [History] Losartan Potassium 50 mg PO DAILY 06/24/17 [History] hydroCHLOROthiazide [Hydrochlorothiazide] 12.5 mg PO DAILY 06/24/17 [History] Ferrous Sulfate [Slow Fe] 140 mg PO DAILY 09/19/17 [History] Metoprolol Succinate [Toprol XL] 100 mg PO BID 10/07/17 [History] Apixaban [Eliquis] 5 mg PO BID 09/15/18 [History] Pitavastatin Calcium [Livalo] 1 mg PO DAILY 12/05/18 [History] Latanoprost 1 drop EYERT BEDTIME 05/27/19 [History] Acetaminophen/oxyCODONE [Percocet 325-5 MG] 1 - 2 tab PO Q4H PRN #60 tablet 09/16 [Rx] Bisacodyl [Dulcolax] 5 mg PO DAILY PRN tablet 06/02/19 [Rx] Cyclobenzaprine [Flexeril] 10 mg PO BID PRN #20 tablet 06/02/19 [Rx] Docusate Sodium [Colace] 100 mg PO BID cap 06/02/19 [Rx] Famotidine [Pepcid] 20 mg PO Q12H tablet 06/02/19 [Rx] Sennosides [Senna] 8.6 mg PO BID PRN tablet 06/02/19 [Rx] Patient Handouts: Total Knee Replacement, [id number], Apixaban oral tablets Referrals: Brandee Whitfield PA-C [Physician [facility]] - (06/09 at 10am 06/16 at 10:15am 07/10 at 10am ) - Discharge Summary/Plan Comment DC Time >30 min.: No - Patient Data Vitals - Most Recent: Last Vital Signs Temp 97.5 F 06/02/19 12:41 Pulse 88 06/02/19 12:41 Resp 16 06/02/19 12:41 BP 131/60 06/02/19 12:41 Pulse Ox 94 L 06/02/19 12:41 Weight - Most Recent: 236 lb 3.2 oz Med Orders - Current: Current Medications Discontinued Medications Acetaminophen (Tylenol) 975 mg PO ONETIME TIFFANIE Stop: 06/01/19 16:00 Last Admin: 06/01/19 09:28 Dose: 975 mg Albuterol (Proventil Neb Soln) 2.5 mg NEB ONETIME PRN PRN Reason: bronchodilation Stop: 06/01/19 14:00 Allopurinol (Zyloprim) 300 mg PO DAILY [facility] Last Admin: 06/02/19 09:28 Dose: 300 mg Apixaban (Eliquis) 5 mg PO BID [facility] Last Admin: 06/02/19 09:28 Dose: 5 mg Ascorbic Acid (Vitamin C) 500 mg PO DAILY [facility] Last Admin: 06/02/19 09:28 Dose: 500 mg Bisacodyl (Dulcolax) 5 mg PO DAILY PRN PRN Reason: Constipation Bupivacaine HCl (Sensorcaine-Mpf 0.25%) Confirm Administered Dose 30 ml .ROUTE .STK-MED ONE Stop: 06/01/19 09:38 Last Admin: 06/01/19 12:06 Dose: 30 ml Bupivacaine HCl (Sensorcaine-Mpf 0.25%) Confirm Administered Dose 10 ml .ROUTE .STK-MED ONE Stop: 06/01/19 10:02 Last Admin: 06/01/19 12:01 Dose: 4 ml Cefazolin Sodium (Ancef) Confirm Administered Dose 2 gm .ROUTE .STK-MED ONE Stop: 06/01/19 06:12 Cefazolin Sodium (Ancef) Confirm Administered Dose 2 gm .ROUTE .STK-MED ONE Stop: 06/01/19 09:38 Last Admin: 06/01/19 12:01 Dose: 2 gm Cholecalciferol (Vitamin D3) 5,000 unit PO DAILY [facility] Last Admin: 06/02/19 09:27 Dose: 5,000 unit Morphine Sulfate 8 mg/Epinephrine HCl 0.3 mg/Cefuroxime Sodium 750 mg/Ketorolac Tromethamine 30 mg/Sodium Chloride 27.9 ml 0 mg .XX ONETIME ONE Stop: 06/01/19 11:01 Last Admin: 06/01/19 13:50 Dose: Not Given Cyclobenzaprine HCl (Flexeril) 10 mg PO BID PRN PRN Reason: Spasms Diphenhydramine HCl (Benadryl) 25 mg IVPUSH Q6H PRN PRN Reason: pruritis Stop: 06/01/19 14:00 Docusate Sodium (Colace) 100 mg PO BID [facility] Last Admin: 06/02/19 09:27 Dose: 100 mg Ephedrine Sulfate (Ephedrine In Ns) Confirm Administered Dose 25 mg .ROUTE .STK- MED ONE Stop: 06/01/19 10:22 Ephedrine Sulfate (Ephedrine Sulfate) 5 mg IVPUSH ASDIRECTED PRN PRN Reason: Hypotension Stop: 06/01/19 14:00 Ephedrine Sulfate (Ephedrine In Ns) Confirm Administered Dose 25 mg .ROUTE .STK- MED ONE Stop: 06/01/19 11:56 Epinephrine HCl (Adrenalin) Confirm Administered Dose 1 mg .ROUTE .STK-MED ONE Stop: 06/01/19 06:17 Famotidine (Pepcid) 20 mg PO Q12H [facility] Last Admin: 06/02/19 09:28 Dose: 20 mg Fentanyl (Sublimaze) Confirm Administered Dose 100 mcg .ROUTE .STK-MED ONE Stop: 06/01/19 06:13 Fentanyl (Sublimaze) 50 mcg IVPUSH Q5M PRN PRN Reason: Pain Stop: 06/01/19 14:00 Last Admin: 06/01/19 13:10 Dose: 50 mcg Ferrous Sulfate (Slow Release Iron) 160 mg PO DAILY [facility] Last Admin: 06/02/19 09:27 Dose: 160 mg Hydrochlorothiazide (Hydrochlorothiazide) 12.5 mg PO DAILY [facility] Hydromorphone HCl (Dilaudid) 0.5 mg IVPUSH Q15M PRN PRN Reason: Pain (severe 7-10) Stop: 06/01/19 14:00 Lactated Ringer's (Ringers, Lactated) 1,000 mls @ 125 mls/hr IV ASDIRECTED [facility] Stop: 06/01/19 23:00 Last Admin: 06/01/19 09:45 Dose: 125 mls/hr Lidocaine HCl (Xylocaine-Mpf 1%) Confirm Administered Dose 6 mls @ as directed .ROUTE .STK-MED ONE Stop: 06/01/19 06:12 Lactated Ringer's (Ringers, Lactated) Confirm Administered Dose 1,000 mls @ as directed .ROUTE .STK-MED ONE Stop: 06/01/19 06:12 Cefazolin Sodium/Dextrose 2 gm (/ Premix) 50 mls @ 100 mls/hr IV Q8H [facility] Stop: 06/02/19 09:59 Last Admin: 06/02/19 11:19 Dose: 100 mls/hr Phenylephrine HCl 1 mg/ Sodium (Chloride) 10.1 mls @ 1 mls/sec IV TITRATE TIFFANIE; Protocol Stop: 06/01/19 14:00 Lactated Ringer's (Ringers, Lactated) Confirm Administered Dose 1,000 mls @ as directed .ROUTE .STK-MED ONE Stop: 06/01/19 11:25 Sodium Chloride (Normal Saline) 500 mls @ 999 mls/hr IV .BOLUS ONE Stop: 06/02/19 08:57 Last Admin: 06/02/19 09:19 Dose: 999 mls/hr Iodine (Iodine 2% Mild Tincture) Confirm Administered Dose 30 ml .ROUTE .STK- MED ONE Stop: 06/01/19 09:38 Last Admin: 06/01/19 11:58 Dose: 18 ml Ketamine HCl (Ketalar) Confirm Administered Dose 500 mg .ROUTE .STK-MED ONE Stop: 06/01/19 06:13 Ketorolac Tromethamine (Toradol) 15 mg IVPUSH Q6H PRN PRN Reason: Pain Last Admin: 06/01/19 20:51 Dose: 15 mg Latanoprost (Xalatan 0.005% Ophth Soln) ml EYERT BEDTIME TIFFANIE Latanoprost (Xalatan 0.005% Ophth Soln) 0 ml EYERT BEDTIME TIFFANIE Last Admin: 06/01/19 20:52 Dose: 1 drop Levothyroxine Sodium (Levothyroxine) 175 mcg PO ACBRK TIFFANIE Last Admin: 06/02/19 06:11 Dose: 175 mcg Lidocaine/Sodium Bicarbonate (Buffered Lidocaine 1% In Ns 8.4%) 0.25 ml IDERM ONETIME PRN PRN Reason: Prior to IV Start Stop: 06/01/19 18:00 Last Admin: 06/01/19 09:45 Dose: 0.25 ml Losartan Potassium (Cozaar) 50 mg PO DAILY TIFFANIE Magnesium Hydroxide (Milk Of Magnesia) 30 ml PO BID PRN PRN Reason: Constipation Metoprolol Succinate (Toprol Xl) 100 mg PO BID TIFFANIE Last Admin: 06/02/19 09:26 Dose: 100 mg Midazolam HCl (Versed 1 Mg/Ml) Confirm Administered Dose 2 mg .ROUTE .STK-MED ONE Stop: 06/01/19 06:13 Midazolam HCl (Versed 1 Mg/Ml) Confirm Administered Dose 2 mg .ROUTE .STK-MED ONE Stop: 06/01/19 11:38 Morphine Sulfate (Morphine) 2 mg IVPUSH Q2H PRN PRN Reason: Breakthrough Pain Naloxone HCl (Narcan) 0.1 mg IVPUSH Q5M PRN PRN Reason: Oversedation Non-Formulary Medication (Pitavastatin Calcium [Livalo]) 1 mg PO DAILY [facility] Ondansetron HCl (Zofran) Confirm Administered Dose 4 mg .ROUTE .STK-MED ONE Stop: 06/01/19 06:12 Ondansetron HCl (Zofran) 4 mg IVPUSH Q6H PRN PRN Reason: Nausea/Vomiting Ondansetron HCl (Zofran) 4 mg IVPUSH ONETIME PRN PRN Reason: Nausea/Vomiting Stop: 06/01/19 14:00 Oxycodone HCl (Oxycontin) 10 mg PO ONETIME [facility] Stop: 06/01/19 18:00 Last Admin: 06/01/19 09:28 Dose: 10 mg Oxycodone/Acetaminophen (Percocet 325-5 Mg) 1 - 2 tab PO Q4H PRN PRN Reason: Pain Last Admin: 06/02/19 06:12 Dose: 2 tab Phenylephrine HCl (Phenylephrine In Ns 100 Mcg/Ml) Confirm Administered Dose 1 mg .ROUTE .STK-MED ONE Stop: 06/01/19 06:12 Phenylephrine HCl (Phenylephrine In Ns 100 Mcg/Ml) Confirm Administered Dose 1 mg .ROUTE .STK-MED ONE Stop: 06/01/19 11:55 Pregabalin (Lyrica) 50 mg PO ONETIME [facility] Stop: 06/01/19 16:00 Last Admin: 06/01/19 09:28 Dose: 50 mg Propofol (Diprivan 20 Ml) Confirm Administered Dose 400 mg .ROUTE .STK-MED ONE Stop: 06/01/19 06:12 Ropivacaine (Naropin 0.5%) Confirm Administered Dose 30 ml .ROUTE .STK-MED ONE Stop: 06/01/19 06:17 Senna (Senna) 8.6 mg PO BID PRN PRN Reason: Constipation Sodium Chloride (Saline Flush) 10 ml FLUSH ASDIRECTED PRN PRN Reason: Keep Vein Open Stop: 06/01/19 18:00 Tranexamic Acid (Cyklokapron) Confirm Administered Dose 1,000 mg .ROUTE .STK- MED ONE Stop: 06/01/19 09:38 Last Admin: 06/01/19 12:15 Dose: 1,000 mg Triamcinolone Acetonide (Kenalog-40) Confirm Administered Dose 80 mg .ROUTE .STK -MED ONE Stop: 06/01/19 10:02 Last Admin: 06/01/19 12:01 Dose: 80 mg Vancomycin HCl (Vancomycin) Confirm Administered Dose 1 gm .ROUTE .STK-MED ONE Stop: 06/01/19 09:38 Last Admin: 06/01/19 12:08 Dose: 1 gm
--- NOTE | 2019-06-05 13:52 | PCM.OPNOTE ---
- General Post-Op/Procedure Note Date of Surgery/Procedure: 06/01/19 Operative Procedure(s): left total knee arthroplasty with left shoulder injection Pre Op Diagnosis: left knee osteoarthrosis and left shoulder pain Post-Op Diagnosis: Same Anesthesia Technique: Local, MAC, Spinal Primary Surgeon: Lex Mart Anesthesia Provider: Ashley Contreras Snow Plow Tractor Operator: Brandee Whitfield [employer] Tractor Operator: Vianney Archibald EBL in mLs: 5 Complications: None Condition: Good Free Text/Narrative:: 11/02 9mm 35x10
--- NOTE | 2019-06-05 14:34 | OR ---
DATE OF OPERATION: 06/01/2019 SURGEON: Lex Mart MD OPERATION PERFORMED: Left total knee arthroplasty with left shoulder corticosteroid injection. PREOPERATIVE DIAGNOSIS: Left knee osteoarthritis and left shoulder pain. POSTOPERATIVE DIAGNOSIS: Left knee osteoarthritis and left shoulder pain. ANESTHESIA: Local MAC with spinal. ANESTHESIA PROVIDER: Ashley Contreras CRNA. DEBEADER: Brandee Whitfield PA-C and Vianney Archibald LPN. ESTIMATED BLOOD LOSS: 5 mL. COMPLICATIONS: None. CONDITION: Stable. IMPLANT: 1. Vannessa size 5 cemented PS femur. 2. Revere size 5 cemented [place] tibial baseplate. 3. Revere size 5, 9 mm PS X3 polyethylene. 4. Revere size 35 x 10 mm asymmetric patella. DESCRIPTION OF PROCEDURE: The patient was identified in the preop holding area. Proper site was marked and identified by the surgeon. The patient was taken back to the operating theater. After adequate anesthesia, the patient's left lower extremity had a nonsterile tourniquet applied and it was sterilely prepped and draped in the usual sterile fashion. OR time-out was performed. The patient received 2 g IV Ancef. At this time, the left lower extremity was exsanguinated. Tourniquet was insufflated to 300 mmHg. Standard medial parapatellar incision was made. Medial parapatellar arthrotomy was created. Deep fibers of the MCL were raised and anterior fat pad was resected. At this time, attention was turned to the patella. Patella measured 24, it was resected to a 14 for a 35 x 10 mm patella. Drill holes were then drilled and found to be in adequate position. The drill was then drilled in the distal femur and the intramedullary distal femoral cutting guide was then placed. 8 mm was resected off the distal femur and was found to be an adequate resection. Sizing guide was placed. It was found to be a size 5 cemented PS femur that was shown on the implant record at the beginning of this dictation. The drill holes were drilled for the epicondylar axis using Whitesides line and epicondyles as reference. At this time, the 4-in-1 cutting block was placed. An anterior posterior and anterior and posterior chamfer cuts were then completed. Box cut was completed. Attention was turned to the tibia. The posterior medial lateral retractors were placed. The extramedullary tibial guide was placed. It was placed in the old footprint of the ACL. It was aligned with the center of the ankle and 0 degrees of slope, 9 mm was then resected off the unaffected side. There was found to be an acceptable reduction. At this time, posterior osteophytes were removed along with medial and lateral meniscus. A trial implant was placed with a correct sized tibia that was mentioned at the beginning of the dictation. A Vannessa size 5, 9 mm PS X3 polyethylene insert was then placed. The patient's knee was brought through range of motion. The patella was tracking centrally and was stable to varus and valgus stress. Alignment was found to be roughly at 0 degrees. The tibia was stamped and drilled in proper rotation. Cut surfaces were irrigated and dried. The universal tibial base plate was impacted in place. Next, the Revere size 5 cemented PS femur impacted into place and the Vannessa size 5, 9 mm PS X3 polyethylene insert was placed. The patient's knee was brought into full extension. The patella was then cemented in place at this time. One liter dilute Betadine solution was irrigated through the knee along with 3 L of pulse lavage irrigation with Ancef. Periarticular injection was then completed. The patient's knee was brought through a range of motion. Once the cement had time to set up and it was found to be stable to varus valgus stress, the patella was tracking centrally with full range of motion. At this time, a #2 barbed suture was used for closure of the medial parapatellar arthrotomy. Topical tranexamic acid was placed. 2-0 Vicryl was used subcutaneously, Prineo was used for the skin. The patient tolerated the procedure well and was sent to the PACU in stable condition. After this was completed under sterile technique, 2 mL of 40 mg Kenalog and 4 mL of 0.25% Marcaine were injected in the left shoulder. Patient tolerated all procedures well. CJ /[id number] ROSARIO
== END 2019-06-02 14:13 | disposition home or self-care (01) | DRG 470 ==
LOC: JD.MS 07:04 → JD.SDS 09:07 → UNDOADMIN 09:08 → JD.MS 09:08 → EDSTATUS 14:30 → UNDODISIN 06-02 14:13
PROVIDERS: ADMIT Orthopaedic Surgery; ATTEND Orthopaedic Surgery
PROC: 0SRD0J9 Replacement of Left Knee Joint with Synthetic Substitute, Cemented, Open Approach (ICD-10-PCS; principal; 2019-06-01)
PROC: 3E0U3BZ Introduction of Anesthetic Agent into Joints, Percutaneous Approach (ICD-10-PCS; 2019-06-01)
PROC: 3E0T3BZ Introduction of Anesthetic Agent into Peripheral Nerves and Plexi, Percutaneous Approach (ICD-10-PCS; 2019-06-01)
DX: M17.12 Unilateral primary osteoarthritis, left knee (principal); I10 Essential (primary) hypertension; E03.9 Hypothyroidism, unspecified; E78.2 Mixed hyperlipidemia; G89.18 Other acute postprocedural pain; I48.0 Paroxysmal atrial fibrillation; G47.33 Obstructive sleep apnea (adult) (pediatric); E78.6 Lipoprotein deficiency; M10.9 Gout, unspecified; M54.5 Low back pain; H54.7 Unspecified visual loss; E78.00 Pure hypercholesterolemia, unspecified; M25.512 Pain in left shoulder; M25.762 Osteophyte, left knee; E66.9 Obesity, unspecified; D69.6 Thrombocytopenia, unspecified; G89.29 Other chronic pain; Z79.01 Long term (current) use of anticoagulants; Z87.442 Personal history of urinary calculi; Z79.899 Other long term (current) drug therapy; Z79.890 Hormone replacement therapy; Z88.8 Allergy status to other drugs, medicaments and biological substances; Z96.641 Presence of right artificial hip joint; Z68.34 Body mass index [BMI] 34.0-34.9, adult
CPT/HCPCS: 01402; 36415; 64450; 73560-26-LT; 73560-LT; 80053; 85027; 87641; 94760; 94761; 97110-GP; 97116-GP; 97161-GP; 97165-GO; 97535-GO; A9270-GY; C1713; C1776; J0171; J0690; J0697; J1885; J2001; J2250; J2270; J2370; J2405; J2704; J2795; J3010; J3301; J3370; J3490; J7030; J7050; J7120

== ENCOUNTER 2020-03-28 17:48 | Inpatient (IN) | payer MEDICARE, OTHER ==
[2020-03-28] MEDS ORDERED: Ketorolac 30 MG/ML SDV IV PRN (20:52)
[2020-03-28] MEDS ORDERED: Ondansetron 4 MG/2 ML SDV IV PRN (20:52)
--- NOTE | 2020-03-28 20:52 | PCM.HP.2 ---
H&P History of Present Illness - General Date of Service: 03/28/20 Admit Problem/Dx: Admission Diagnosis/Problem Admission Diagnosis/Problem Small bowel obstruction - History of Present Illness Initial Comments - Free Text/Narative: This is a 74-year-old male with past medical history of hypertension atrial fibrillation on Eliquis who was sent for direct admit from clinic for small bowel obstruction. As per patient he started feeling sick Saturday in the morning with intractable nausea, generalized abdominal bleeding tightness. He was passing a little gas but that stopped and has not had a bowel movement si e Saturday. Does endorse having a small diarrhea bowel movement this morning Has been unable to take anything p.o. without vomiting Last medication doses were taken Saturday in the morning Once he noticed pain was located better he decided to go to [facility] to be evaluated where he was diagnosed with small bowel obstruction. Case was presented to me and decision was made to directly admit patient into the medical floor. - Related Data Allergies/Adverse Reactions: Allergies Allergy/AdvReac Type Severity Reaction Status Date / Time brimonidine [From Simbrinza] Allergy Redness Verified 03/28/20 18:11 brinzolamide [From Simbrinza] Allergy Redness Verified 03/28/20 18:11 amlodipine AdvReac Muscle Verified 03/28/20 18:11 Aches lisinopril AdvReac Muscle Verified 03/28/20 18:11 Aches olmesartan [From Benicar] AdvReac Muscle Verified 03/28/20 18:11 Aches Piddptk-Lpu-Uol Reductase AdvReac Muscle Verified 03/28/20 18:11 Inhibitor Aches Home Medications: Home Meds Allopurinol [Zyloprim] 300 mg PO DAILY 06/24/17 [History] Ascorbate Calcium [Vitamin C] 500 mg PO DAILY 06/24/17 [History] Cholecalciferol (Vitamin D3) [Vitamin D] 5,000 unit PO DAILY 06/24/17 [History] Levothyroxine 175 mcg PO ACBRK 06/24/17 [History] Losartan Potassium 50 mg PO DAILY 06/24/17 [History] hydroCHLOROthiazide [Hydrochlorothiazide] 12.5 mg PO DAILY 06/24/17 [History] Ferrous Sulfate [Slow Fe] 140 mg PO DAILY 09/19/17 [History] Metoprolol Succinate [Toprol XL] 100 mg PO BID 10/07/17 [History] Apixaban [Eliquis] 5 mg PO BID 09/15/18 [History] Pitavastatin Calcium [Livalo] 1 mg PO DAILY 12/05/18 [History] Latanoprost 1 drop EYERT BEDTIME 05/27/19 [History] Acetaminophen/oxyCODONE [Percocet 325-5 MG] 1 - 2 tab PO Q4H PRN #60 tablet 06/02/19 [Rx] Cyclobenzaprine [Flexeril] 10 mg PO BID PRN #20 tablet 06/02/19 [Rx] Docusate Sodium [Colace] 100 mg PO BID cap 06/02/19 [Rx] Famotidine [Pepcid] 20 mg PO Q12H tablet 06/02/19 [Rx] Sennosides [Senna] 8.6 mg PO BID PRN tablet 06/02/19 [Rx] bisacodyL [Dulcolax] 5 mg PO DAILY PRN tablet 06/02/19 [Rx] Past Medical History HEENT History: Reports: Impaired Vision Other HEENT History: wears glasses, impacted cerumen Cardiovascular History: Reports: Afib, High Cholesterol, Hypertension Other Cardiovascular History: tachycardia Respiratory History: Reports: Sleep Apnea Other Respiratory History: cough, wears CPAP Gastrointestinal History: Reports: Other (See Below) Other Gastrointestinal History: meckel's diverticulum Genitourinary History: Reports: Renal Calculus Other Genitourinary History: URIC ACID NEPHROLITHIASIS, LITHOTRIPSY, KIDNEY STONE 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 Musculoskeletal History: Reports: Arthritis, Gout Other Musculoskeletal History: CARPAL TUNNEL SYNDROME Neurological History: Reports: None Psychiatric History: Reports: None Endocrine/Metabolic History: Reports: Hypothyroidism, Obesity/BMI 30+ Hematologic History: Reports: Idiopathic Thrombocytopenia Other Hematologic History: thrombocytopenia Immunologic History: Reports: None Oncologic (Cancer) History: Reports: None Dermatologic History: Reports: Other (See Below) Other Dermatologic History: skin lesion to face - Infectious Disease History Infectious Disease History: Reports: Chicken Pox - Past Surgical History Head Surgeries/Procedures: Reports: None HEENT Surgical History: Reports: None Cardiovascular Surgical History: Reports: None Respiratory Surgical History: Reports: None GI Surgical History: Reports: Colonoscopy, Small Bowel, Other (See Below) Other GI Surgeries/Procedures: 2013 laparoscopic abdominal surgery, 2016 opened up Male Surgical History: Reports: Kidney Stone Extraction, Lithotripsy (ESWL) Endocrine Surgical History: Reports: None Neurological Surgical History: Reports: None Musculoskeletal Surgical History: Reports: Carpal Tunnel, Hip Replacement, Knee Replacement, Shoulder Surgery, Other (See Below) Other Musculoskeletal Surgeries/Procedures:: right hip replacement 0ct 25, 2015 Oncologic Surgical History: Reports: None Dermatological Surgical History: Reports: None Social & Family History - Family History Family Medical History: Noncontributory - Tobacco Use Smoking Status *Q: Never Smoker - Caffeine Use Caffeine Use: Reports: Coffee, Soda Other Caffeine Use: 1 cup/day - Recreational Drug Use Recreational Drug Use: No - Living Situation & Occupation Living situation: Reports: , with Spouse, with Family (Son) Occupation: Retired H&P Review of Systems - Review of Systems: Review Of Systems: See Below General: Reports: Decreased Appetite. Denies: Fever, Chills, Malaise, Weakness, Fatigue, Night Sweats, Diaphoresis, Weight Loss, Weight Gain HEENT: Denies: Post Nasal Drip, Sinus Congestion, Sore Throat, Vertigo, Visual Changes Pulmonary: Denies: Shortness of Breath, Wheezing, Pleuritic Chest Pain, Cough, Sputum, Hemoptysis Cardiovascular: Denies: Chest Pain, Palpitations, Dyspnea on Exertion, Orthopnea, PND, Edema, Lightheadedness, Syncope, Claudication Gastrointestinal: Reports: Abdominal Pain, Anorexia, Diarrhea, Decreased Appetite, Distension, Flatus, Nausea, Vomiting. Denies: Black Stool, Bloody Stool, Constipation, Difficulty Swallowing, Hematemesis, Hematochezia, Melena, Mucous in Stool Genitourinary: Denies: Dysuria, Frequency, Burning, Pain, Urgency, Incontinence, Hematuria Musculoskeletal: Denies: Neck Pain, Shoulder Pain, Arm Pain, Back Pain, Joint Pain, Joint Swelling, Muscle Pain, Muscle Stiffness Skin: Denies: Cyanosis, Jaundice, Mottled, Pallor, Diaphoresis Psychiatric: Denies: Confusion, Depression, Mood Lability, Anxiety Neurological: Denies: Dizziness, Headache, Numbness, Paresthesia Hematologic/Lymphatic: Denies: Easy Bleeding, Easy Bruising Exam - Exam Exam: See Below - Vital Signs Vital Signs: Last Vital Signs Temp 97.5 F 09/28/20 18:09 Pulse 111 H 03/28/20 18:09 Resp 18 03/28/20 18:09 BP 111/66 03/28/20 18:09 Pulse Ox 93 L 03/28/20 18:09 Weight: 101.242 kg - Exam General: Alert, Oriented, Cooperative, Mild Distress HEENT: Conjunctiva Clear, EACs Clear, EOMI, Nares Patent. No: Mucosa Moist & [place] (Dry without lesions) Neck: Supple, +2 Carotid Pulse wo Bruit. No: Lymphadenopathy Lungs: Clear to Auscultation, Normal Respiratory Effort. No: Crackles, Rales, Rhonchi, Rub, Stridor, Wheezing Cardiovascular: Regular Rate, Regular Rhythm. No: Systolic Murmur, Diastolic Murmur, Rubs, Gallop/S3, Gallop/S4 GI/Abdominal Exam: Distended, Guarding, Tender (More intense in periumbilical region), Abnormal Bowel Sounds (Decreased in intensity and frequency). No: Rigid, Rebound Back Exam: Normal Inspection. No: CVA Tenderness (L), CVA Tenderness (R), Paraspinal Tenderness Extremities: Normal Inspection, Non-Tender, No Pedal Edema, Normal Capillary Refill Peripheral Pulses: 2+: Radial (L), Radial (R) - Problem List (1) Small bowel obstruction SNOMED Code(s): 440556176 ICD Code: K56.609 - UNSP INTESTNL OBST, UNSP TO PARTIAL VERSUS COMPLETE OBST Status: Acute Current Visit: Yes (2) Atrial fibrillation with controlled ventricular rate SNOMED Code(s): 30710858 ICD Code: I48.91 - UNSPECIFIED ATRIAL FIBRILLATION Status: Acute Current Visit: Yes (3) Chronic anticoagulation SNOMED Code(s): 482287543 ICD Code: Z79.01 - JAIL (CURRENT) USE OF ANTICOAGULANTS Status: Acute Current Visit: Yes (4) Dyslipidemia SNOMED Code(s): 082405821 ICD Code: E78.5 - HYPERLIPIDEMIA, UNSPECIFIED Status: Acute Current Visit: Yes (5) Acute kidney injury SNOMED Code(s): 16490226, 22913146 ICD Code: N17.9 - ACUTE KIDNEY FAILURE, UNSPECIFIED Status: Acute Current Visit: Yes (6) Hypothyroidism SNOMED Code(s): 49449388 ICD Code: E03.9 - HYPOTHYROIDISM, UNSPECIFIED Status: Chronic Priority: Medium Current Visit: No Qualifiers: Hypothyroidism type: unspecified Qualified Code(s): E03.9 - Hypothyroidism, unspecified (7) Leukocytosis SNOMED Code(s): 529100612, 690926311 ICD Code: D72.829 - ELEVATED WHITE BLOOD CELL COUNT, UNSPECIFIED Status: Acute Current Visit: No (8) Meckels diverticulum SNOMED Code(s): 27728271 ICD Code: Q43.0 - MECKEL'S DIVERTICULUM (DISPLACED) (HYPERTROPHIC) Status: Acute Current Visit: No (9) RUTHY on CPAP SNOMED Code(s): 35176306 ICD Code: G47.33 - OBSTRUCTIVE SLEEP APNEA (ADULT) (PEDIATRIC) Status: Chronic Priority: Medium Current Visit: No (10) Volume depletion SNOMED Code(s): 842396824 ICD Code: E86.9 - VOLUME DEPLETION, UNSPECIFIED Status: Acute Current Visit: Yes (11) Intractable nausea and vomiting SNOMED Code(s): 578292003 ICD Code: R11.2 - NAUSEA WITH VOMITING, UNSPECIFIED Status: Acute Current Visit: Yes (12) Obesity, Class I, BMI 30-34.9 SNOMED Code(s): 696766294337846 ICD Code: E66.9 - OBESITY, UNSPECIFIED Status: Acute Current Visit: Yes Problem List Initiated/Reviewed/Updated: Yes Assessment/Plan Comment:: ASSESSMENT 3 days of intractable nausea and vomiting as well as abdominal pain Seen in outpatient setting where CT abdomen and labs were drawn CBC: WBC 11.2, hemoglobin 15.1, hematocrit 46.5, platelets 257 Chemistry: Glucose 117, sodium 142, potassium 4.5, chloride 99, CO2 26, BUN 42, creatinine 1.85, GFR 36, calcium 10.1 LFTs: Alk phos 107, AST and ALT 11 Total protein 8.7, albumin 4.7 CT abdomen with small bowel obstruction with transition point in the ileum in the right lower quadrant PLAN Small bowel obstruction Intractable nausea and vomiting Leukocytosis History of correction of meckels diverticulum Strict n.p.o. Start LR at 100 mL's per minute NG tube placement Intermittent suction Toradol for pain control Surgery consult Acute kidney injury secondary to volume depletion Monitor urine output Renally dose medication and avoid nephrotoxic agents Repeat labs in the morning IV fluid repletion with LR Atrial fibrillation with controlled ventricular rate on Eliquis Home management with metoprolol and Eliquis Monitor vital signs PRN diltiazem Hypertension Home management with losartan and hydrochlorothiazide PRN hydralazine Dyslipidemia Hold home Pitavastatin Hypothyroidism Hold home levothyroxine RUTHY on CPAP Ask family members to bring home CPAP Chronic constipation Home management with Dulcolax and senna as needed PROPHYLAXIS DVTcompression stockings GIIV Protonix CODE STATUS: FULL CODE DISPOSITION: Patient will be admitted to medical floor on strict n.p.o. with NG tube placement at intermittent suction as well as symptomatic treatment. SOCIAL: Lives in a farm here in [place] with his Completely independent on ADLs and IADLs Drinks about 2 drinks a week, last drink was 2 weeks ago Never smoker Never drug user PCP is Dr. Geronimo - Mortality Measure Prognosis:: Good
[2020-03-28] MEDS: Lactated Ringers 1,000 ML IV SCH (22:26)
--- NOTE | 2020-03-29 06:16 | CR ---
Chest: Portable view of the chest was obtained. Comparison: Prior chest x-ray of 10/07/17. Minimal scarring within the left base. Lungs show no acute parenchymal change. Heart size is normal. Tortuous thoracic aorta is seen. Nasogastric tube is seen. Tip lies within the proximal stomach. Side opening lies close to the gastroesophageal junction. Impression: 1. Nasogastric tube. Tip lies within the proximal stomach. For optimal position, this to tube should be advanced by another 7-8 cm. 2. Minimal scarring within the left base. 3. Nothing acute is otherwise seen. Diagnostic code #2 This report was dictated in MDT I agree with preliminary report issued by [facility] ([facility] report finalized on 03/28/20, 11:06 PM CDT), code #2
[2020-03-29] MEDS: Lactated Ringers 1,000 ML IV SCH ×3 (07:48→21:08)
--- NOTE | 2020-03-29 08:23 | PCM.PN ---
- General Info Date of Service: 03/29/20 Admission Dx/Problem (Free Text): Admission Diagnosis/Problem Admission Diagnosis/Problem Small bowel obstruction Functional Status: Reports: Pain Controlled, Ambulating, Urinating, Incentive Spirometry. Denies: Tolerating Diet (NPO), New Symptoms - Review of Systems General: Reports: No Symptoms, Weakness, Fatigue. Denies: Fever, Malaise, Chills HEENT: Reports: No Symptoms, Sore Throat (NG tube), Other (NG tube in place ). Denies: Headaches Pulmonary: Reports: No Symptoms. Denies: Shortness of Breath, Pleuritic Chest Pain, Cough, Sputum, Wheezing Cardiovascular: Reports: No Symptoms. Denies: Chest Pain, Palpitations, Dyspnea on Exertion, Edema Gastrointestinal: Reports: Abdominal Pain (RUQ), Constipation, Decreased Appetite, Flatus, Nausea. Denies: Diarrhea, Difficulty Swallowing, Hematochezia, Melena, Vomiting Genitourinary: Reports: No Symptoms. Denies: Pain Musculoskeletal: Reports: No Symptoms Skin: Reports: No Symptoms. Denies: Cyanosis Neurological: Reports: No Symptoms. Denies: Confusion, Numbness, Tingling, Difficulty Walking, Weakness, Gait Disturbance Psychiatric: Reports: No Symptoms - Patient Data Vitals - Most Recent: Last Vital Signs Temp 98.1 F 03/29/20 03:50 Pulse 96 03/29/20 03:50 Resp 16 03/29/20 03:50 BP 103/82 03/29/20 03:50 Pulse Ox 92 L 03/29/20 03:50 Weight - Most Recent: 223 lb 3.2 oz I&O - Last 24 Hours: Intake & Output 03/28/20 03/29/20 03/29/20 22:59 06:59 14:59 Intake Total 614 Output Total 950 Balance -336 Lab Results Last 24 Hours: Laboratory Results - last 24 hr 03/28/20 03/29/20 03/29/20 Range/Units 18:15 05:38 05:38 WBC 8.82 (4.23-9.07) K/mm3 RBC 4.46 L (4.63-6.08) M/mm3 Hgb 13.4 L D (13.7-17.5) gm/dl Hct 41.8 (40.1-51.0) % MCV 93.7 H D (79.0-92.2) fl MCH 30.0 (25.7-32.2) pg MCHC 32.1 L (32.2-35.5) g/dl RDW Std Deviation 51.5 H (35.1-43.9) fL Plt Count 236 (163-337) K/mm3 MPV 9.6 (9.4-12.3) fl Neut % (Auto) 62.1 (34.0-67.9) % Lymph % (Auto) 22.7 (21.8-53.1) % [place] % (Auto) 13.5 H (5.3-12.2) % Eos % (Auto) 1.2 (0.8-7.0) Baso % (Auto) 0.2 (0.1-1.2) % Neut # (Auto) 5.47 H (1.78-5.38) K/mm3 Lymph # (Auto) 2.00 (1.32-3.57) K/mm3 [place] # (Auto) 1.19 H (0.30-0.82) K/mm3 Eos # (Auto) 0.11 (0.04-0.54) K/mm3 Baso # (Auto) 0.02 (0.01-0.08) K/mm3 Sodium 139 (136-145) mEq/L Potassium 3.8 (3.5-5.1) mEq/L Chloride 100 (98-107) mEq/L Carbon Dioxide 27 (21-32) mEq/L Anion Gap 15.8 H (5-15) BUN 56 H D (7-18) mg/dL Creatinine 2.4 H (0.7-1.3) mg/dL Est Cr Clr Drug Dosing 27.82 mL/min Estimated GFR (MDRD) 27 (>60) mL/min BUN/Creatinine Ratio 23.3 H (14-18) Glucose 106 (83-115) mg/dL Calcium 9.0 (8.5-10.1) mg/dL Phosphorus 4.9 H (2.6-4.7) mg/dL Magnesium 2.3 (1.8-2.4) mg/dl SARS-CoV-2 RNA (REBECA) Negative (NEGATIVE) Med Orders - Current: Current Medications Lactated Ringer's (Ringers, Lactated) 1,000 mls @ 125 mls/hr IV ASDIRECTED [facility] Last Admin: 03/29/20 07:48 Dose: 125 mls/hr Documented by: Ketorolac Tromethamine (Toradol) 30 mg IV Q6H PRN PRN Reason: Pain (moderate 4-6) Ondansetron HCl (Zofran) 4 mg IV Q6H PRN PRN Reason: Nausea/Vomiting - Exam Quality Assessment: DVT Prophylaxis. No: Supplemental Oxygen, Urine Catheter General: Alert, Oriented, Cooperative, No Acute Distress HEENT: Pupils Equal, Pupils Reactive, Mucous Membr. Moist/[place] Neck: Supple, Trachea Midline Lungs: Clear to Auscultation, Normal Respiratory Effort Cardiovascular: Regular Rate, Regular Rhythm GI/Abdominal Exam: Distended, Tender, Abnormal Bowel Sounds (hypoactive ) (Male) Exam: Deferred Back Exam: Normal Inspection, Full Range of Motion Extremities: Normal Inspection, Normal Range of Motion, Non-Tender, No Pedal Edema, Normal Capillary Refill Skin: Warm, Dry, Intact Neurological: No New Focal Deficit Psy/Mental Status: Alert, Normal Affect, Normal Mood Sepsis Event Note - Evaluation Sepsis Screening Result: No Definite Risk - Focused Exam Vital Signs: Vital Signs Temp Pulse Resp BP Pulse Ox Pulse Ox 03/29/20 03:50 98.1 F 96 16 103/82 92 L 03/28/20 23:50 97.9 F 100 20 122/59 L 93 L 03/28/20 20:52 93 L - Problem List & Annotations (1) Acute kidney injury SNOMED Code(s): 13698238, 76111071 Code(s): N17.9 - ACUTE KIDNEY FAILURE, UNSPECIFIED Status: Acute Priority: High Current Visit: Yes (2) Atrial fibrillation with controlled ventricular rate SNOMED Code(s): 61392086 Code(s): I48.91 - UNSPECIFIED ATRIAL FIBRILLATION Status: Chronic Priority: Medium Current Visit: Yes (3) Chronic anticoagulation SNOMED Code(s): 296414333 Code(s): Z79.01 - CREATIVE ART THERAPIST (CURRENT) USE OF ANTICOAGULANTS Status: Chronic Priority: Medium Current Visit: Yes (4) Dyslipidemia SNOMED Code(s): 775723184 Code(s): E78.5 - HYPERLIPIDEMIA, UNSPECIFIED Status: Chronic Priority: Low Current Visit: No (5) Intractable nausea and vomiting SNOMED Code(s): 963398843 Code(s): R11.2 - NAUSEA WITH VOMITING, UNSPECIFIED Status: Resolved Priority: High Current Visit: Yes (6) Obesity, Class I, BMI 30-34.9 SNOMED Code(s): 150312765197658 Code(s): E66.9 - OBESITY, UNSPECIFIED Status: Chronic Priority: Low Current Visit: No (7) Small bowel obstruction SNOMED Code(s): 318433096 Code(s): K56.609 - UNSP INTESTNL OBST, UNSP TO PARTIAL VERSUS COMPLETE OBST Status: Acute Priority: High Current Visit: Yes (8) Volume depletion SNOMED Code(s): 788731356 Code(s): E86.9 - VOLUME DEPLETION, UNSPECIFIED Status: Acute Priority: High Current Visit: Yes (9) Leukocytosis SNOMED Code(s): 885391982, 608785103 Code(s): D72.829 - ELEVATED WHITE BLOOD CELL COUNT, UNSPECIFIED Status: Resolved Priority: Low Current Visit: No Qualifiers: Leukocytosis type: unspecified Qualified Code(s): D72.829 - Elevated white blood cell count, unspecified (10) Meckels diverticulum SNOMED Code(s): 97393928 Code(s): Q43.0 - MECKEL'S DIVERTICULUM (DISPLACED) (HYPERTROPHIC) Status: Chronic Priority: Medium Current Visit: No (11) Hypothyroidism SNOMED Code(s): 29290994 Code(s): E03.9 - HYPOTHYROIDISM, UNSPECIFIED Status: Chronic Priority: Medium Current Visit: No Qualifiers: Hypothyroidism type: unspecified Qualified Code(s): E03.9 - Hypothyroidism, unspecified (12) RUTHY on CPAP SNOMED Code(s): 12910402 Code(s): G47.33 - OBSTRUCTIVE SLEEP APNEA (ADULT) (PEDIATRIC) Status: Chronic Priority: Medium Current Visit: No - Problem List Review Problem List Initiated/Reviewed/Updated: Yes - My Orders Last 24 Hours: My Active Orders 03/29/20 07:27 Notify Provider Consults [RC] ASDIRECTED Consult to Physician [CONS] Routine 03/29/20 07:31 Consult to Occupational Therapy [OT Evaluation and Treatment] [CONS] Routine PT Evaluation and Treatment [CONS] Routine - Assessment Assessment:: ASSESSMENT 03/28/2020 3 days of intractable nausea and vomiting as well as abdominal pain Seen in outpatient setting where CT abdomen and labs were drawn CBC: WBC 11.2, hemoglobin 15.1, hematocrit 46.5, platelets 257 Chemistry: Glucose 117, sodium 142, potassium 4.5, chloride 99, CO2 26, BUN 42, creatinine 1.85, GFR 36, calcium 10.1 LFTs: Alk phos 107, AST and ALT 11 Total protein 8.7, albumin 4.7 CT abdomen with small bowel obstruction with transition point in the ileum in the right lower quadrant 03/29/2020 No leukocytosis Hgb down to 13.4 Creatinine worsened to 2.4 with GFR of 27 Anion gap 15.6 VSS Will increase IV fluids Atelectasis vs infiltrate on CXR - no infectious symptoms currently - monitor and add IS Cepacol lozenge and hurricane spray PRN for throat irritation Bedside glucose checks Q8Hr - adjust fluids if begin to drip Dr. Benoit, General surgeon recommends conservative management for next 48-72 hours, then re-evaluate surgical options 950mL out of NG tube so far Continues to ambulate with nursing Utilizing heparin in place of eliquis due to possibility of surgery (hx/o a-fib Is having flatus Last BM on Saturday03/25/20 - Plan Plan:: Small bowel obstruction Intractable nausea and vomiting History of correction of meckels diverticulum Strict n.p.o. IV fluids as ordered Continue NG tube Intermittent suction Surgery consult - Dr. Benoit -Monitor NG output Acute kidney injury secondary to volume depletion Monitor urine output Renally dose medication and avoid nephrotoxic agents Repeat labs in the morning IV fluid repletion with LR Atrial fibrillation with controlled ventricular rate on Eliquis Hold home metoprolol and Eliquis due to possibility of surgery Monitor vital signs PRN metoprolol -Heparin Q8 scheduled -Telemetry Hypertension Hold home losartan and hydrochlorothiazide PRN hydralazine Dyslipidemia Hold home Pitavastatin Hypothyroidism Hold home levothyroxine RUTHY on CPAP Continue home CPAP once NG tube is discontinued Chronic constipation Home management with Dulcolax and senna as needed Resolved: Leukocytosis PCP: Dr. Geronimo PROPHYLAXIS DVTCompression stockings and heparin GINot indicated CODE STATUS: FULL CODE DISPOSITION: Patient will be admitted to medical floor on strict n.p.o. with NG tube placement at intermittent suction as well as symptomatic treatment. Likely discharge in 4-5 days.
[2020-03-29] MEDS ORDERED: Metoprolol Tartrate 5 MG/5 ML SDV IVPUSH PRN (09:03)
[2020-03-29] MEDS ORDERED: Pantoprazole 40 MG Vial IVPUSH SCH (09:30)
--- NOTE | 2020-03-29 10:59 | PCM.CONS ---
H&P History of Present Illness - General Date of Service: 03/29/20 Admit Problem/Dx: Admission Diagnosis/Problem Admission Diagnosis/Problem Small bowel obstruction Source of Information: Patient History Limitations: Reports: No Limitations - History of Present Illness Initial Comments - Free Text/Narative: Patient started feeling poorly about 2 weeks ago. He would have intermittent episodes of abdominal cramps that were short lived. However, on 03/26 the pain became worse and by night of that day he could not keep anything down. He was seen at walk in clinic on 03/28 where labs were remarkable for creat of 1.6 up from normal, and CT scan revealed SBO with transition point in the RLQ. Patient has a history of prior SBR for Jessica's diverticulum a few years ago. He has never has SBO since then. Last BM was Wednesday 03/28. Patient is currently passing flatus. Onset of Symptoms: Reports: Gradual Duration of Symptoms: Reports: Getting Worse Location: Reports: Abdomen Quality: Reports: Other (crampy. colicky) Severity: Moderate Improves with: Reports: Rest Worsens with: Reports: None Context: Reports: Other (SBO) Associated Symptoms: Reports: Nausea/Vomiting - Related Data Allergies/Adverse Reactions: Allergies Allergy/AdvReac Type Severity Reaction Status Date / Time brimonidine [From Simbrinza] Allergy Redness Verified 03/28/20 18:11 brinzolamide [From Simbrinza] Allergy Redness Verified 03/28/20 18:11 amlodipine AdvReac Muscle Verified 03/28/20 18:11 Aches lisinopril AdvReac Muscle Verified 03/28/20 18:11 Aches olmesartan [From Benicar] AdvReac Muscle Verified 03/28/20 18:11 Aches [id number] Reductase AdvReac Muscle Verified 03/28/20 18:11 Inhibitor Aches Home Medications: Home Meds Allopurinol [Zyloprim] 300 mg PO DAILY 06/24/17 [History] Ascorbate Calcium [Vitamin C] 500 mg PO DAILY 06/24/17 [History] Cholecalciferol (Vitamin D3) [Vitamin D] 5,000 unit PO DAILY 06/24/17 [History] Levothyroxine 175 mcg PO ACBRK 06/24/17 [History] Losartan Potassium 50 mg PO DAILY 06/24/17 [History] hydroCHLOROthiazide [Hydrochlorothiazide] 12.5 mg PO DAILY 06/24/17 [History] Ferrous Sulfate [Slow Fe] 140 mg PO DAILY 09/19/17 [History] Metoprolol Succinate [Toprol XL] 100 mg PO BID 10/07/17 [History] Apixaban [Eliquis] 5 mg PO BID 09/15/18 [History] Latanoprost 1 drop EYERT BEDTIME 05/27/19 [History] Past Medical History HEENT History: Reports: Impaired Vision Other HEENT History: wears glasses, impacted cerumen Cardiovascular History: Reports: Afib, High Cholesterol, Hypertension Other Cardiovascular History: tachycardia Respiratory History: Reports: Sleep Apnea Other Respiratory History: cough, wears CPAP Gastrointestinal History: Reports: Other (See Below) Other Gastrointestinal History: meckel's diverticulum Genitourinary History: Reports: Renal Calculus Other Genitourinary History: URIC ACID NEPHROLITHIASIS, LITHOTRIPSY, KIDNEY S TONE HEEL GOUGER History: Reports: None Musculoskeletal History: Reports: Arthritis, Gout Other Musculoskeletal History: CARPAL TUNNEL SYNDROME Neurological History: Reports: None Psychiatric History: Reports: None Endocrine/Metabolic History: Reports: Hypothyroidism, Obesity/BMI 30+ Hematologic History: Reports: Idiopathic Thrombocytopenia Other Hematologic History: thrombocytopenia Immunologic History: Reports: None Oncologic (Cancer) History: Reports: None Dermatologic History: Reports: Other (See Below) Other Dermatologic History: skin lesion to face - Infectious Disease History Infectious Disease History: Reports: Chicken Pox - Past Surgical History Head Surgeries/Procedures: Reports: None HEENT Surgical History: Reports: None Cardiovascular Surgical History: Reports: None Respiratory Surgical History: Reports: None GI Surgical History: Reports: Colonoscopy, Small Bowel, Other (See Below) Other GI Surgeries/Procedures: 2012 laparoscopic abdominal surgery, 2016 opened up Male Surgical History: Reports: Kidney Stone Extraction, Lithotripsy ([facility]) Endocrine Surgical History: Reports: None Neurological Surgical History: Reports: None Musculoskeletal Surgical History: Reports: Carpal Tunnel, Hip Replacement, Knee Replacement, Shoulder Surgery, Other (See Below) Other Musculoskeletal Surgeries/Procedures:: right hip replacement 2015 Oncologic Surgical History: Reports: None Dermatological Surgical History: Reports: None Social & Family History - Family History Family Medical History: Noncontributory - Tobacco Use Smoking Status *Q: Never Smoker - Caffeine Use Caffeine Use: Reports: Coffee, Soda Other Caffeine Use: 1 cup/day - Recreational Drug Use Recreational Drug Use: No - Living Situation & Occupation Living situation: Reports: , with Spouse, with Family (Son) Occupation: Retired H&P Review of Systems - Review of Systems: Review Of Systems: See Below General: Reports: No Symptoms HEENT: Reports: No Symptoms Pulmonary: Reports: No Symptoms Cardiovascular: Reports: No Symptoms Gastrointestinal: Reports: Abdominal Pain Genitourinary: Reports: No Symptoms Musculoskeletal: Reports: No Symptoms Skin: Reports: No Symptoms Psychiatric: Reports: No Symptoms Neurological: Reports: No Symptoms Hematologic/Lymphatic: Reports: No Symptoms Exam - Exam Exam: See Below - Vital Signs Vital Signs: Last Vital Signs Temp 97.5 F 03/29/20 08:45 Pulse 93 03/29/20 08:45 Resp 16 03/29/20 08:45 BP 122/57 L 03/29/20 08:45 Pulse Ox 93 L 03/29/20 08:45 Weight: 101.242 kg - Exam General: Alert, Oriented, Cooperative Lungs: Clear to Auscultation, Normal Respiratory Effort Cardiovascular: Regular Rate, Regular Rhythm, Normal S1, Normal S2 GI/Abdominal Exam: Soft, Non-Tender, No Organomegaly, No Abnormal Bruit, No Mass, Distended (and tympanic) - Patient Data Lab Results Last 24 hrs: Laboratory Results - last 24 hr 03/28/20 03/29/20 03/29/20 Range/Units 18:15 05:38 05:38 WBC 8.82 (4.23-9.07) K/mm3 RBC 4.46 L (4.63-6.08) M/mm3 Hgb 13.4 L D (13.7-17.5) gm/dl Hct 41.8 (40.1-51.0) % MCV 93.7 H D (79.0-92.2) fl MCH 30.0 (25.7-32.2) pg MCHC 32.1 L (32.2-35.5) g/dl RDW Std Deviation 51.5 H (35.1-43.9) fL Plt Count 236 (163-337) K/mm3 MPV 9.6 (9.4-12.3) fl Neut % (Auto) 62.1 (34.0-67.9) % Lymph % (Auto) 22.7 (21.8-53.1) % [place] % (Auto) 13.5 H (5.3-12.2) % Eos % (Auto) 1.2 (0.8-7.0) Baso % (Auto) 0.2 (0.1-1.2) % Neut # (Auto) 5.47 H (1.78-5.38) K/mm3 Lymph # (Auto) 2.00 (1.32-3.57) K/mm3 [place] # (Auto) 1.19 H (0.30-0.82) K/mm3 Eos # (Auto) 0.11 (0.04-0.54) K/mm3 Baso # (Auto) 0.02 (0.01-0.08) K/mm3 Sodium 139 (136-145) mEq/L Potassium 3.8 (3.5-5.1) mEq/L Chloride 100 (98-107) mEq/L Carbon Dioxide 27 (21-32) mEq/L Anion Gap 15.8 H (5-15) BUN 56 H D (7-18) mg/dL Creatinine 2.4 H (0.7-1.3) mg/dL Est Cr Clr Drug Dosing 27.82 mL/min Estimated GFR (MDRD) 27 (>60) mL/min BUN/Creatinine Ratio 23.3 H (14-18) Glucose 106 (83-115) mg/dL Calcium 9.0 (8.5-10.1) mg/dL Phosphorus 4.9 H (2.6-4.7) mg/dL Magnesium 2.3 (1.8-2.4) mg/dl SARS-CoV-2 RNA (REBECA) Negative (NEGATIVE) Result Diagrams: 03/29/20 05:38 03/29/20 05:38 Sepsis Event Note - Evaluation Sepsis Screening Result: No Definite Risk - Focused Exam Vital Signs: Vital Signs Temp Pulse Resp BP Pulse Ox 03/29/20 08:45 97.5 F 93 16 122/57 L 93 L 03/29/20 03:50 98.1 F 96 16 103/82 92 L 03/28/20 23:50 97.9 F 100 20 122/59 L 93 L Consult PN Assessment/Plan Procedures: Procedures AGENT NOS ASSAY W/OPTIC (09/19/17) AIRWAY INHALATION TREATMENT (06/24/17) APPLICATION LOWER LEG SPLINT (12/16/16) ASSAY OF LACTIC ACID (09/19/17) ASSAY OF LIPASE (09/19/17) ASSAY OF MAGNESIUM (10/07/17) ASSAY OF TROPONIN QUANT (12/05/18) ASSAY THYROID STIM HORMONE (09/19/17) BLOOD CULTURE FOR BACTERIA (09/19/17) BLOOD GASES ANY COMBINATION (09/19/17) BLOOD TYPING SEROLOGIC ABO (04/23/16) BLOOD TYPING SEROLOGIC RH(D) (04/23/16) C-REACTIVE PROTEIN (09/26/17) CARPAL TUNNEL SURGERY (09/15/18) CHEST X-RAY 1 VIEW FRONTAL (04/28/16) CHEST X-RAY 2VW FRONTAL&LATL (06/24/17) CHYLMD PNEUM DNA AMP PROBE (09/19/17) COMPLETE CBC AUTOMATED (06/01/19) COMPLETE CBC W/AUTO DIFF WBC (12/05/18) COMPREHEN METABOLIC PANEL (06/01/19) CT ABD & PELV W/CONTRAST (04/28/16) CT ANGIOGRAPHY CHEST (09/19/17) DETECT AGENT NOS DNA AMP (09/19/17) DRAIN/INJ JOINT/BURSA W/O US (08/31/15) ECG MONIT/REPRT UP TO 48 HRS (09/23/17) ECG MONIT/REPRT UP TO 48 HRS (09/23/17) ECHO EXAM OF ABDOMEN (04/28/16) ELECTROCARDIOGRAM TRACING (12/05/18) EMERGENCY DEPT VISIT (12/05/18) EMERGENCY DEPT VISIT (06/24/17) EMERGENCY DEPT VISIT (12/16/16) EMERGENCY DEPT VISIT (04/28/16) EMERGENCY DEPT VISIT (10/25/15) FIBRIN DEGRADATION QUANT (09/19/17) GAIT TRAINING THERAPY (06/01/19) GLYCOSYLATED HEMOGLOBIN TEST (09/19/17) HYDRATE IV INFUSION ADD-ON (10/07/17) INFLUENZA ASSAY W/OPTIC (06/24/17) INTMD RPR S/A/T/EXT 2.6-7.5 (10/25/15) M.PNEUMON DNA AMP PROBE (09/19/17) MANUAL THERAPY 1/> REGIONS (08/14/19) MASSAGE THERAPY (05/30/17) MEASURE BLOOD OXYGEN LEVEL (06/01/19) MEASURE BLOOD OXYGEN LEVEL (06/01/19) MEASURE BLOOD OXYGEN LEVEL (04/23/16) METABOLIC PANEL TOTAL CA (09/19/17) MR-STAPH DNA AMP PROBE (06/01/19) MRI LUMBAR SPINE W/O DYE (05/14/18) MRI NECK SPINE W/O DYE (05/15/18) MYCOPLASMA ANTIBODY (09/19/17) NEUROMUSCULAR REEDUCATION (07/30/19) OT EVAL LOW COMPLEX 30 MIN (06/01/19) OT EVALUATION (04/28/16) PROTHROMBIN TIME (10/07/17) PT EVAL LOW COMPLEX 20 MIN (07/30/19) PT EVAL MOD COMPLEX 30 MIN (05/30/17) PT EVALUATION (05/28/16) RBC ANTIBODY SCREEN (04/23/16) RESP VIRUS 12-25 TARGETS (09/19/17) ROUTINE VENIPUNCTURE (06/01/19) SELF CARE MNGMENT TRAINING (06/01/19) THER/PROPH/DIAG INJ IV PUSH (09/26/17) THER/PROPH/DIAG IV INF ADDON (09/30/17) THER/PROPH/DIAG IV INF INIT (10/07/17) THERAPEUTIC ACTIVITIES (08/14/19) THERAPEUTIC EXERCISES (08/14/19) THROMBOPLASTIN TIME PARTIAL (09/19/17) TTE W/DOPPLER COMPLETE (09/19/17) TX/PRO/DX INJ NEW DRUG ADDON (10/07/17) TX/PRO/DX INJ SAME DRUG [employer] (09/30/17) URINALYSIS AUTO W/SCOPE (09/19/17) WITHDRAWAL OF ARTERIAL BLOOD (09/19/17) X-RAY EXAM CHEST 1 VIEW (10/07/17) X-RAY EXAM CHEST 2 VIEWS (09/19/17) X-RAY EXAM HIP UNI 1 VIEW (04/23/16) X-RAY EXAM OF ABDOMEN (04/28/16) X-RAY EXAM OF ANKLE (12/16/16) X-RAY EXAM OF HAND (10/25/15) X-RAY EXAM OF KNEE 1 OR 2 (06/01/19) X-RAY EXAM OF SKULL (05/14/18) X-RAY XM SM INT 1CNTRST STD (04/28/16) Problem List Initiated/Reviewed/Updated: No Plan: Patient has SBO and he has RAMÓN likely due to dehydration 2/2 SBO. - Continue NPO, NGT - COntinue IVF resuscitation - Daily CBC, Chem - COrrent electrolyte abnormalities - Encourage ambulation We will try non-operative management as above for 48-72 hours if the patient remains stable. If he does not improve, will consider surgery.
[2020-03-29] MEDS: Heparin Sodium 5,000 Units/ML Vial SUBCUT SCH ×2 (12:01→16:40)
[2020-03-29] MEDS: Benzocaine 20% Oral Spray 59.2 ML Canister MUCMEM PRN ×3 (12:02→23:44)
[2020-03-29] MEDS: Benzocaine/Cetylpyridinium/Menthol Lozenge MUCMEM PRN (12:02)
[2020-03-29] MEDS: Latanoprost 0.005% Ophth Soln 2.5 ML Bottle EYERT SCH (20:24)
[2020-03-30] MEDS: Heparin Sodium 5,000 Units/ML Vial SUBCUT SCH ×3 (00:32→16:37)
[2020-03-30] MEDS: Lactated Ringers 1,000 ML IV SCH ×4 (03:23→20:37)
[2020-03-30] MEDS: Benzocaine/Cetylpyridinium/Menthol Lozenge MUCMEM PRN (08:39)
--- NOTE | 2020-03-30 10:44 | PCM.PN ---
- General Info Date of Service: 03/30/20 Functional Status: Reports: Pain Controlled, Ambulating, Urinating, Incentive Spirometry. Denies: Tolerating Diet (NPO), New Symptoms - Review of Systems General: Reports: No Symptoms. Denies: Fever, Weakness, Fatigue, Malaise, Chills HEENT: Reports: Sore Throat. Denies: Headaches Pulmonary: Reports: No Symptoms. Denies: Shortness of Breath, Pleuritic Chest Pain, Cough, Sputum Cardiovascular: Reports: No Symptoms. Denies: Chest Pain, Palpitations Gastrointestinal: Reports: Abdominal Pain (Very minimal ), Constipation, Decreased Appetite, Flatus. Denies: Diarrhea, Hematochezia, Melena, Nausea, Vomiting Genitourinary: Reports: No Symptoms. Denies: Pain Musculoskeletal: Reports: No Symptoms Skin: Reports: No Symptoms. Denies: Cyanosis Neurological: Reports: No Symptoms. Denies: Confusion, Numbness, Tingling, Difficulty Walking, Weakness, Gait Disturbance Psychiatric: Reports: No Symptoms - Patient Data Vitals - Most Recent: Last Vital Signs Temp 97.5 F 03/30/20 08:27 Pulse 93 03/30/20 08:27 Resp 20 03/30/20 08:27 BP 150/77 H 03/30/20 08:27 Pulse Ox 92 L 03/30/20 08:27 Weight - Most Recent: 223 lb 3.2 oz I&O - Last 24 Hours: Intake & Output 03/29/20 03/30/20 03/30/20 22:59 06:59 14:59 Intake Total 2442 1000 Output Total 875 1250 Balance 1567 -250 Lab Results Last 24 Hours: Laboratory Results - last 24 hr 03/29/20 03/29/20 03/30/20 Range/Units 13:37 21:14 05:55 WBC 9.74 H (4.23-9.07) K/mm3 RBC 4.31 L (4.63-6.08) M/mm3 Hgb 12.9 L (13.7-17.5) gm/dl Hct 41.1 (40.1-51.0) % MCV 95.4 H (79.0-92.2) fl MCH 29.9 (25.7-32.2) pg MCHC 31.4 L (32.2-35.5) g/dl RDW Std Deviation 50.9 H (35.1-43.9) fL Plt Count 221 (163-337) K/mm3 MPV 9.4 (9.4-12.3) fl Neut % (Auto) 73.2 H (34.0-67.9) % Lymph % (Auto) 16.5 L (21.8-53.1) % [place] % (Auto) 9.1 (5.3-12.2) % Eos % (Auto) 0.8 (0.8-7.0) Baso % (Auto) 0.2 (0.1-1.2) % Neut # (Auto) 7.12 H (1.78-5.38) K/mm3 Lymph # (Auto) 1.61 (1.32-3.57) K/mm3 [place] # (Auto) 0.89 H (0.30-0.82) K/mm3 Eos # (Auto) 0.08 (0.04-0.54) K/mm3 Baso # (Auto) 0.02 (0.01-0.08) K/mm3 Sodium (136-145) mEq/L Potassium (3.5-5.1) mEq/L Chloride (98-107) mEq/L Carbon Dioxide (21-32) mEq/L Anion Gap (5-15) BUN (7-18) mg/dL Creatinine (0.7-1.3) mg/dL Est Cr Clr Drug Dosing mL/min Estimated GFR (MDRD) (>60) mL/min BUN/Creatinine Ratio (14-18) Glucose (83-115) mg/dL POC Glucose 102 94 (83-110) mg/dL Calcium (8.5-10.1) mg/dL Magnesium (1.8-2.4) mg/dl Total Bilirubin (0.2-1.0) mg/dL AST (15-37) U/L ALT (16-63) U/L Alkaline Phosphatase (46-116) U/L C-Reactive Protein (<1.0) mg/dL Total Protein (6.4-8.2) g/dl Albumin (3.4-5.0) g/dl Globulin gm/dL Albumin/Globulin Ratio (1-2) 03/30/20 03/30/20 Range/Units 05:55 06:50 WBC (4.23-9.07) K/mm3 RBC (4.63-6.08) M/mm3 Hgb (13.7-17.5) gm/dl Hct (40.1-51.0) % MCV (79.0-92.2) fl MCH (25.7-32.2) pg MCHC (32.2-35.5) g/dl RDW Std Deviation (35.1-43.9) fL Plt Count (163-337) K/mm3 MPV (9.4-12.3) fl Neut % (Auto) (34.0-67.9) % Lymph % (Auto) (21.8-53.1) % [place] % (Auto) (5.3-12.2) % Eos % (Auto) (0.8-7.0) Baso % (Auto) (0.1-1.2) % Neut # (Auto) (1.78-5.38) K/mm3 Lymph # (Auto) (1.32-3.57) K/mm3 [place] # (Auto) (0.30-0.82) K/mm3 Eos # (Auto) (0.04-0.54) K/mm3 Baso # (Auto) (0.01-0.08) K/mm3 Sodium 145 (136-145) mEq/L Potassium 3.7 (3.5-5.1) mEq/L Chloride 103 (98-107) mEq/L Carbon Dioxide 32 (21-32) mEq/L Anion Gap 13.7 (5-15) BUN 40 H (7-18) mg/dL Creatinine 1.6 H (0.7-1.3) mg/dL Est Cr Clr Drug Dosing 41.73 mL/min Estimated GFR (MDRD) 43 (>60) mL/min BUN/Creatinine Ratio 25.0 H (14-18) Glucose 104 (83-115) mg/dL POC Glucose 101 (83-110) mg/dL Calcium 9.3 (8.5-10.1) mg/dL Magnesium 2.3 (1.8-2.4) mg/dl Total Bilirubin 0.8 (0.2-1.0) mg/dL AST 16 (15-37) U/L ALT 15 L (16-63) U/L Alkaline Phosphatase 89 (46-116) U/L C-Reactive Protein 10.2 H* (<1.0) mg/dL Total Protein 7.3 (6.4-8.2) g/dl Albumin 3.2 L (3.4-5.0) g/dl Globulin 4.1 gm/dL Albumin/Globulin Ratio 0.8 L (1-2) Med Orders - Current: Current Medications Benzocaine (Hurricaine 20% [place]) 0 ml MUCMEM Q4HR PRN PRN Reason: Sore Throat Last Admin: 03/29/20 23:44 Dose: 1 spray Documented by: Benzocaine/Menthol (Cepacol Sore Throat) 1 lozenge MUCMEM Q4H PRN PRN Reason: Sore Throat Last Admin: 03/30/20 08:39 Dose: 1 lozenge Documented by: Heparin Sodium (Porcine) (Heparin Sodium) 5,000 units SUBCUT Q8H [facility] Last Admin: 03/30/20 08:39 Dose: 5,000 units Documented by: Lactated Ringer's (Ringers, Lactated) 1,000 mls @ 150 mls/hr IV ASDIRECTED [facility] Latanoprost (Xalatan 0.005% Ophth Soln) 0 ml EYERT BEDTIME [facility] Last Admin: 03/29/20 20:24 Dose: 1 drop Documented by: Metoprolol Tartrate (Lopressor) 5 mg IVPUSH Q4H PRN PRN Reason: Tachycardia Ondansetron HCl (Zofran) 4 mg IV Q6H PRN PRN Reason: Nausea/Vomiting Discontinued Medications Lactated Ringer's (Ringers, Lactated) 1,000 mls @ 125 mls/hr IV ASDIRECTED [facility] [place] Last Admin: 03/29/20 07:48 Dose: 125 mls/hr Documented by: Lactated Ringer's (Ringers, Lactated) 1,000 mls @ 175 mls/hr IV ASDIRECTED [facility] Last Admin: 03/30/20 08:39 Dose: 175 mls/hr Documented by: Ketorolac Tromethamine (Toradol) 30 mg IV Q6H PRN PRN Reason: Pain (moderate 4-6) Pantoprazole Sodium (Protonix Iv) 40 mg IVPUSH DAILY [facility] Last Admin: 03/29/20 14:13 Dose: Not Given Documented by: - Exam Quality Assessment: DVT Prophylaxis. No: Supplemental Oxygen, Urine Catheter General: Alert, Oriented, Cooperative, No Acute Distress HEENT: Pupils Equal, Pupils Reactive, Mucous Membr. Moist/[place] Neck: Supple, Trachea Midline Lungs: Clear to Auscultation, Normal Respiratory Effort Cardiovascular: Regular Rate, Regular Rhythm GI/Abdominal Exam: Normal Bowel Sounds, Distended (improved ), Tender (mild ), Abnormal Bowel Sounds (hypoactive ) (Male) Exam: Deferred Back Exam: Normal Inspection, Full Range of Motion Extremities: Normal Inspection, Normal Range of Motion, Non-Tender, No Pedal Edema, Normal Capillary Refill Skin: Warm, Dry, Intact Neurological: No New Focal Deficit Psy/Mental Status: Alert, Normal Affect, Normal Mood Sepsis Event Note - Evaluation Sepsis Screening Result: No Definite Risk - Problem List & Annotations (1) Acute kidney injury SNOMED Code(s): 06534544, 09396238 Code(s): N17.9 - ACUTE KIDNEY FAILURE, UNSPECIFIED Status: Acute Priority: High Current Visit: Yes (2) Atrial fibrillation with controlled ventricular rate SNOMED Code(s): 36617128 Code(s): I48.91 - UNSPECIFIED ATRIAL FIBRILLATION Status: Chronic Priority: Medium Current Visit: Yes (3) Chronic anticoagulation SNOMED Code(s): 567569640 Code(s): Z79.01 - SAIL MAKER (CURRENT) USE OF ANTICOAGULANTS Status: Chronic Priority: Medium Current Visit: Yes (4) Dyslipidemia SNOMED Code(s): 292739522 Code(s): E78.5 - HYPERLIPIDEMIA, UNSPECIFIED Status: Chronic Priority: Low Current Visit: No (5) Intractable nausea and vomiting SNOMED Code(s): 299429668 Code(s): R11.2 - NAUSEA WITH VOMITING, UNSPECIFIED Status: Resolved Priority: High Current Visit: Yes (6) Obesity, Class I, BMI 30-34.9 SNOMED Code(s): 129268399889982 Code(s): E66.9 - OBESITY, UNSPECIFIED Status: Chronic Priority: Low Current Visit: No (7) Small bowel obstruction SNOMED Code(s): 203548810 Code(s): K56.609 - UNSP INTESTNL OBST, UNSP TO PARTIAL VERSUS COMPLETE OBST Status: Acute Priority: High Current Visit: Yes (8) Volume depletion SNOMED Code(s): 971712821 Code(s): E86.9 - VOLUME DEPLETION, UNSPECIFIED Status: Acute Priority: High Current Visit: Yes (9) Leukocytosis SNOMED Code(s): 474131960, 414167797 Code(s): D72.829 - ELEVATED WHITE BLOOD CELL COUNT, UNSPECIFIED Status: Resolved Priority: Low Current Visit: No Qualifiers: Leukocytosis type: unspecified Qualified Code(s): D72.829 - Elevated white blood cell count, unspecified (10) Meckels diverticulum SNOMED Code(s): 69108156 Code(s): Q43.0 - MECKEL'S DIVERTICULUM (DISPLACED) (HYPERTROPHIC) Status: Chronic Priority: Medium Current Visit: No (11) Hypothyroidism SNOMED Code(s): 74546351 Code(s): E03.9 - HYPOTHYROIDISM, UNSPECIFIED Status: Chronic Priority: Medium Current Visit: No Qualifiers: Hypothyroidism type: unspecified Qualified Code(s): E03.9 - Hypothyroidism, unspecified (12) RUTHY on CPAP SNOMED Code(s): 31193856 Code(s): G47.33 - OBSTRUCTIVE SLEEP APNEA (ADULT) (PEDIATRIC) Status: Chronic Priority: Medium Current Visit: No - Problem List Review Problem List Initiated/Reviewed/Updated: Yes - My Orders Last 24 Hours: My Active Orders 03/29/20 10:24 RT Incentive Spirometry [RC] ASDIRECTED 03/29/20 10:26 Benzocaine [Hurricaine 20% [place]] 0 ml MUCMEM Q4HR PRN Benzocaine/Cetylpyrd/Menthol [Cepacol Sore Throat] 1 lozenge MUCMEM Q4H PRN 03/29/20 11:44 Admission Status [Patient Status] [ADT] Routine 03/29/20 21:00 Latanoprost [Xalatan 0.005% Oph Soln] 0 ml EYERT BEDTIME 03/30/20 10:35 Communication Order [RC] ROUTINE 03/30/20 10:45 Lactated Ringers [Ringers, Lactated] 1,000 ml IV ASDIRECTED 03/30/20 19:00 Abdomen 1V Upright [CR] Routine 03/31/20 05:11 CBC WITH AUTO DIFF [HEME] AM CMP [COMPREHENSIVE METABOLIC PN,CMP] [CHEM] AM CRP [C-REACTIVE PROTEIN] [CHEM] AM MAGNESIUM [CHEM] AM 04/01/20 05:11 CBC WITH AUTO DIFF [HEME] AM CMP [COMPREHENSIVE METABOLIC PN,CMP] [CHEM] AM CRP [C-REACTIVE PROTEIN] [CHEM] AM MAGNESIUM [CHEM] AM 04/02/20 05:11 CBC WITH AUTO DIFF [HEME] AM CMP [COMPREHENSIVE METABOLIC PN,CMP] [CHEM] AM CRP [C-REACTIVE PROTEIN] [CHEM] AM MAGNESIUM [CHEM] AM - Assessment Assessment:: ASSESSMENT 03/28/2020 3 days of intractable nausea and vomiting as well as abdominal pain Seen in outpatient setting where CT abdomen and labs were drawn CBC: WBC 11.2, hemoglobin 15.1, hematocrit 46.5, platelets 257 Chemistry: Glucose 117, sodium 142, potassium 4.5, chloride 99, CO2 26, BUN 42, creatinine 1.85, GFR 36, calcium 10.1 LFTs: Alk phos 107, AST and ALT 11 Total protein 8.7, albumin 4.7 CT abdomen with small bowel obstruction with transition point in the ileum in the right lower quadrant 03/29/2020 No leukocytosis Hgb down to 13.4 Creatinine worsened to 2.4 with GFR of 27 Anion gap 15.6 VSS Will increase IV fluids Atelectasis vs infiltrate on CXR - no infectious symptoms currently - monitor and add IS Cepacol lozenge and hurricane spray PRN for throat irritation Bedside glucose checks Q8Hr - adjust fluids if begin to drip Dr. Benoit, General surgeon recommends conservative management for next 48-72 hours, then re-evaluate surgical options 950mL out of NG tube so far Continues to ambulate with nursing Utilizing heparin in place of eliquis due to possibility of surgery (hx/o a-fib Is having flatus Last BM on Saturday03/25/20 PLAN Strict n.p.o. IV fluids as ordered Continue NG tube Intermittent suction Surgery consult - Dr. Benoit -Monitor NG output Monitor urine output Renally dose medication and avoid nephrotoxic agents Repeat labs in the morning IV fluid repletion with LR Hold home metoprolol and Eliquis due to possibility of surgery Monitor vital signs PRN metoprolol -Heparin Q8 scheduled -Telemetry Hold home losartan and hydrochlorothiazide PRN hydralazine Hold home Pitavastatin Hold home levothyroxine Continue home CPAP once NG tube is discontinued Home management with Dulcolax and senna as needed 03/30/2020 Labs remain stable NG tube output 1300mL Nearly fluid neutral Decrease IV fluids from 175 to 150mL as output is decreasing Creatinine improved to 1.6 with GFR improving to 43 Anion gap improved to 13.7 CRP 10.2 Continues to ambulate regularly Continues to report flatus Last BM 03/25/[address] Benoit - will give contrast through NG tube, clamp for 3-4 hours, and then obtain abdominal x-ray in 8 hrs Should patient become symptomatic, resume suction - Plan Plan:: Small bowel obstruction Intractable nausea and vomiting History of correction of meckels diverticulum Strict n.p.o. IV fluids as ordered - decrease to 150ml/hr Continue NG tube Intermittent suction Surgery consult - Dr. Benoit -Monitor NG output -Per Dr. Benoit - give oral contrast through NG tube, Wait 3-4hrs to resume suction and obtain abdominal xray in 8 hours -If patient becomes symptomatic - resume suction Acute kidney injury secondary to volume depletion, improving Monitor urine output Renally dose medication and avoid nephrotoxic agents Repeat labs in the morning IV fluid repletion with LR Atrial fibrillation with controlled ventricular rate on Eliquis Hold home metoprolol and Eliquis due to possibility of surgery Monitor vital signs PRN metoprolol -Heparin Q8 scheduled -Telemetry Hypertension Hold home losartan and hydrochlorothiazide PRN hydralazine Dyslipidemia Hold home Pitavastatin Hypothyroidism Hold home levothyroxine RUTHY on CPAP Continue home CPAP once NG tube is discontinued Chronic constipation Home management with Dulcolax and senna as needed Resolved: Leukocytosis PCP: Dr. Geronimo PROPHYLAXIS DVTCompression stockings and heparin GINot indicated CODE STATUS: FULL CODE DISPOSITION: Patient will be admitted to medical floor on strict n.p.o. with NG tube placement at intermittent suction as well as symptomatic treatment. Disposition will depend on if patient requires surgery.
--- NOTE | 2020-03-30 11:23 | PCM.PN ---
- General Info Date of Service: 03/30/20 Admission Dx/Problem (Free Text): Admission Diagnosis/Problem Admission Diagnosis/Problem Small bowel obstruction Subjective Update: Patient has been ambulating, abdominal pain is minimal, he is still passing some flatus. NGT output 1300mL over the past 24 hrs and still dark in color. Functional Status: Reports: Pain Controlled, Ambulating, Urinating Pain Score: 0 - Review of Systems General: Reports: No Symptoms HEENT: Reports: No Symptoms Pulmonary: Reports: No Symptoms Cardiovascular: Reports: No Symptoms Gastrointestinal: Reports: No Symptoms Genitourinary: Reports: No Symptoms Musculoskeletal: Reports: No Symptoms Skin: Reports: No Symptoms Neurological: Reports: No Symptoms Psychiatric: Reports: No Symptoms - Patient Data Vitals - Most Recent: Last Vital Signs Temp 97.5 F 03/30/20 08:27 Pulse 93 03/30/20 08:27 Resp 20 03/30/20 08:27 BP 150/77 H 03/30/20 08:27 Pulse Ox 92 L 03/30/20 08:27 Weight - Most Recent: 101.242 kg I&O - Last 24 Hours: Intake & Output 03/29/20 03/30/20 03/30/20 22:59 06:59 14:59 Intake Total 2442 1000 Output Total 875 1250 Balance 1567 -250 Lab Results Last 24 Hours: Laboratory Results - last 24 hr 03/29/20 03/29/20 03/30/20 Range/Units 13:37 21:14 05:55 WBC 9.74 H (4.23-9.07) K/mm3 RBC 4.31 L (4.63-6.08) M/mm3 Hgb 12.9 L (13.7-17.5) gm/dl Hct 41.1 (40.1-51.0) % MCV 95.4 H (79.0-92.2) fl MCH 29.9 (25.7-32.2) pg MCHC 31.4 L (32.2-35.5) g/dl RDW Std Deviation 50.9 H (35.1-43.9) fL Plt Count 221 (163-337) K/mm3 MPV 9.4 (9.4-12.3) fl Neut % (Auto) 73.2 H (34.0-67.9) % Lymph % (Auto) 16.5 L (21.8-53.1) % [place] % (Auto) 9.1 (5.3-12.2) % Eos % (Auto) 0.8 (0.8-7.0) Baso % (Auto) 0.2 (0.1-1.2) % Neut # (Auto) 7.12 H (1.78-5.38) K/mm3 Lymph # (Auto) 1.61 (1.32-3.57) K/mm3 [place] # (Auto) 0.89 H (0.30-0.82) K/mm3 Eos # (Auto) 0.08 (0.04-0.54) K/mm3 Baso # (Auto) 0.02 (0.01-0.08) K/mm3 Sodium (136-145) mEq/L Potassium (3.5-5.1) mEq/L Chloride (98-107) mEq/L Carbon Dioxide (21-32) mEq/L Anion Gap (5-15) BUN (7-18) mg/dL Creatinine (0.7-1.3) mg/dL Est Cr Clr Drug Dosing mL/min Estimated GFR (MDRD) (>60) mL/min BUN/Creatinine Ratio (14-18) Glucose (83-115) mg/dL POC Glucose 102 94 (83-110) mg/dL Calcium (8.5-10.1) mg/dL Magnesium (1.8-2.4) mg/dl Total Bilirubin (0.2-1.0) mg/dL AST (15-37) U/L ALT (16-63) U/L Alkaline Phosphatase (46-116) U/L C-Reactive Protein (<1.0) mg/dL Total Protein (6.4-8.2) g/dl Albumin (3.4-5.0) g/dl Globulin gm/dL Albumin/Globulin Ratio (1-2) 03/30/20 03/30/20 Range/Units 05:55 06:50 WBC (4.23-9.07) K/mm3 RBC (4.63-6.08) M/mm3 Hgb (13.7-17.5) gm/dl Hct (40.1-51.0) % MCV (79.0-92.2) fl MCH (25.7-32.2) pg MCHC (32.2-35.5) g/dl RDW Std Deviation (35.1-43.9) fL Plt Count (163-337) K/mm3 MPV (9.4-12.3) fl Neut % (Auto) (34.0-67.9) % Lymph % (Auto) (21.8-53.1) % [place] % (Auto) (5.3-12.2) % Eos % (Auto) (0.8-7.0) Baso % (Auto) (0.1-1.2) % Neut # (Auto) (1.78-5.38) K/mm3 Lymph # (Auto) (1.32-3.57) K/mm3 [place] # (Auto) (0.30-0.82) K/mm3 Eos # (Auto) (0.04-0.54) K/mm3 Baso # (Auto) (0.01-0.08) K/mm3 Sodium 145 (136-145) mEq/L Potassium 3.7 (3.5-5.1) mEq/L Chloride 103 (98-107) mEq/L Carbon Dioxide 32 (21-32) mEq/L Anion Gap 13.7 (5-15) BUN 40 H (7-18) mg/dL Creatinine 1.6 H (0.7-1.3) mg/dL Est Cr Clr Drug Dosing 41.73 mL/min Estimated GFR (MDRD) 43 (>60) mL/min BUN/Creatinine Ratio 25.0 H (14-18) Glucose 104 (83-115) mg/dL POC Glucose 101 (83-110) mg/dL Calcium 9.3 (8.5-10.1) mg/dL Magnesium 2.3 (1.8-2.4) mg/dl Total Bilirubin 0.8 (0.2-1.0) mg/dL AST 16 (15-37) U/L ALT 15 L (16-63) U/L Alkaline Phosphatase 89 (46-116) U/L C-Reactive Protein 10.2 H* (<1.0) mg/dL Total Protein 7.3 (6.4-8.2) g/dl Albumin 3.2 L (3.4-5.0) g/dl Globulin 4.1 gm/dL Albumin/Globulin Ratio 0.8 L (1-2) Med Orders - Current: Current Medications Benzocaine (Hurricaine 20% [place]) 0 ml MUCMEM Q4HR PRN PRN Reason: Sore Throat Last Admin: 03/29/20 23:44 Dose: 1 spray Documented by: Benzocaine/Menthol (Cepacol Sore Throat) 1 lozenge MUCMEM Q4H PRN PRN Reason: Sore Throat Last Admin: 03/30/20 08:39 Dose: 1 lozenge Documented by: Heparin Sodium (Porcine) (Heparin Sodium) 5,000 units SUBCUT Q8H [facility] Last Admin: 03/30/20 08:39 Dose: 5,000 units Documented by: Lactated Ringer's (Ringers, Lactated) 1,000 mls @ 150 mls/hr IV ASDIRECTED [facility] Latanoprost (Xalatan 0.005% Ophth Soln) 0 ml EYERT BEDTIME [facility] Last Admin: 03/29/20 20:24 Dose: 1 drop Documented by: Metoprolol Tartrate (Lopressor) 5 mg IVPUSH Q4H PRN PRN Reason: Tachycardia Ondansetron HCl (Zofran) 4 mg IV Q6H PRN PRN Reason: Nausea/Vomiting Discontinued Medications Lactated Ringer's (Ringers, Lactated) 1,000 mls @ 125 mls/hr IV ASDIRECTED [facility] Last Admin: 03/29/20 07:48 Dose: 125 mls/hr Documented by: Lactated Ringer's (Ringers, Lactated) 1,000 mls @ 175 mls/hr IV ASDIRECTED [facility] Last Admin: 03/30/20 08:39 Dose: 175 mls/hr Documented by: Ketorolac Tromethamine (Toradol) 30 mg IV Q6H PRN PRN Reason: Pain (moderate 4-6) Pantoprazole Sodium (Protonix Iv) 40 mg IVPUSH DAILY [facility] Last Admin: 03/29/20 14:13 Dose: Not Given Documented by: - Exam General: Alert, Oriented, Cooperative Lungs: Clear to Auscultation, Normal Respiratory Effort Cardiovascular: Regular Rate, Regular Rhythm, No Murmurs GI/Abdominal Exam: Soft, Non-Tender, No Organomegaly, No Distention, No Abnormal Bruit, No Mass Sepsis Event Note - Evaluation Sepsis Screening Result: No Definite Risk - Focused Exam Vital Signs: Vital Signs Temp Pulse Resp BP Pulse Ox 03/30/20 08:27 97.5 F 93 20 150/77 H 92 L 03/30/20 03:27 99.0 F 97 16 151/70 H 91 L 03/29/20 23:48 99 152/65 H 92 L 03/29/20 23:46 98.4 F 102 H 18 152/70 H 91 L - Problem List Review Problem List Initiated/Reviewed/Updated: No - Assessment Assessment:: Patient has small bowel obstruction. He is stable and progressing well. Creat is down to 1.6, WBC normal, passing flatus, abdomen is soft - Plan Plan:: - Continue NPO and NGT as output is still high - reduce IVF to 100 cc/hr to avoid fluid overload - Will do a PO contrast study. Administer PO contrast through the NGT. Clamp the NGT for 3 hrs after contrast administration. Then take an upright abdominal Xray 8 hrs after contrast administration to see progress of contrast. If patient becomes nauseated or vomits at any point, then place the NGT to suction. This plan was discussed with primary team and the patient.
[2020-03-30] MEDS: Latanoprost 0.005% Ophth Soln 2.5 ML Bottle EYERT SCH (20:34)
[2020-03-30] MEDS: Dextrose 5%-Lactated Ringers 1,000 ML IV SCH (22:25)
[2020-03-31] MEDS: Heparin Sodium 5,000 Units/ML Vial SUBCUT SCH ×3 (02:24→17:07)
[2020-03-31] MEDS: Dextrose 5%-Lactated Ringers 1,000 ML IV SCH ×3 (04:57→22:41)
--- NOTE | 2020-03-31 07:46 | PCM.PN ---
- General Info Date of Service: 03/31/20 Admission Dx/Problem (Free Text): Admission Diagnosis/Problem Admission Diagnosis/Problem Small bowel obstruction Functional Status: Reports: Pain Controlled, Tolerating Diet, Ambulating, Urinating, Incentive Spirometry. Denies: New Symptoms - Review of Systems General: Reports: No Symptoms. Denies: Fever, Weakness, Fatigue, Malaise, Chills HEENT: Reports: Sore Throat (mild 2/2 NG Tube ). Denies: Headaches Pulmonary: Reports: No Symptoms. Denies: Shortness of Breath, Cough Cardiovascular: Reports: No Symptoms. Denies: Chest Pain, Palpitations, Dyspnea on Exertion, Lightheadedness Gastrointestinal: Reports: Diarrhea (starting to have BMs), Flatus. Denies: Abdominal Pain, Nausea, Vomiting Genitourinary: Reports: No Symptoms. Denies: Pain Musculoskeletal: Reports: No Symptoms Skin: Reports: No Symptoms. Denies: Cyanosis Neurological: Reports: No Symptoms. Denies: Confusion, Numbness, Tingling, Difficulty Walking, Weakness, Gait Disturbance Psychiatric: Reports: No Symptoms - Patient Data Vitals - Most Recent: Last Vital Signs Temp 98.4 F 03/31/20 02:26 Pulse 84 03/31/20 02:26 Resp 16 03/31/20 02:26 BP 146/68 H 03/31/20 02:26 Pulse Ox 94 L 03/31/20 02:26 Weight - Most Recent: 219 lb 8 oz I&O - Last 24 Hours: Intake & Output 03/30/20 03/31/20 03/31/20 22:59 06:59 14:59 Intake Total 1900 2165 Output Total 1095 750 Balance 805 1415 Lab Results Last 24 Hours: Laboratory Results - last 24 hr 03/30/20 03/30/20 03/31/20 Range/Units 14:16 21:43 04:56 WBC (4.23-9.07) K/mm3 RBC (4.63-6.08) M/mm3 Hgb (13.7-17.5) gm/dl Hct (40.1-51.0) % MCV (79.0-92.2) fl MCH (25.7-32.2) pg MCHC (32.2-35.5) g/dl RDW Std Deviation (35.1-43.9) fL Plt Count (163-337) K/mm3 MPV (9.4-12.3) fl Neut % (Auto) (34.0-67.9) % Lymph % (Auto) (21.8-53.1) % [place] % (Auto) (5.3-12.2) % Eos % (Auto) (0.8-7.0) Baso % (Auto) (0.1-1.2) % Neut # (Auto) (1.78-5.38) K/mm3 Lymph # (Auto) (1.32-3.57) K/mm3 [place] # (Auto) (0.30-0.82) K/mm3 Eos # (Auto) (0.04-0.54) K/mm3 Baso # (Auto) (0.01-0.08) K/mm3 Sodium (136-145) mEq/L Potassium (3.5-5.1) mEq/L Chloride (98-107) mEq/L Carbon Dioxide (21-32) mEq/L Anion Gap (5-15) BUN (7-18) mg/dL Creatinine (0.7-1.3) mg/dL Est Cr Clr Drug Dosing mL/min Estimated GFR (MDRD) (>60) mL/min BUN/Creatinine Ratio (14-18) Glucose (83-115) mg/dL POC Glucose 98 88 125 H (83-110) mg/dL Calcium (8.5-10.1) mg/dL Magnesium (1.8-2.4) mg/dl Total Bilirubin (0.2-1.0) mg/dL AST (15-37) U/L ALT (16-63) U/L Alkaline Phosphatase (46-116) U/L C-Reactive Protein (<1.0) mg/dL Total Protein (6.4-8.2) g/dl Albumin (3.4-5.0) g/dl Globulin gm/dL Albumin/Globulin Ratio (1-2) 03/31/20 03/31/20 Range/Units 05:17 05:17 WBC 12.37 H (4.23-9.07) K/mm3 RBC 4.21 L (4.63-6.08) M/mm3 Hgb 12.5 L (13.7-17.5) gm/dl Hct 40.8 (40.1-51.0) % MCV 96.9 H (79.0-92.2) fl MCH 29.7 (25.7-32.2) pg MCHC 30.6 L (32.2-35.5) g/dl RDW Std Deviation 51.8 H (35.1-43.9) fL Plt Count 211 (163-337) K/mm3 MPV 9.4 (9.4-12.3) fl Neut % (Auto) 73.9 H (34.0-67.9) % Lymph % (Auto) 15.2 L (21.8-53.1) % [place] % (Auto) 8.8 (5.3-12.2) % Eos % (Auto) 1.5 (0.8-7.0) Baso % (Auto) 0.4 (0.1-1.2) % Neut # (Auto) 9.14 H (1.78-5.38) K/mm3 Lymph # (Auto) 1.88 (1.32-3.57) K/mm3 [place] # (Auto) 1.09 H (0.30-0.82) K/mm3 Eos # (Auto) 0.18 (0.04-0.54) K/mm3 Baso # (Auto) 0.05 (0.01-0.08) K/mm3 Sodium 145 (136-145) mEq/L Potassium 3.5 (3.5-5.1) mEq/L Chloride 105 (98-107) mEq/L Carbon Dioxide 33 H (21-32) mEq/L Anion Gap 10.5 (5-15) BUN 23 H (7-18) mg/dL Creatinine 1.3 (0.7-1.3) mg/dL Est Cr Clr Drug Dosing 51.36 mL/min Estimated GFR (MDRD) 54 (>60) mL/min BUN/Creatinine Ratio 17.7 (14-18) Glucose 131 H (83-115) mg/dL POC Glucose (83-110) mg/dL Calcium 8.7 (8.5-10.1) mg/dL Magnesium 2.1 (1.8-2.4) mg/dl Total Bilirubin 0.7 (0.2-1.0) mg/dL AST 18 (15-37) U/L ALT 21 (16-63) U/L Alkaline Phosphatase 91 (46-116) U/L C-Reactive Protein 11.4 H* (<1.0) mg/dL Total Protein 7.1 (6.4-8.2) g/dl Albumin 3.0 L (3.4-5.0) g/dl Globulin 4.1 gm/dL Albumin/Globulin Ratio 0.7 L (1-2) Med Orders - Current: Current Medications Benzocaine (Hurricaine 20% [place]) 0 ml MUCMEM Q4HR PRN PRN Reason: Sore Throat Last Admin: 03/29/20 23:44 Dose: 1 spray Documented by: Benzocaine/Menthol (Cepacol Sore Throat) 1 lozenge MUCMEM Q4H PRN PRN Reason: Sore Throat Last Admin: 03/30/20 08:39 Dose: 1 lozenge Documented by: Heparin Sodium (Porcine) (Heparin Sodium) 5,000 units SUBCUT Q8H [facility] Last Admin: 03/31/20 02:24 Dose: 5,000 units Documented by: Dextrose/Lactated Ringer's (Dextrose 5%-Lactated Ringers) 1,000 mls @ 150 mls/hr IV ASDIRECTED [facility] Last Admin: 03/31/20 04:57 Dose: 150 mls/hr Documented by: Latanoprost (Xalatan 0.005% [place]ph Soln) 0 ml EYERT BEDTIME [facility] Last Admin: 03/30/20 20:34 Dose: 1 drop Documented by: Metoprolol Tartrate (Lopressor) 5 mg IVPUSH Q4H PRN PRN Reason: Tachycardia Ondansetron HCl (Zofran) 4 mg IV Q6H PRN PRN Reason: Nausea/Vomiting Discontinued Medications Lactated Ringer's (Ringers, Lactated) 1,000 mls @ 125 mls/hr IV ASDIRECTED [facility] Last Admin: 03/29/20 07:48 Dose: 125 mls/hr Documented by: Lactated Ringer's (Ringers, Lactated) 1,000 mls @ 175 mls/hr IV ASDIRECTED [facility] Last Admin: 03/30/20 08:39 Dose: 175 mls/hr Documented by: Lactated Ringer's (Ringers, Lactated) 1,000 mls @ 150 mls/hr IV ASDIRECTED [facility] Last Admin: 03/30/20 20:37 Dose: 150 mls/hr Documented by: Ketorolac Tromethamine (Toradol) 30 mg IV Q6H PRN PRN Reason: Pain (moderate 4-6) Pantoprazole Sodium (Protonix Iv) 40 mg IVPUSH DAILY [facility] Last Admin: 03/29/20 14:13 Dose: Not Given Documented by: - Exam Quality Assessment: DVT Prophylaxis. No: Supplemental Oxygen, Urine Catheter General: Alert, Oriented, Cooperative, No Acute Distress HEENT: Pupils Equal, Pupils Reactive, Mucous Membr. Moist/[place] Neck: Supple, Trachea Midline Lungs: Clear to Auscultation, Normal Respiratory Effort Cardiovascular: Regular Rate, Regular Rhythm GI/Abdominal Exam: Normal Bowel Sounds, Soft, Non-Tender, No Distention (Male) Exam: Deferred Back Exam: Normal Inspection, Full Range of Motion Extremities: Normal Inspection, Normal Range of Motion, Non-Tender, No Pedal Edema, Normal Capillary Refill Skin: Warm, Dry, Intact Neurological: No New Focal Deficit Psy/Mental Status: Alert, Normal Affect, Normal Mood Sepsis Event Note - Evaluation Sepsis Screening Result: No Definite Risk - Focused Exam Vital Signs: Vital Signs Temp Pulse Resp BP Pulse Ox 03/31/20 02:26 98.4 F 84 16 146/68 H 94 L 03/30/20 23:49 97.9 F 85 16 152/71 H 93 L 03/30/20 20:35 157/72 H 03/30/20 20:24 98.6 F 96 19 152/68 H 94 L - Problem List & Annotations (1) Acute kidney injury SNOMED Code(s): 52097971, 57090259 Code(s): N17.9 - ACUTE KIDNEY FAILURE, UNSPECIFIED Status: Acute Priority: High Current Visit: Yes (2) Atrial fibrillation with controlled ventricular rate SNOMED Code(s): 86040888 Code(s): I48.91 - UNSPECIFIED ATRIAL FIBRILLATION Status: Chronic Priority: Medium Current Visit: Yes (3) Chronic anticoagulation SNOMED Code(s): 603400424 Code(s): Z79.01 - Status: Chronic Priority: Medium Current Visit: Yes (4) Dyslipidemia SNOMED Code(s): 041998121 Code(s): E78.5 - HYPERLIPIDEMIA, UNSPECIFIED Status: Chronic Priority: Low Current Visit: No (5) Intractable nausea and vomiting SNOMED Code(s): 238055085 Code(s): R11.2 - NAUSEA WITH VOMITING, UNSPECIFIED Status: Resolved Priority: High Current Visit: Yes (6) Obesity, Class I, BMI 30-34.9 SNOMED Code(s): 655736081289001 Code(s): E66.9 - OBESITY, UNSPECIFIED Status: Chronic Priority: Low Current Visit: No (7) Small bowel obstruction SNOMED Code(s): 317730581 Code(s): K56.609 - UNSP INTESTNL OBST, UNSP TO PARTIAL VERSUS COMPLETE OBST Status: Acute Priority: High Current Visit: Yes (8) Volume depletion SNOMED Code(s): 463938503 Code(s): E86.9 - VOLUME DEPLETION, UNSPECIFIED Status: Acute Priority: High Current Visit: Yes (9) Meckels diverticulum SNOMED Code(s): 86082395 Code(s): Q43.0 - MECKEL'S DIVERTICULUM (DISPLACED) (HYPERTROPHIC) Status: Chronic Priority: Medium Current Visit: No (10) Hypothyroidism SNOMED Code(s): 39217607 Code(s): E03.9 - HYPOTHYROIDISM, UNSPECIFIED Status: Chronic Priority: Medium Current Visit: No Qualifiers: Hypothyroidism type: unspecified Qualified Code(s): E03.9 - Hypothyroidism, unspecified (11) RUTHY on CPAP SNOMED Code(s): 97197287 Code(s): G47.33 - OBSTRUCTIVE SLEEP APNEA (ADULT) (PEDIATRIC) Status: Chronic Priority: Medium Current Visit: No (12) Leukocytosis SNOMED Code(s): 163901757, 640385481 Code(s): D72.829 - ELEVATED WHITE BLOOD CELL COUNT, UNSPECIFIED Status: Acute Priority: Low Current Visit: No Qualifiers: Leukocytosis type: unspecified Qualified Code(s): D72.829 - Elevated white blood cell count, unspecified - Problem List Review Problem List Initiated/Reviewed/Updated: Yes - My Orders Last 24 Hours: My Active Orders 03/30/20 19:00 Abdomen 1V Upright [CR] Routine 04/01/20 05:11 CBC WITH AUTO DIFF [HEME] AM CMP [COMPREHENSIVE METABOLIC PN,CMP] [CHEM] AM CRP [C-REACTIVE PROTEIN] [CHEM] AM MAGNESIUM [CHEM] AM 04/02/20 05:11 CBC WITH AUTO DIFF [HEME] AM CMP [COMPREHENSIVE METABOLIC PN,CMP] [CHEM] AM CRP [C-REACTIVE PROTEIN] [CHEM] AM MAGNESIUM [CHEM] AM - Assessment Assessment:: DAY OF ADMISSION ASSESSMENT 03/28/2020 3 days of intractable nausea and vomiting as well as abdominal pain Seen in outpatient setting where CT abdomen and labs were drawn CBC: WBC 11.2, hemoglobin 15.1, hematocrit 46.5, platelets 257 Chemistry: Glucose 117, sodium 142, potassium 4.5, chloride 99, CO2 26, BUN 42, creatinine 1.85, GFR 36, calcium 10.1 LFTs: Alk phos 107, AST and ALT 11 Total protein 8.7, albumin 4.7 CT abdomen with small bowel obstruction with transition point in the ileum in the right lower quadrant 03/29/2020 No leukocytosis Hgb down to 13.4 Creatinine worsened to 2.4 with GFR of 27 Anion gap 15.6 VSS Will increase IV fluids Atelectasis vs infiltrate on CXR - no infectious symptoms currently - monitor and add IS Cepacol lozenge and hurricane spray PRN for throat irritation Bedside glucose checks Q8Hr - adjust fluids if begin to drip Dr. Benoit, General surgeon recommends conservative management for next 48-72 hours, then re-evaluate surgical options 950mL out of NG tube so far Continues to ambulate with nursing Utilizing heparin in place of eliquis due to possibility of surgery (hx/o a-fib Is having flatus Last BM on Saturday03/25/20 PLAN Strict n.p.o. IV fluids as ordered Continue NG tube Intermittent suction Surgery consult - Dr. Benoit -Monitor NG output Monitor urine output Renally dose medication and avoid nephrotoxic agents Repeat labs in the morning IV fluid repletion with LR Hold home metoprolol and Eliquis due to possibility of surgery Monitor vital signs PRN metoprolol -Heparin Q8 scheduled -Telemetry Hold home losartan and hydrochlorothiazide PRN hydralazine Hold home Pitavastatin Hold home levothyroxine Continue home CPAP once NG tube is discontinued Home management with Dulcolax and senna as needed 03/30/2020 Labs remain stable NG tube output 1300mL Nearly fluid neutral Decrease IV fluids from 175 to 150mL as output is decreasing Creatinine improved to 1.6 with GFR improving to 43 Anion gap improved to 13.7 CRP 10.2 Continues to ambulate regularly Continues to report flatus Last BM 03/25/[address] Benoit - will give contrast through NG tube, clamp for 3-4 hours, and then obtain abdominal x-ray in 8 hrs Should patient become symptomatic, resume suction. Strict n.p.o. IV fluids as ordered - decrease to 150ml/hr Continue NG tube Intermittent suction Surgery consult - Dr. Benoit -Monitor NG output -Per Dr. Benoit - give oral contrast through NG tube, Wait 3-4hrs to resume suction and obtain abdominal xray in 8 hours -If patient becomes symptomatic - resume suction PLAN Monitor urine output Renally dose medication and avoid nephrotoxic agents Repeat labs in the morning IV fluid repletion with LR Hold home metoprolol and Eliquis due to possibility of surgery Monitor vital signs PRN metoprolol -Heparin Q8 scheduled -Telemetry Hold home losartan and hydrochlorothiazide PRN hydralazine Hold home Pitavastatin Hold home levothyroxine Continue home CPAP once NG tube is discontinued Home management with Dulcolax and senna as needed 03/31/2020 Continues to improve Belly is now soft Reports several liquid stools throughout the night Continues to have fairly significant NG tube output - 1270ml, brown/black in color Discussed with Dr. Benoit, will continue NG tube at least 1 more day Abdominal X-ray with contrast showed contrast throughout entire colon and in rectum IV fluids changed to D5LR and rate decreased to 100mL/HR WBC 12.37 - likely elevated due to stress reaction but will monitor Neutrophils elevated at 73.9% Afebrile Creatinine down to 1.3 with a GFR of 54 Blood glucose readings due to NPO status of 120-125 CRP 11.4 Albumin 3.0 Remains NPO status until at least tomorrow pending progress Resume home medications once off NPO status Remains in NSR with no calls on telemetry VSS Last BM today. Likely discharge in 1-2 days - Plan Plan:: Small bowel obstruction Intractable nausea and vomiting History of correction of meckels diverticulum Strict n.p.o. IV fluids as ordered - decrease to 150ml/hr Continue NG tube Intermittent suction Surgery consult - Dr. Benoit -Monitor NG output -Per Dr. Benoit - give oral contrast through NG tube, Wait 3-4hrs to resume suction and obtain abdominal xray in 8 hours -If patient becomes symptomatic - resume suction Leukocytosis -Trend labs Acute kidney injury secondary to volume depletion, improving Monitor urine output Renally dose medication and avoid nephrotoxic agents Repeat labs in the morning IV fluid repletion with LR Atrial fibrillation with controlled ventricular rate on Eliquis Hold home metoprolol and Eliquis due to possibility of surgery Monitor vital signs PRN metoprolol -Heparin Q8 scheduled -Telemetry Hypertension Hold home losartan and hydrochlorothiazide PRN hydralazine Dyslipidemia Hold home Pitavastatin Hypothyroidism Hold home levothyroxine RUTHY on CPAP Continue home CPAP once NG tube is discontinued Chronic constipation Home management with Dulcolax and senna as needed Resolved: Leukocytosis PCP: Dr. Geronimo PROPHYLAXIS DVTCompression stockings and heparin GINot indicated CODE STATUS: FULL CODE DISPOSITION: Patient will be admitted to medical floor on strict n.p.o. with NG tube placement at intermittent suction as well as symptomatic treatment. Disposition will depend on if patient requires surgery.
[2020-03-31] MEDS ORDERED: Dextrose 5%-Lactated Ringers 1,000 ML IV SCH (08:00)
[2020-03-31] MEDS ORDERED: FLU Vacc QV2020-21(65YR UP)/PF 240 MCG/0.7 ML Syringe IM ONE (10:00)
--- NOTE | 2020-03-31 11:48 | PCM.PN ---
- General Info Date of Service: 03/31/20 Admission Dx/Problem (Free Text): Admission Diagnosis/Problem Admission Diagnosis/Problem Small bowel obstruction Subjective Update: patient reports that he is doing well, no nausea or vomiting. passed several liquid stools overnight, he is ambulating. pain has resolved. Functional Status: Reports: Pain Controlled, Ambulating, Urinating - Review of Systems General: Reports: No Symptoms HEENT: Reports: No Symptoms Pulmonary: Reports: No Symptoms Cardiovascular: Reports: No Symptoms Gastrointestinal: Reports: No Symptoms Genitourinary: Reports: No Symptoms Musculoskeletal: Reports: No Symptoms Skin: Reports: No Symptoms Neurological: Reports: No Symptoms Psychiatric: Reports: No Symptoms - Patient Data Vitals - Most Recent: Last Vital Signs Temp 97.5 F 03/31/20 07:27 Pulse 82 03/31/20 07:27 Resp 20 03/31/20 07:27 BP 144/64 H 03/31/20 07:27 Pulse Ox 93 L 03/31/20 07:27 Weight - Most Recent: 99.564 kg I&O - Last 24 Hours: Intake & Output 03/30/20 03/31/20 03/31/20 22:59 06:59 14:59 Intake Total 1900 2165 Output Total 1095 750 Balance 805 1415 Lab Results Last 24 Hours: Laboratory Results - last 24 hr 03/30/20 03/30/20 03/31/20 Range/Units 14:16 21:43 04:56 WBC (4.23-9.07) K/mm3 RBC (4.63-6.08) M/mm3 Hgb (13.7-17.5) gm/dl Hct (40.1-51.0) % MCV (79.0-92.2) fl MCH (25.7-32.2) pg MCHC (32.2-35.5) g/dl RDW Std Deviation (35.1-43.9) fL Plt Count (163-337) K/mm3 MPV (9.4-12.3) fl Neut % (Auto) (34.0-67.9) % Lymph % (Auto) (21.8-53.1) % [place] % (Auto) (5.3-12.2) % Eos % (Auto) (0.8-7.0) Baso % (Auto) (0.1-1.2) % Neut # (Auto) (1.78-5.38) K/mm3 Lymph # (Auto) (1.32-3.57) K/mm3 [place] # (Auto) (0.30-0.82) K/mm3 Eos # (Auto) (0.04-0.54) K/mm3 Baso # (Auto) (0.01-0.08) K/mm3 Sodium (136-145) mEq/L Potassium (3.5-5.1) mEq/L Chloride (98-107) mEq/L Carbon Dioxide (21-32) mEq/L Anion Gap (5-15) BUN (7-18) mg/dL Creatinine (0.7-1.3) mg/dL Est Cr Clr Drug Dosing mL/min Estimated GFR (MDRD) (>60) mL/min BUN/Creatinine Ratio (14-18) Glucose (83-115) mg/dL POC Glucose 98 88 125 H (83-110) mg/dL Calcium (8.5-10.1) mg/dL Magnesium (1.8-2.4) mg/dl Total Bilirubin (0.2-1.0) mg/dL AST (15-37) U/L ALT (16-63) U/L Alkaline Phosphatase (46-116) U/L C-Reactive Protein (<1.0) mg/dL Total Protein (6.4-8.2) g/dl Albumin (3.4-5.0) g/dl Globulin gm/dL Albumin/Globulin Ratio (1-2) 03/31/20 03/31/20 03/31/20 Range/Units 05:17 05:17 11:02 WBC 12.37 H (4.23-9.07) K/mm3 RBC 4.21 L (4.63-6.08) M/mm3 Hgb 12.5 L (13.7-17.5) gm/dl Hct 40.8 (40.1-51.0) % MCV 96.9 H (79.0-92.2) fl MCH 29.7 (25.7-32.2) pg MCHC 30.6 L (32.2-35.5) g/dl RDW Std Deviation 51.8 H (35.1-43.9) fL Plt Count 211 (163-337) K/mm3 MPV 9.4 (9.4-12.3) fl Neut % (Auto) 73.9 H (34.0-67.9) % Lymph % (Auto) 15.2 L (21.8-53.1) % [place] % (Auto) 8.8 (5.3-12.2) % Eos % (Auto) 1.5 (0.8-7.0) Baso % (Auto) 0.4 (0.1-1.2) % Neut # (Auto) 9.14 H (1.78-5.38) K/mm3 Lymph # (Auto) 1.88 (1.32-3.57) K/mm3 [place] # (Auto) 1.09 H (0.30-0.82) K/mm3 Eos # (Auto) 0.18 (0.04-0.54) K/mm3 Baso # (Auto) 0.05 (0.01-0.08) K/mm3 Sodium 145 (136-145) mEq/L Potassium 3.5 (3.5-5.1) mEq/L Chloride 105 (98-107) mEq/L Carbon Dioxide 33 H (21-32) mEq/L Anion Gap 10.5 (5-15) BUN 23 H (7-18) mg/dL Creatinine 1.3 (0.7-1.3) mg/dL Est Cr Clr Drug Dosing 51.36 mL/min Estimated GFR (MDRD) 54 (>60) mL/min BUN/Creatinine Ratio 17.7 (14-18) Glucose 131 H (83-115) mg/dL POC Glucose 120 H (83-110) mg/dL Calcium 8.7 (8.5-10.1) mg/dL Magnesium 2.1 (1.8-2.4) mg/dl Total Bilirubin 0.7 (0.2-1.0) mg/dL AST 18 (15-37) U/L ALT 21 (16-63) U/L Alkaline Phosphatase 91 (46-116) U/L C-Reactive Protein 11.4 H* (<1.0) mg/dL Total Protein 7.1 (6.4-8.2) g/dl Albumin 3.0 L (3.4-5.0) g/dl Globulin 4.1 gm/dL Albumin/Globulin Ratio 0.7 L (1-2) Med Orders - Current: Current Medications Benzocaine (Hurricaine 20% [place]) 0 ml MUCMEM Q4HR PRN PRN Reason: Sore Throat Last Admin: 03/29/20 23:44 Dose: 1 spray Documented by: Benzocaine/Menthol (Cepacol Sore Throat) 1 lozenge MUCMEM Q4H PRN PRN Reason: Sore Throat Last Admin: 03/30/20 08:39 Dose: 1 lozenge Documented by: Heparin Sodium (Porcine) (Heparin Sodium) 5,000 units SUBCUT Q8H [facility] Last Admin: 03/31/20 09:20 Dose: 5,000 units Documented by: Dextrose/Lactated Ringer's (Dextrose 5%-Lactated Ringers) 1,000 mls @ 100 mls/hr IV ASDIRECTED [facility] Influenza Virus Vaccine (Fluzone High-Dose Quad ) 240 mcg IM .ONCE ONE Stop: 04/02/20 10:31 Latanoprost (Xalatan 0.005% Ophth Soln) 0 ml EYERT BEDTIME [facility] Last Admin: 03/30/20 20:34 Dose: 1 drop Documented by: Metoprolol Tartrate (Lopressor) 5 mg IVPUSH Q4H PRN PRN Reason: Tachycardia Ondansetron HCl (Zofran) 4 mg IV Q6H PRN PRN Reason: Nausea/Vomiting Discontinued Medications Lactated Ringer's (Ringers, Lactated) 1,000 mls @ 125 mls/hr IV ASDIRECTED [facility] Last Admin: 03/29/20 07:48 Dose: 125 mls/hr Documented by: Lactated Ringer's (Ringers, Lactated) 1,000 mls @ 175 mls/hr IV ASDIRECTED [facility] Last Admin: 03/30/20 08:39 Dose: 175 mls/hr Documented by: Lactated Ringer's (Ringers, Lactated) 1,000 mls @ 150 mls/hr IV ASDIRECTED [facility] Last Admin: 03/30/20 20:37 Dose: 150 mls/hr Documented by: Dextrose/Lactated Ringer's (Dextrose 5%-Lactated Ringers) 1,000 mls @ 150 mls/hr IV ASDIRECTED [facility] Last Admin: 03/31/20 04:57 Dose: 150 mls/hr Documented by: Dextrose/Lactated Ringer's (Dextrose 5%-Lactated Ringers) 1,000 mls @ 100 mls/hr IV ASDIRECTED [facility] Ketorolac Tromethamine (Toradol) 30 mg IV Q6H PRN PRN Reason: Pain (moderate 4-6) Pantoprazole Sodium (Protonix Iv) 40 mg IVPUSH DAILY [facility] Last Admin: 03/29/20 14:13 Dose: Not Given Documented by: - Exam General: Alert, Oriented Lungs: Normal Respiratory Effort Cardiovascular: Regular Rate, Regular Rhythm GI/Abdominal Exam: Soft, Non-Tender, No Organomegaly, No Distention, No Abnormal Bruit, No Mass Sepsis Event Note - Evaluation Sepsis Screening Result: No Definite Risk - Focused Exam Vital Signs: Vital Signs Temp Pulse Resp BP Pulse Ox 03/31/20 07:27 97.5 F 82 20 144/64 H 93 L 03/31/20 02:26 98.4 F 84 16 146/68 H 94 L 03/30/20 23:49 97.9 F 85 16 152/71 H 93 L - Problem List Review Problem List Initiated/Reviewed/Updated: No - My Orders Last 24 Hours: My Active Orders 03/31/20 08:15 Dextrose 5%-Lactated Ringers 1,000 ml IV ASDIRECTED - Assessment Assessment:: Patient has small bowel obstruction. Contrast exam reveals contrast in the colon after 8 hrs. This indicates resolution of obstruction or mild partial obstruction. - Plan Plan:: - Continue NGT this morning due to still high output. - decrease IVF to 100 - continue to encourage ambulation - WBC is 12, no signs of infection. we will continue to trend
[2020-03-31] MEDS: Benzocaine 20% Oral Spray 59.2 ML Canister MUCMEM PRN (21:15)
[2020-03-31] MEDS: Latanoprost 0.005% Ophth Soln 2.5 ML Bottle EYERT SCH (21:16)
[2020-04-01] MEDS: Heparin Sodium 5,000 Units/ML Vial SUBCUT SCH ×3 (01:04→17:08)
--- NOTE | 2020-04-01 07:09 | PCM.PN ---
- General Info Date of Service: 04/01/20 Admission Dx/Problem (Free Text): Admission Diagnosis/Problem Admission Diagnosis/Problem Small bowel obstruction Functional Status: Reports: Pain Controlled, Tolerating Diet, Ambulating, Urinating. Denies: New Symptoms - Review of Systems General: Reports: No Symptoms, Appetite. Denies: Fever, Weakness, Fatigue, Malaise, Chills HEENT: Reports: No Symptoms, Sore Throat (NG Tube ). Denies: Headaches Pulmonary: Reports: No Symptoms, Hemoptysis. Denies: Shortness of Breath, Pleuritic Chest Pain, Cough, Sputum, Wheezing Cardiovascular: Reports: No Symptoms. Denies: Chest Pain, Palpitations, Dyspnea on Exertion Gastrointestinal: Reports: Diarrhea (liquid stools while NPO), Flatus. Denies: Abdominal Pain, Constipation, Decreased Appetite, Difficulty Swallowing, Hematochezia, Melena, Nausea, Vomiting Genitourinary: Reports: No Symptoms. Denies: Pain Musculoskeletal: Reports: No Symptoms Skin: Reports: No Symptoms. Denies: Cyanosis Neurological: Reports: No Symptoms. Denies: Confusion, Numbness, Tingling, Difficulty Walking, Weakness, Gait Disturbance Psychiatric: Reports: No Symptoms - Patient Data Vitals - Most Recent: Last Vital Signs Temp 97.9 F 04/01/20 04:47 Pulse 73 04/01/20 04:47 Resp 12 04/01/20 04:47 BP 158/68 H 04/01/20 04:47 Pulse Ox 94 L 04/01/20 04:47 Weight - Most Recent: 218 lb 14.4 oz I&O - Last 24 Hours: Intake & Output 03/31/20 04/01/20 04/01/20 22:59 06:59 14:59 Intake Total 1300 1336 Output Total 1325 1550 Balance -25 -214 Lab Results Last 24 Hours: Laboratory Results - last 24 hr 03/31/20 03/31/20 03/31/20 Range/Units 11:02 17:05 21:20 POC Glucose 120 H 109 113 H (83-110) mg/dL 04/01/20 Range/Units 04:53 POC Glucose 118 H (83-110) mg/dL Med Orders - Current: Current Medications Benzocaine (Hurricaine 20% [place]) 0 ml MUCMEM Q4HR PRN PRN Reason: Sore Throat Last Admin: 03/31/20 21:15 Dose: 1 spray Documented by: Benzocaine/Menthol (Cepacol Sore Throat) 1 lozenge MUCMEM Q4H PRN PRN Reason: Sore Throat Last Admin: 03/30/20 08:39 Dose: 1 lozenge Documented by: Heparin Sodium (Porcine) (Heparin Sodium) 5,000 units SUBCUT Q8H [facility] Last Admin: 04/01/20 01:04 Dose: 5,000 units Documented by: Dextrose/Lactated Ringer's (Dextrose 5%-Lactated Ringers) 1,000 mls @ 100 [facility]ls[facility] Last Admin: 03/31/20 22:41 Dose: 100 mls/hr Documented by: Influenza Virus Vaccine (Fluzone High-Dose Quad ) 240 mcg IM .ONCE ONE Stop: 04/02/20 10:31 Latanoprost (Xalatan 0.005% Ophth Soln) 0 ml EYERT BEDTIME [facility] Last Admin: 03/31/20 21:16 Dose: 1 drop Documented by: Metoprolol Tartrate (Lopressor) 5 mg IVPUSH Q4H PRN PRN Reason: Tachycardia Ondansetron HCl (Zofran) 4 mg IV Q6H PRN PRN Reason: Nausea/Vomiting Discontinued Medications Lactated Ringer's (Ringers, Lactated) 1,000 mls @ 125 mls[facility] Last Admin: 03/29/20 07:48 Dose: 125 mls/hr Documented by: Lactated Ringer's (Ringers, Lactated) 1,000 mls @ 175 mls/hr IV ASDIRECTED [facility] Last Admin: 03/30/20 08:39 Dose: 175 mls/hr Documented by: Lactated Ringer's (Ringers, Lactated) 1,000 mls @ 150 mls/hr IV ASDIRECTED [facility] Last Admin: 03/30/20 20:37 Dose: 150 mls/hr Documented by: Dextrose/Lactated Ringer's (Dextrose 5%-Lactated Ringers) 1,000 mls @ 150 [facility]ls[facility] Last Admin: 03/31/20 04:57 Dose: 150 mls/hr Documented by: Dextrose/Lactated Ringer's (Dextrose 5%-Lactated Ringers) 1,000 mls @ 100 mls/hr IV ASDIRECTED [facility] Ketorolac Tromethamine (Toradol) 30 mg IV Q6H PRN PRN Reason: Pain (moderate 4-6) Pantoprazole Sodium (Protonix Iv) 40 mg IVPUSH DAILY [facility] Last Admin: 03/29/20 14:13 Dose: Not Given Documented by: - Exam Quality Assessment: DVT Prophylaxis General: Alert, Oriented, Cooperative, No Acute Distress HEENT: Pupils Equal, Pupils Reactive, Mucous Membr. Moist/[place] Neck: Supple, Trachea Midline Lungs: Clear to Auscultation, Normal Respiratory Effort Cardiovascular: Regular Rate, Regular Rhythm GI/Abdominal Exam: Normal Bowel Sounds, Soft, Non-Tender, No Distention (Male) Exam: Deferred Back Exam: Normal Inspection, Full Range of Motion Extremities: Normal Inspection, Normal Range of Motion, Non-Tender, No Pedal Edema, Normal Capillary Refill Skin: Warm, Dry, Intact Neurological: No New Focal Deficit Psy/Mental Status: Alert, Normal Affect, Normal Mood Sepsis Event Note - Evaluation Sepsis Screening Result: No Definite Risk - Focused Exam Vital Signs: Vital Signs Temp Pulse Resp BP Pulse Ox 04/01/20 04:47 97.9 F 73 12 158/68 H 94 L 04/01/20 00:58 98.2 F 71 14 130/77 95 03/31/20 21:14 98.4 F 75 14 140/74 98 - Problem List & Annotations (1) Acute kidney injury SNOMED Code(s): 32195429, 19937858 Code(s): N17.9 - ACUTE KIDNEY FAILURE, UNSPECIFIED Status: Acute Priority: High Current Visit: Yes (2) Atrial fibrillation with controlled ventricular rate SNOMED Code(s): 44626267 Code(s): I48.91 - UNSPECIFIED ATRIAL FIBRILLATION Status: Chronic Priority: Medium Current Visit: Yes (3) Chronic anticoagulation SNOMED Code(s): 071242723 Code(s): Z79.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 OF ANTICOAGULANTS Status: Chronic Priority: Medium Current Visit: Yes (4) Dyslipidemia SNOMED Code(s): 713746647 Code(s): E78.5 - HYPERLIPIDEMIA, UNSPECIFIED Status: Chronic Priority: Low Current Visit: No (5) Intractable nausea and vomiting SNOMED Code(s): 610530783 Code(s): R11.2 - NAUSEA WITH VOMITING, UNSPECIFIED Status: Resolved Priority: High Current Visit: Yes (6) Obesity, Class I, BMI 30-34.9 SNOMED Code(s): 862881812686866 Code(s): E66.9 - OBESITY, UNSPECIFIED Status: Chronic Priority: Low Current Visit: No (7) Small bowel obstruction SNOMED Code(s): 795300116 Code(s): K56.609 - UNSP INTESTNL OBST, UNSP TO PARTIAL VERSUS COMPLETE OBST Status: Acute Priority: High Current Visit: Yes (8) Volume depletion SNOMED Code(s): 814161792 Code(s): E86.9 - VOLUME DEPLETION, UNSPECIFIED Status: Acute Priority: High Current Visit: Yes (9) Meckels diverticulum SNOMED Code(s): 41143467 Code(s): Q43.0 - MECKEL'S DIVERTICULUM (DISPLACED) (HYPERTROPHIC) Status: Chronic Priority: Medium Current Visit: No (10) Hypothyroidism SNOMED Code(s): 98693978 Code(s): E03.9 - HYPOTHYROIDISM, UNSPECIFIED Status: Chronic Priority: Medium Current Visit: No Qualifiers: Hypothyroidism type: unspecified Qualified Code(s): E03.9 - Hypothyroidism, unspecified (11) RUTHY on CPAP SNOMED Code(s): 77304563 Code(s): G47.33 - OBSTRUCTIVE SLEEP APNEA (ADULT) (PEDIATRIC) Status: Chronic Priority: Medium Current Visit: No (12) Leukocytosis SNOMED Code(s): 878323577, 228612306 Code(s): D72.829 - ELEVATED WHITE BLOOD CELL COUNT, UNSPECIFIED Status: Acute Priority: Low Current Visit: No Qualifiers: Leukocytosis type: unspecified Qualified Code(s): D72.829 - Elevated white blood cell count, unspecified - Problem List Review Problem List Initiated/Reviewed/Updated: Yes - My Orders Last 24 Hours: My Active Orders 04/01/20 05:11 CBC WITH AUTO DIFF [HEME] AM CMP [COMPREHENSIVE METABOLIC PN,CMP] [CHEM] AM CRP [C-REACTIVE PROTEIN] [CHEM] AM MAGNESIUM [CHEM] AM 04/02/20 05:11 CBC WITH AUTO DIFF [HEME] AM CMP [COMPREHENSIVE METABOLIC PN,CMP] [CHEM] AM CRP [C-REACTIVE PROTEIN] [CHEM] AM MAGNESIUM [CHEM] AM - Assessment Assessment:: DAY OF ADMISSION ASSESSMENT 03/28/2020 3 days of intractable nausea and vomiting as well as abdominal pain Seen in outpatient setting where CT abdomen and labs were drawn CBC: WBC 11.2, hemoglobin 15.1, hematocrit 46.5, platelets 257 Chemistry: Glucose 117, sodium 142, potassium 4.5, chloride 99, CO2 26, BUN 42, creatinine 1.85, GFR 36, calcium 10.1 LFTs: Alk phos 107, AST and ALT 11 Total protein 8.7, albumin 4.7 CT abdomen with small bowel obstruction with transition point in the ileum in the right lower quadrant 03/29/2020 No leukocytosis Hgb down to 13.4 Creatinine worsened to 2.4 with GFR of 27 Anion gap 15.6 VSS Will increase IV fluids Atelectasis vs infiltrate on CXR - no infectious symptoms currently - monitor and add IS Cepacol lozenge and hurricane spray PRN for throat irritation Bedside glucose checks Q8Hr - adjust fluids if begin to drip Dr. Benoit, General surgeon recommends conservative management for next 48-72 hours, then re-evaluate surgical options 950mL out of NG tube so far Continues to ambulate with nursing Utilizing heparin in place of eliquis due to possibility of surgery (hx/o a-fib Is having flatus Last BM on Saturday03/25/20 PLAN Strict n.p.o. IV fluids as ordered Continue NG tube Intermittent suction Surgery consult - Dr. Benoit -Monitor NG output Monitor urine output Renally dose medication and avoid nephrotoxic agents Repeat labs in the morning IV fluid repletion with LR Hold home metoprolol and Eliquis due to possibility of surgery Monitor vital signs PRN metoprolol -Heparin Q8 scheduled -Telemetry Hold home losartan and hydrochlorothiazide PRN hydralazine Hold home Pitavastatin Hold home levothyroxine Continue home CPAP once NG tube is discontinued Home management with Dulcolax and senna as needed 03/30/2020 Labs remain stable NG tube output 1300mL Nearly fluid neutral Decrease IV fluids from 175 to 150mL as output is decreasing Creatinine improved to 1.6 with GFR improving to 43 Anion gap improved to 13.7 CRP 10.2 Continues to ambulate regularly Continues to report flatus Last BM 03/25/[address] Benoit - will give contrast through NG tube, clamp for 3-4 hours, and then obtain abdominal x-ray in 8 hrs Should patient become symptomatic, resume suction. Strict n.p.o. IV fluids as ordered - decrease to 150ml/hr Continue NG tube Intermittent suction Surgery consult - Dr. Benoit -Monitor NG output -Per Dr. Benoit - give oral contrast through NG tube, Wait 3-4hrs to resume suction and obtain abdominal xray in 8 hours -If patient becomes symptomatic - resume suction PLAN Monitor urine output Renally dose medication and avoid nephrotoxic agents Repeat labs in the morning IV fluid repletion with LR Hold home metoprolol and Eliquis due to possibility of surgery Monitor vital signs PRN metoprolol -Heparin Q8 scheduled -Telemetry Hold home losartan and hydrochlorothiazide PRN hydralazine Hold home Pitavastatin Hold home levothyroxine Continue home CPAP once NG tube is discontinued Home management with Dulcolax and senna as needed 03/31/2020 Continues to improve Belly is now soft Reports several liquid stools throughout the night Continues to have fairly significant NG tube output - 1270ml, brown/black in color Discussed with Dr. Benoit, will continue NG tube at least 1 more day Abdominal X-ray with contrast showed contrast throughout entire colon and in rectum IV fluids changed to D5LR and rate decreased to 100mL/HR WBC 12.37 - likely elevated due to stress reaction but will monitor Neutrophils elevated at 73.9% Afebrile Creatinine down to 1.3 with a GFR of 54 Blood glucose readings due to NPO status of 120-125 CRP 11.4 Albumin 3.0 Remains NPO status until at least tomorrow pending progress Resume home medications once off NPO status Remains in NSR with no calls on telemetry VSS Last BM today. Likely discharge in 1-2 days 04/01/2020 Continues to improve Continues to ambulate frequently Abdomen soft with active bowel sounds Continues to have liquid stools 1900mL NG output last night however patient was eating ice chips Discussed with Dr. Benoit - will cap NG tube for 4 hours and pull if no symptoms, then start clear liquids Will discontinue IV fluids once patient tolerates clear liquids Resume home medications tonight/tomorrow as ordered Afebrile Discontinue blood glucose checks once tolerating feeds Continuing to utilize IS WBC 11.24- down from yesterday Sodium 147 Creatinine 1.2 with GFR of 60 CRP 10.3 Remains in NSR with no calls on telemetry Last BM today Likely discharge 1-2 days pending continued improvement and successful advancement of diet - Plan Plan:: Small bowel obstruction Intractable nausea and vomiting History of correction of meckels diverticulum Advance to clear liquid diet - advance as tolerated IV fluids as ordered - discontinue once completes clear liquid meal Discontinue NG tube Surgery consult - Dr. Benoit -Resume PO medications tomorrow as indicated Leukocytosis, stable - likely stress reaction -Trend labs Atrial fibrillation with controlled ventricular rate on Eliquis Resume home metoprolol and Eliquis as ordered Monitor vital signs PRN metoprolol -Discontinue heparin after 1400 dose -Telemetry Hypertension Resume home losartan and hydrochlorothiazide tomorrow PRN hydralazine Dyslipidemia Hold home Pitavastatin Hypothyroidism Resume home levothyroxine tomorrow RUTHY on CPAP Continue home CPAP tonight Chronic constipation Home management with Dulcolax and senna as needed Resolved: Acute kidney injury secondary to volume depletion, resolved PCP: Dr. Geroinmo PROPHYLAXIS DVTCompression stockings and heparin; Resume BID home Eliquis tonight GINot indicated CODE STATUS: FULL CODE DISPOSITION: Patient remains admitted to medical floor. Will remove NG tube and begin diet advancement today. Hopeful for discharge in next 1-2 days pending successful advancement of diet LOS >96 Hrs due to slow response to treatment requiring extended time with NG tube
[2020-04-01] MEDS: Dextrose 5%-Lactated Ringers 1,000 ML IV SCH (08:20)
--- NOTE | 2020-04-01 14:18 | PCM.PN ---
- General Info Date of Service: 04/01/20 Admission Dx/Problem (Free Text): Admission Diagnosis/Problem Admission Diagnosis/Problem Small bowel obstruction Subjective Update: Passing some flatus. passed some stool as well. no fevers or chills Functional Status: Reports: Pain Controlled, Ambulating, Urinating - Review of Systems General: Reports: No Symptoms HEENT: Reports: No Symptoms Pulmonary: Reports: No Symptoms Cardiovascular: Reports: No Symptoms Gastrointestinal: Reports: No Symptoms Genitourinary: Reports: No Symptoms Musculoskeletal: Reports: No Symptoms Skin: Reports: No Symptoms Neurological: Reports: No Symptoms Psychiatric: Reports: No Symptoms - Patient Data Vitals - Most Recent: Last Vital Signs Temp 97.9 F 04/01/20 12:37 Pulse 75 04/01/20 12:37 Resp 14 04/01/20 12:37 BP 145/70 H 04/01/20 12:37 Pulse Ox 96 04/01/20 12:37 Weight - Most Recent: 99.291 kg I&O - Last 24 Hours: Intake & Output 03/31/20 04/01/20 04/01/20 22:59 06:59 14:59 Intake Total 1300 1336 Output Total 1325 1550 Balance -25 -214 Lab Results Last 24 Hours: Laboratory Results - last 24 hr 03/31/20 03/31/20 04/01/20 Range/Units 17:05 21:20 04:53 WBC (4.23-9.07) K/mm3 RBC (4.63-6.08) M/mm3 Hgb (13.7-17.5) gm/dl Hct (40.1-51.0) % MCV (79.0-92.2) fl MCH (25.7-32.2) pg MCHC (32.2-35.5) g/dl RDW Std Deviation (35.1-43.9) fL Plt Count (163-337) K/mm3 MPV (9.4-12.3) fl Neut % (Auto) (34.0-67.9) % Lymph % (Auto) (21.8-53.1) % [place] % (Auto) (5.3-12.2) % Eos % (Auto) (0.8-7.0) Baso % (Auto) (0.1-1.2) % Neut # (Auto) (1.78-5.38) K/mm3 Lymph # (Auto) (1.32-3.57) K/mm3 [place] # (Auto) (0.30-0.82) K/mm3 Eos # (Auto) (0.04-0.54) K/mm3 Baso # (Auto) (0.01-0.08) K/mm3 Sodium (136-145) mEq/L Potassium (3.5-5.1) mEq/L Chloride (98-107) mEq/L Carbon Dioxide (21-32) mEq/L Anion Gap (5-15) BUN (7-18) mg/dL Creatinine (0.7-1.3) mg/dL Est Cr Clr Drug Dosing mL/min Estimated GFR (MDRD) (>60) mL/min BUN/Creatinine Ratio (14-18) Glucose (83-115) mg/dL POC Glucose 109 113 H 118 H (83-110) mg/dL Calcium (8.5-10.1) mg/dL Magnesium (1.8-2.4) mg/dl Total Bilirubin (0.2-1.0) mg/dL AST (15-37) U/L ALT (16-63) U/L Alkaline Phosphatase (46-116) U/L C-Reactive Protein (<1.0) mg/dL Total Protein (6.4-8.2) g/dl Albumin (3.4-5.0) g/dl Globulin gm/dL Albumin/Globulin Ratio (1-2) 04/01/20 04/01/20 Range/Units 08:33 08:33 WBC 11.24 H (4.23-9.07) K/mm3 RBC 4.24 L (4.63-6.08) M/mm3 Hgb 12.6 L (13.7-17.5) gm/dl Hct 41.0 (40.1-51.0) % MCV 96.7 H (79.0-92.2) fl MCH 29.7 (25.7-32.2) pg MCHC 30.7 L (32.2-35.5) g/dl RDW Std Deviation 51.6 H (35.1-43.9) fL Plt Count 213 (163-337) K/mm3 MPV 9.1 L (9.4-12.3) fl Neut % (Auto) 71.2 H (34.0-67.9) % Lymph % (Auto) 17.0 L (21.8-53.1) % [place] % (Auto) 8.1 (5.3-12.2) % Eos % (Auto) 2.8 (0.8-7.0) Baso % (Auto) 0.4 (0.1-1.2) % Neut # (Auto) 8.00 H (1.78-5.38) K/mm3 Lymph # (Auto) 1.91 (1.32-3.57) K/mm3 [place] # (Auto) 0.91 H (0.30-0.82) K/mm3 Eos # (Auto) 0.32 (0.04-0.54) K/mm3 Baso # (Auto) 0.04 (0.01-0.08) K/mm3 Sodium 147 H (136-145) mEq/L Potassium 3.5 (3.5-5.1) mEq/L Chloride 105 (98-107) mEq/L Carbon Dioxide 31 (21-32) mEq/L Anion Gap 14.5 (5-15) BUN 15 (7-18) mg/dL Creatinine 1.2 (0.7-1.3) mg/dL Est Cr Clr Drug Dosing 55.64 mL/min Estimated GFR (MDRD) 60 (>60) mL/min BUN/Creatinine Ratio 12.5 L (14-18) Glucose 126 H (83-115) mg/dL POC Glucose (83-110) mg/dL Calcium 9.1 (8.5-10.1) mg/dL Magnesium 2.0 (1.8-2.4) mg/dl Total Bilirubin 0.7 (0.2-1.0) mg/dL AST 22 (15-37) U/L ALT 24 (16-63) U/L Alkaline Phosphatase 95 (46-116) U/L C-Reactive Protein 10.3 H* (<1.0) mg/dL Total Protein 7.0 (6.4-8.2) g/dl Albumin 3.1 L (3.4-5.0) g/dl Globulin 3.9 gm/dL Albumin/Globulin Ratio 0.8 L (1-2) Med Orders - Current: Current Medications Apixaban (Eliquis) 5 mg PO BID [facility] Benzocaine (Hurricaine 20% [place]) 0 ml MUCMEM Q4HR PRN PRN Reason: Sore Throat Last Admin: 03/31/20 21:15 Dose: 1 spray Documented by: Benzocaine/Menthol (Cepacol Sore Throat) 1 lozenge MUCMEM Q4H PRN PRN Reason: Sore Throat Last Admin: 03/30/20 08:39 Dose: 1 lozenge Documented by: Heparin Sodium (Porcine) (Heparin Sodium) 5,000 units SUBCUT Q8H [facility] Stop: 04/01/20 19:00 Last Admin: 04/01/20 08:21 Dose: 5,000 units Documented by: Hydrochlorothiazide (Hydrochlorothiazide) 12.5 mg PO DAILY [facility] Influenza Virus Vaccine (Fluzone High-Dose Quad ) 240 mcg IM .ONCE ONE Stop: 04/02/20 10:31 Latanoprost (Xalatan 0.005% Oph Soln) 0 ml EYERT BEDTIME [facility] Last Admin: 03/31/20 21:16 Dose: 1 drop Documented by: Levothyroxine Sodium (Synthroid) 100 mcg PO ACBRK [facility] Levothyroxine Sodium (Levothyroxine) 75 mcg PO ACBRK [facility] Losartan Potassium (Cozaar) 50 mg PO DAILY [facility] Metoprolol Succinate (Toprol Xl) 100 mg PO BID [facility] Metoprolol Tartrate (Lopressor) 5 mg IVPUSH Q4H PRN PRN Reason: Tachycardia Ondansetron HCl (Zofran) 4 mg IV Q6H PRN PRN Reason: Nausea/Vomiting Discontinued Medications Lactated Ringer's (Ringers, Lactated) 1,000 mls @ 125 mls/hr IV ASDIRECTED [facility] Last Admin: 03/29/20 07:48 Dose: 125 mls/hr Documented by: Lactated Ringer's (Ringers, Lactated) 1,000 mls @ 175 mls/hr IV ASDIRECTED [facility] Last Admin: 03/30/20 08:39 Dose: 175 mls/hr Documented by: Lactated Ringer's (Ringers, Lactated) 1,000 mls @ 150 mls/hr IV ASDIRECTED [facility] Last Admin: 03/30/20 20:37 Dose: 150 mls/hr Documented by: Dextrose/Lactated Ringer's (Dextrose 5%-Lactated Ringers) 1,000 mls @ 150 mls/hr IV ASDIRECTED [facility] Last Admin: 03/31/20 04:57 Dose: 150 mls/hr Documented by: Dextrose/Lactated Ringer's (Dextrose 5%-Lactated Ringers) 1,000 mls @ 100 mls/hr IV ASDIRECTED [facility] Dextrose/Lactated Ringer's (Dextrose 5%-Lactated Ringers) 1,000 mls @ 100 mls/hr IV ASDIRECTED [facility] Last Admin: 04/01/20 08:20 Dose: 100 mls/hr Documented by: Ketorolac Tromethamine (Toradol) 30 mg IV Q6H PRN PRN Reason: Pain (moderate 4-6) Pantoprazole Sodium (Protonix Iv) 40 mg IVPUSH DAILY [facility] Last Admin: 03/29/20 14:13 Dose: Not Given Documented by: - Exam General: Alert, Oriented, Cooperative Lungs: Clear to Auscultation, Normal Respiratory Effort Cardiovascular: Regular Rate, Regular Rhythm GI/Abdominal Exam: Soft, Non-Tender, No Organomegaly, No Distention, No Abnormal Bruit Sepsis Event Note - Evaluation Sepsis Screening Result: No Definite Risk - Focused Exam Vital Signs: Vital Signs Temp Pulse Resp BP Pulse Ox 04/01/20 12:37 97.9 F 75 14 145/70 H 96 04/01/20 11:25 97.9 F 75 16 153/76 H 95 04/01/20 07:49 97.9 F 90 18 143/73 H 95 04/01/20 04:47 97.9 F 73 12 158/68 H 94 L - Problem List Review Problem List Initiated/Reviewed/Updated: No - Assessment Assessment:: Patient has SOB. this is resolving. - Plan Plan:: - NGT output was 1900 but most of this may be due to consumption of ice chips over the past 24 hrs. patient is otherwise feeling well. he is hungry and has bowel function. Plan today is to clamp the NGT for 4 hrs, if no nausea or vomiting, remove NGT and start clears and advance as tolerated. likely discharge tomorrow if patient progresses well with diet.
[2020-04-01] MEDS: Latanoprost 0.005% Ophth Soln 2.5 ML Bottle EYERT SCH (20:04)
[2020-04-01] MEDS: Metoprolol Succinate 50 MG Tab.ER PO SCH (20:04)
[2020-04-01] MEDS: Apixaban 5 MG Tab PO SCH (20:05)
[2020-04-02] MEDS ORDERED: Levothyroxine 75 MCG Tab PO SCH (06:00)
[2020-04-02] MEDS ORDERED: Levothyroxine 100 MCG Tab PO SCH (06:00)
[2020-04-02] MEDS ORDERED: Magnesium Sulfate/Water 2 GM in Premix Bag 1 BAG IV ONE (08:43)
[2020-04-02] MEDS ORDERED: Potassium Chloride 20 MEQ Tab.ER PO ONE (08:43)
[2020-04-02] MEDS ORDERED: Losartan 25 MG Tab PO SCH (09:00)
[2020-04-02] MEDS ORDERED: Hydrochlorothiazide 12.5 MG Cap PO SCH (09:00)
[2020-04-02] MEDS: Apixaban 5 MG Tab PO SCH (09:29)
[2020-04-02] MEDS: Metoprolol Succinate 50 MG Tab.ER PO SCH (09:52)
[2020-04-02 09:59] VITALS: BP 127/63; PULSE 77
--- NOTE | 2020-04-02 10:22 | PCM.PN ---
- General Info Date of Service: 04/02/20 Admission Dx/Problem (Free Text): Admission Diagnosis/Problem Admission Diagnosis/Problem Small bowel obstruction Subjective Update: patient tolerated diet, no nausea or vomiting, he had 2 BMs yesterday and is passing flatus. No abdominal pain. Functional Status: Reports: Pain Controlled, Tolerating Diet, Ambulating, Urinating - Review of Systems General: Reports: No Symptoms HEENT: Reports: No Symptoms Pulmonary: Reports: No Symptoms Cardiovascular: Reports: No Symptoms Gastrointestinal: Reports: No Symptoms Genitourinary: Reports: No Symptoms Musculoskeletal: Reports: No Symptoms Skin: Reports: No Symptoms Neurological: Reports: No Symptoms Psychiatric: Reports: No Symptoms - Patient Data Vitals - Most Recent: Last Vital Signs Temp 98.4 F 04/02/20 08:00 Pulse 77 04/02/20 09:52 Resp 20 04/02/20 08:00 BP 127/63 04/02/20 09:52 Pulse Ox 96 04/02/20 08:00 Weight - Most Recent: 101.015 kg I&O - Last 24 Hours: Intake & Output 04/01/20 04/02/20 04/02/20 22:59 06:59 14:59 Intake Total 1840 800 Output Total 2 400 Balance 1838 400 Lab Results Last 24 Hours: Laboratory Results - last 24 hr 04/01/20 04/02/20 04/02/20 Range/Units 14:19 05:35 05:35 WBC 9.42 H (4.23-9.07) K/mm3 RBC 4.14 L (4.63-6.08) M/mm3 Hgb 12.4 L (13.7-17.5) gm/dl Hct 39.8 L (40.1-51.0) % MCV 96.1 H (79.0-92.2) fl MCH 30.0 (25.7-32.2) pg MCHC 31.2 L (32.2-35.5) g/dl RDW Std Deviation 51.7 H (35.1-43.9) fL Plt Count 198 (163-337) K/mm3 MPV 9.3 L (9.4-12.3) fl Neut % (Auto) 59.2 (34.0-67.9) % Lymph % (Auto) 25.8 (21.8-53.1) % [place] % (Auto) 8.3 (5.3-12.2) % Eos % (Auto) 5.1 (0.8-7.0) Baso % (Auto) 0.6 (0.1-1.2) % Neut # (Auto) 5.58 H (1.78-5.38) K/mm3 Lymph # (Auto) 2.43 (1.32-3.57) K/mm3 [place] # (Auto) 0.78 (0.30-0.82) K/mm3 Eos # (Auto) 0.48 (0.04-0.54) K/mm3 Baso # (Auto) 0.06 (0.01-0.08) K/mm3 Sodium 142 (136-145) mEq/L Potassium 3.3 L (3.5-5.1) mEq/L Chloride 102 (98-107) mEq/L Carbon Dioxide 31 (21-32) mEq/L Anion Gap 12.3 (5-15) BUN 14 (7-18) mg/dL Creatinine 1.3 (0.7-1.3) mg/dL Est Cr Clr Drug Dosing 51.36 mL/min Estimated GFR (MDRD) 54 (>60) mL/min BUN/Creatinine Ratio 10.8 L (14-18) Glucose 112 (83-115) mg/dL POC Glucose 129 H (83-110) mg/dL Calcium 8.4 L (8.5-10.1) mg/dL Magnesium 1.7 L (1.8-2.4) mg/dl Total Bilirubin 0.6 (0.2-1.0) mg/dL AST 32 (15-37) U/L ALT 39 (16-63) U/L Alkaline Phosphatase 103 (46-116) U/L Total Protein 6.8 (6.4-8.2) g/dl Albumin 3.0 L (3.4-5.0) g/dl Globulin 3.8 gm/dL Albumin/Globulin Ratio 0.8 L (1-2) Med Orders - Current: Current Medications Apixaban (Eliquis) 5 mg PO BID [facility] Last Admin: 04/02/20 09:29 Dose: 5 mg Documented by: Benzocaine (Hurricaine 20% [place]) 0 ml MUCMEM Q4HR PRN PRN Reason: Sore Throat Last Admin: 03/31/20 21:15 Dose: 1 spray Documented by: Benzocaine/Menthol (Cepacol Sore Throat) 1 lozenge MUCMEM Q4H PRN PRN Reason: Sore Throat Last Admin: 03/30/20 08:39 Dose: 1 lozenge Documented by: Hydrochlorothiazide (Hydrochlorothiazide) 12.5 mg PO DAILY [facility] Last Admin: 04/02/20 09:52 Dose: 12.5 mg Documented by: Magnesium Sulfate 2 gm/ Premix 50 mls @ 25 mls/hr IV ONETIME ONE Stop: 04/02/20 10:42 Last Admin: 04/02/20 10:08 Dose: 25 mls/hr Documented by: Influenza Virus Vaccine (Fluzone High-Dose Quad ) 240 mcg IM .ONCE ONE Stop: 04/02/20 10:31 Latanoprost (Xalatan 0.005% Ophth Soln) 0 ml EYERT BEDTIME [facility] Last Admin: 04/01/20 20:04 Dose: 1 drop Documented by: Levothyroxine Sodium (Synthroid) 100 mcg PO [facility] Last Admin: 04/02/20 06:10 Dose: 100 mcg Documented by: Levothyroxine Sodium (Levothyroxine) 75 mcg PO [facility] Last Admin: 04/02/20 06:10 Dose: 75 mcg Documented by: Losartan Potassium (Cozaar) 50 mg PO DAILY [facility] Last Admin: 04/02/20 09:51 Dose: 50 mg Documented by: Metoprolol Succinate (Toprol Xl) 100 mg PO BID [facility] Last Admin: 04/02/20 09:52 Dose: 100 mg Documented by: Metoprolol Tartrate (Lopressor) 5 mg IVPUSH Q4H PRN PRN Reason: Tachycardia Ondansetron HCl (Zofran) 4 mg IV Q6H PRN PRN Reason: Nausea/Vomiting Discontinued Medications Heparin Sodium (Porcine) (Heparin Sodium) 5,000 units SUBCUT Q8H [facility] Stop: 04/01/20 19:00 Last Admin: 04/01/20 17:08 Dose: 5,000 units Documented by: Lactated Ringer's (Ringers, Lactated) 1,000 mls @ 125 mls/hr IV ASDIRECTED [facility] Last Admin: 03/29/20 07:48 Dose: 125 mls/hr Documented by: Lactated Ringer's (Ringers, Lactated) 1,000 mls @ 175 mls/hr IV ASDIRECTED [facility] Last Admin: 03/30/20 08:39 Dose: 175 mls/hr Documented by: Lactated Ringer's (Ringers, Lactated) 1,000 mls @ 150 mls/hr IV ASDIRECTED [facility] Last Admin: 03/30/20 20:37 Dose: 150 mls/hr Documented by: Dextrose/Lactated Ringer's (Dextrose 5%-Lactated Ringers) 1,000 mls @ 150 mls/hr IV ASDIRECTED [facility] Last Admin: 03/31/20 04:57 Dose: 150 mls/hr Documented by: Dextrose/Lactated Ringer's (Dextrose 5%-Lactated Ringers) 1,000 mls @ 100 mls/hr IV ASDIRECTED [facility] Dextrose/Lactated Ringer's (Dextrose 5%-Lactated Ringers) 1,000 mls @ 100 mls/hr IV ASDIRECTED [facility] Last Admin: 04/01/20 08:20 Dose: 100 mls/hr Documented by: Ketorolac Tromethamine (Toradol) 30 mg IV Q6H PRN PRN Reason: Pain (moderate 4-6) Pantoprazole Sodium (Protonix Iv) 40 mg IVPUSH DAILY [facility] Last Admin: 03/29/20 14:13 Dose: Not Given Documented by: Potassium Chloride (Klor-Con M20) 20 meq PO ONETIME ONE Stop: 04/02/20 08:44 Last Admin: 04/02/20 09:28 Dose: 20 meq Documented by: - Exam General: Alert, Oriented, Cooperative Lungs: Clear to Auscultation, Normal Respiratory Effort Cardiovascular: Regular Rate, Regular Rhythm GI/Abdominal Exam: Soft, Non-Tender, No Organomegaly, No Distention, No Abnormal Bruit Sepsis Event Note - Evaluation Sepsis Screening Result: No Definite Risk - Focused Exam Vital Signs: Vital Signs Temp Temp Pulse Pulse Resp BP BP 04/02/20 09:52 77 127/63 04/02/20 09:51 127/63 04/02/20 08:00 98.4 F 69 20 94/45 L 04/02/20 00:46 98.2 F 60 16 125/73 Pulse Ox 04/02/20 09:52 04/02/20 09:51 04/02/20 08:00 96 04/02/20 00:46 97 - Problem List Review Problem List Initiated/Reviewed/Updated: No - Assessment Assessment:: Patient has SOB. This has now resolved. - Plan Plan:: - Patient is tolerating diet. no obstructive symptoms. His SBO has resolved. Ok to discharge to home. Follow up with PCP as per routine. I discussed with the patient that the SBO could recur at any time, it if recurs, he needs to seek medical attention. Patient verbalized understanding.
[2020-04-02] MEDS ORDERED: FLU Vacc QV2020-21(65YR UP)/PF 240 MCG/0.7 ML Syringe IM ONE (10:30)
--- NOTE | 2020-04-02 10:50 | PCM.DCSUM1 ---
Discharge Summary - Hospital Course HPI Initial Comments: This is a 74-year-old male with past medical history of hypertension atrial fibrillation on Eliquis who was sent for direct admit from clinic for small bowel obstruction. As per patient he started feeling sick Saturday in the morning with intractable nausea, generalized abdominal bleeding tightness. He was passing a little gas but that stopped and has not had a bowel movement since Saturday. Does endorse having a small diarrhea bowel movement this morning Has been unable to take anything p.o. without vomiting Last medication doses were taken Saturday in the morning Once he noticed pain was located better he decided to go to [facility] to be evaluated where he was diagnosed with small bowel obstruction. Case was presented to me and decision was made to directly admit patient into the medical floor. ASSESSMENT 3 days of intractable nausea and vomiting as well as abdominal pain Seen in outpatient setting where CT abdomen and labs were drawn CBC: WBC 11.2, hemoglobin 15.1, hematocrit 46.5, platelets 257 Chemistry: Glucose 117, sodium 142, potassium 4.5, chloride 99, CO2 26, BUN 42, creatinine 1.85, GFR 36, calcium 10.1 LFTs: Alk phos 107, AST and ALT 11 Total protein 8.7, albumin 4.7 CT abdomen with small bowel obstruction with transition point in the ileum in the right lower quadrant PLAN Small bowel obstruction Intractable nausea and vomiting Leukocytosis History of correction of meckels diverticulum Strict n.p.o. Start LR at 100 mL's per minute NG tube placement Intermittent suction Toradol for pain control Surgery consult Acute kidney injury secondary to volume depletion Monitor urine output Renally dose medication and avoid nephrotoxic agents Repeat labs in the morning IV fluid repletion with LR Atrial fibrillation with controlled ventricular rate on Eliquis Home management with metoprolol and Eliquis Monitor vital signs PRN diltiazem Hypertension Home management with losartan and hydrochlorothiazide PRN hydralazine Dyslipidemia Hold home Pitavastatin Hypothyroidism Hold home levothyroxine RUTHY on CPAP Ask family members to bring home CPAP Chronic constipation Home management with Dulcolax and senna as needed PROPHYLAXIS DVTcompression stockings GIIV Protonix CODE STATUS: FULL CODE DISPOSITION: Patient will be admitted to medical floor on strict n.p.o. with NG tube placement at intermittent suction as well as symptomatic treatment. SOCIAL: Lives in a farm here in [place] with his Completely independent on ADLs and IADLs Drinks about 2 drinks a week, last drink was 2 weeks ago Never smoker Never drug user PCP is Dr. Geronimo Diagnosis: Stroke: No - Discharge Data Discharge Date: 04/02/20 Discharge Disposition: Home, Self-Care 01 Condition: Good - Referral to Home Health Primary Care Physician: Jarrod Retana MD - Patient Summary/Data Consults: Consultations 03/29/20 07:27 Consult to Physician [CONS] Routine 03/29/20 07:31 Consult to Occupational Therapy [OT Evaluation and Treatment] [CONS] Routine PT Evaluation and Treatment [CONS] Routine Hospital Course: 03/29/2020 No leukocytosis Hgb down to 13.4 Creatinine worsened to 2.4 with GFR of 27 Anion gap 15.6 VSS Will increase IV fluids Atelectasis vs infiltrate on CXR - no infectious symptoms currently - monitor and add IS Cepacol lozenge and hurricane spray PRN for throat irritation Bedside glucose checks Q8Hr - adjust fluids if begin to drip Dr. Benoit, General surgeon recommends conservative management for next 48-72 hours, then re-evaluate surgical options 950mL out of NG tube so far Continues to ambulate with nursing Utilizing heparin in place of eliquis due to possibility of surgery (hx/o a-fib Is having flatus Last BM on Saturday03/25/20 PLAN Strict n.p.o. IV fluids as ordered Continue NG tube Intermittent suction Surgery consult - Dr. Benoit -Monitor NG output Monitor urine output Renally dose medication and avoid nephrotoxic agents Repeat labs in the morning IV fluid repletion with LR Hold home metoprolol and Eliquis due to possibility of surgery Monitor vital signs PRN metoprolol -Heparin Q8 scheduled -Telemetry Hold home losartan and hydrochlorothiazide PRN hydralazine Hold home Pitavastatin Hold home levothyroxine Continue home CPAP once NG tube is discontinued Home management with Dulcolax and senna as needed 03/30/2020 Labs remain stable NG tube output 1300mL Nearly fluid neutral Decrease IV fluids from 175 to 150mL as output is decreasing Creatinine improved to 1.6 with GFR improving to 43 Anion gap improved to 13.7 CRP 10.2 Continues to ambulate regularly Continues to report flatus Last BM 03/25/[address] Benoit - will give contrast through NG tube, clamp for 3-4 hours, and then obtain abdominal x-ray in 8 hrs Should patient become symptomatic, resume suction. Strict n.p.o. IV fluids as ordered - decrease to 150ml/hr Continue NG tube Intermittent suction Surgery consult - Dr. Benoit -Monitor NG output -Per Dr. Benoit - give oral contrast through NG tube, Wait 3-4hrs to resume suction and obtain abdominal xray in 8 hours -If patient becomes symptomatic - resume suction PLAN Monitor urine output Renally dose medication and avoid nephrotoxic agents Repeat labs in the morning IV fluid repletion with LR Hold home metoprolol and Eliquis due to possibility of surgery Monitor vital signs PRN metoprolol -Heparin Q8 scheduled -Telemetry Hold home losartan and hydrochlorothiazide PRN hydralazine Hold home Pitavastatin Hold home levothyroxine Continue home CPAP once NG tube is discontinued Home management with Dulcolax and senna as needed 03/31/2020 Continues to improve Belly is now soft Reports several liquid stools throughout the night Continues to have fairly significant NG tube output - 1270ml, brown/black in color Discussed with Dr. Benoit, will continue NG tube at least 1 more day Abdominal X-ray with contrast showed contrast throughout entire colon and in re ctum IV fluids changed to D5LR and rate decreased to 100mL/HR WBC 12.37 - likely elevated due to stress reaction but will monitor Neutrophils elevated at 73.9% Afebrile Creatinine down to 1.3 with a GFR of 54 Blood glucose readings due to NPO status of 120-125 CRP 11.4 Albumin 3.0 Remains NPO status until at least tomorrow pending progress Resume home medications once off NPO status Remains in NSR with no calls on telemetry VSS Last BM today. Likely discharge in 1-2 days 04/01/2020 Continues to improve Continues to ambulate frequently Abdomen soft with active bowel sounds Continues to have liquid stools 1900mL NG output last night however patient was eating ice chips Discussed with Dr. Benoit - will cap NG tube for 4 hours and pull if no symptoms, then start clear liquids Will discontinue IV fluids once patient tolerates clear liquids Resume home medications tonight/tomorrow as ordered Afebrile Discontinue blood glucose checks once tolerating feeds Continuing to utilize IS WBC 11.24- down from yesterday Sodium 147 Creatinine 1.2 with GFR of 60 CRP 10.3 Remains in NSR with no calls on telemetry Last BM today Likely discharge 1-2 days pending continued improvement and successful advancement of diet 04/02/2020 Patient is asymptomatic. He is tolerating a full diet. He has been seen by Dr. Benoit and he is ready for discharge. - Patient Instructions Diet: Usual Diet as Tolerated Activity: As Tolerated Driving: May Drive Today Showering/Bathing: May Shower Notify Provider of: Increased Pain, Nausea and/or Vomiting Other/Special Instructions: Follow up with your PCP in 1 week. - Discharge Plan *PRESCRIPTION DRUG MONITORING PROGRAM REVIEWED*: No *COPY OF PRESCRIPTION DRUG MONITORING REPORT IN PATIENT FAISAL: No Home Medications: Home Meds Allopurinol [Zyloprim] 300 mg PO DAILY 06/24/17 [History] Ascorbate Calcium [Vitamin C] 500 mg PO DAILY 06/24/17 [History] Cholecalciferol (Vitamin D3) [Vitamin D] 5,000 unit PO DAILY 06/24/17 [History] Levothyroxine 175 mcg PO ACBRK 06/24/17 [History] Losartan Potassium 50 mg PO DAILY 06/24/17 [History] hydroCHLOROthiazide [Hydrochlorothiazide] 12.5 mg PO DAILY 06/24/17 [History] Ferrous Sulfate [Slow Fe] 140 mg PO DAILY 09/19/17 [History] Metoprolol Succinate [Toprol XL] 100 mg PO BID 10/07/17 [History] Apixaban [Eliquis] 5 mg PO BID 09/15/18 [History] Latanoprost 1 drop EYERT BEDTIME 05/27/19 [History] Levothyroxine 75 mcg PO ACBRK tablet 04/02/20 [Rx] Patient Handouts: Bowel Obstruction - Discharge Summary/Plan Comment DC Time >30 min.: Yes Discharge Summary/Plan Comment: Discharged home in good condition. Follow-up with your primary care provider. - General Info Date of Service: 04/02/20 Admission Dx/Problem (Free Text: Admission Diagnosis/Problem Admission Diagnosis/Problem Small bowel obstruction Functional Status: Reports: Pain Controlled - Review of Systems General: Reports: No Symptoms HEENT: Reports: No Symptoms Pulmonary: Reports: No Symptoms Cardiovascular: Reports: No Symptoms Gastrointestinal: Reports: No Symptoms, Flatus. Denies: Abdominal Pain Genitourinary: Reports: No Symptoms Musculoskeletal: Reports: No Symptoms - Patient Data Vitals - Most Recent: Last Vital Signs Temp 98.4 F 04/02/20 08:00 Pulse 77 04/02/20 09:52 Resp 20 04/02/20 08:00 BP 127/63 04/02/20 09:52 Pulse Ox 96 04/02/20 08:00 Weight - Most Recent: 101.015 kg I&O - Last 24 hours: Intake & Output 04/01/20 04/02/20 04/02/20 22:59 06:59 14:59 Intake Total 1840 800 Output Total 2 400 Balance 1838 400 Lab Results - Last 24 hrs: Laboratory Results - last 24 hr 04/01/20 04/02/20 04/02/20 Range/Units 14:19 05:35 05:35 WBC 9.42 H (4.23-9.07) K/mm3 RBC 4.14 L (4.63-6.08) M/mm3 Hgb 12.4 L (13.7-17.5) gm/dl Hct 39.8 L (40.1-51.0) % MCV 96.1 H (79.0-92.2) fl MCH 30.0 (25.7-32.2) pg MCHC 31.2 L (32.2-35.5) g/dl RDW Std Deviation 51.7 H (35.1-43.9) fL Plt Count 198 (163-337) K/mm3 MPV 9.3 L (9.4-12.3) fl Neut % (Auto) 59.2 (34.0-67.9) % Lymph % (Auto) 25.8 (21.8-53.1) % [place] % (Auto) 8.3 (5.3-12.2) % Eos % (Auto) 5.1 (0.8-7.0) Baso % (Auto) 0.6 (0.1-1.2) % Neut # (Auto) 5.58 H (1.78-5.38) K/mm3 Lymph # (Auto) 2.43 (1.32-3.57) K/mm3 [place] # (Auto) 0.78 (0.30-0.82) K/mm3 Eos # (Auto) 0.48 (0.04-0.54) K/mm3 Baso # (Auto) 0.06 (0.01-0.08) K/mm3 Sodium 142 (136-145) mEq/L Potassium 3.3 L (3.5-5.1) mEq/L Chloride 102 (98-107) mEq/L Carbon Dioxide 31 (21-32) mEq/L Anion Gap 12.3 (5-15) BUN 14 (7-18) mg/dL Creatinine 1.3 (0.7-1.3) mg/dL Est Cr Clr Drug Dosing 51.36 mL/min Estimated GFR (MDRD) 54 (>60) mL/min BUN/Creatinine Ratio 10.8 L (14-18) Glucose 112 (83-115) mg/dL POC Glucose 129 H (83-110) mg/dL Calcium 8.4 L (8.5-10.1) mg/dL Magnesium 1.7 L (1.8-2.4) mg/dl Total Bilirubin 0.6 (0.2-1.0) mg/dL AST 32 (15-37) U/L ALT 39 (16-63) U/L Alkaline Phosphatase 103 (46-116) U/L Total Protein 6.8 (6.4-8.2) g/dl Albumin 3.0 L (3.4-5.0) g/dl Globulin 3.8 gm/dL Albumin/Globulin Ratio 0.8 L (1-2) Med Orders - Current: Current Medications Apixaban (Eliquis) 5 mg PO BID [facility] Last Admin: 04/02/20 09:29 Dose: 5 mg Documented by: Benzocaine (Hurricaine 20% [place]) 0 ml MUCMEM Q4HR PRN PRN Reason: Sore Throat Last Admin: 03/31/20 21:15 Dose: 1 spray Documented by: Benzocaine/Menthol (Cepacol Sore Throat) 1 lozenge MUCMEM Q4H PRN PRN Reason: Sore Throat Last Admin: 03/30/20 08:39 Dose: 1 lozenge Documented by: Hydrochlorothiazide (Hydrochlorothiazide) 12.5 mg PO DAILY [facility] Last Admin: 04/02/20 09:52 Dose: 12.5 mg Documented by: Latanoprost (Xalatan 0.005% Ophth Soln) 0 ml EYERT BEDTIME [facility] Last Admin: 04/01/20 20:04 Dose: 1 drop Documented by: Levothyroxine Sodium (Synthroid) 100 mcg PO [facility] Last Admin: 04/02/20 06:10 Dose: 100 mcg Documented by: Levothyroxine Sodium (Levothyroxine) 75 mcg PO [facility] Last Admin: 04/02/20 06:10 Dose: 75 mcg Documented by: Losartan Potassium (Cozaar) 50 mg PO DAILY [facility] Last Admin: 04/02/20 09:51 Dose: 50 mg Documented by: Metoprolol Succinate (Toprol Xl) 100 mg PO BID [facility] Last Admin: 04/02/20 09:52 Dose: 100 mg Documented by: Metoprolol Tartrate (Lopressor) 5 mg IVPUSH Q4H PRN PRN Reason: Tachycardia Ondansetron HCl (Zofran) 4 mg IV Q6H PRN PRN Reason: Nausea/Vomiting Discontinued Medications Heparin Sodium (Porcine) (Heparin Sodium) 5,000 units SUBCUT Q8H [facility] Stop: 04/01/20 19:00 Last Admin: 04/01/20 17:08 Dose: 5,000 units Documented by: Lactated Ringer's (Ringers, Lactated) 1,000 mls @ 125 [facility]ls[facility] Last Admin: 03/29/20 07:48 Dose: 125 mls/hr Documented by: Lactated Ringer's (Ringers, Lactated) 1,000 mls @ 175 [facility]ls[facility] Last Admin: 03/30/20 08:39 Dose: 175 mls/hr Documented by: Lactated Ringer's (Ringers, Lactated) 1,000 mls @ 150 mls/hr IV ASDIRECTED [facility] Last Admin: 03/30/20 20:37 Dose: 150 mls/hr Documented by: Dextrose/Lactated Ringer's (Dextrose 5%-Lactated Ringers) 1,000 mls @ 150 mls/hr IV ASDIRECTED [facility] Last Admin: 03/31/20 04:57 Dose: 150 mls/hr Documented by: Dextrose/Lactated Ringer's (Dextrose 5%-Lactated Ringers) 1,000 mls @ 100 [facility]ls[facility] Dextrose/Lactated Ringer's (Dextrose 5%-Lactated Ringers) 1,000 mls @ 100 mls/hr IV ASDIRECTED [facility] Last Admin: 04/01/20 08:20 Dose: 100 mls/hr Documented by: Magnesium Sulfate 2 gm/ Premix 50 mls @ 25 mls/hr IV ONETIME ONE Stop: 04/02/20 10:42 Last Admin: 04/02/20 10:08 Dose: 25 mls/hr Documented by: Influenza Virus Vaccine (Fluzone High-Dose Quad ) 240 mcg IM .ONCE ONE Stop: 04/02/20 10:31 Ketorolac Tromethamine (Toradol) 30 mg IV Q6H PRN PRN Reason: Pain (moderate 4-6) Pantoprazole Sodium (Protonix Iv) 40 mg IVPUSH DAILY [facility] Last Admin: 03/29/20 14:13 Dose: Not Given Documented by: Potassium Chloride (Klor-Con M20) 20 meq PO ONETIME ONE Stop: 04/02/20 08:44 Last Admin: 04/02/20 09:28 Dose: 20 meq Documented by: - Exam Quality Assessment: Denies: Supplemental Oxygen General: Reports: Alert, Oriented HEENT: Reports: Pupils Equal, Mucous Membr. Moist/[place] Neck: Reports: Supple Lungs: Reports: Clear to Auscultation, Normal Respiratory Effort Cardiovascular: Reports: Regular Rate, Regular Rhythm GI/Abdominal Exam: Normal Bowel Sounds, Soft, Non-Tender, No Organomegaly, No Distention, No Abnormal Bruit, No Mass, Pelvis Stable Extremities: Normal Inspection, Normal Range of Motion, Non-Tender, No Pedal Edema, Normal Capillary Refill Neurological: Reports: No New Focal Deficit
== END 2020-04-02 12:11 | disposition home or self-care (01) | DRG 389 ==
LOC: OBSVTOIN 17:50 → UNDOADMOB 17:50 → INTOOBSV 17:50 → JD.MS 17:50 → OBSVTOIN 18:43 → JD.MS 18:43 → UNDODISIN 04-02 12:11
PROVIDERS: ADMIT Internal Medicine; ATTEND Internal Medicine
PROC: 0D9670Z Drainage of Stomach with Drainage Device, Via Natural or Artificial Opening (ICD-10-PCS; principal; 2020-03-28)
DX: K56.609 Unspecified intestinal obstruction, unspecified as to partial versus complete obstruction (principal); N17.9 Acute kidney failure, unspecified; D69.3 Immune thrombocytopenic purpura; Q43.0 Meckel's diverticulum (displaced) (hypertrophic); I48.91 Unspecified atrial fibrillation; I10 Essential (primary) hypertension; E78.5 Hyperlipidemia, unspecified; E03.9 Hypothyroidism, unspecified; G47.33 Obstructive sleep apnea (adult) (pediatric); K59.09 Other constipation; H54.7 Unspecified visual loss; E78.00 Pure hypercholesterolemia, unspecified; M10.9 Gout, unspecified; M19.90 Unspecified osteoarthritis, unspecified site; E66.9 Obesity, unspecified; Z96.641 Presence of right artificial hip joint; Z96.659 Presence of unspecified artificial knee joint; Z99.81 Dependence on supplemental oxygen; Z79.01 Long term (current) use of anticoagulants; Z87.442 Personal history of urinary calculi; Z98.890 Other specified postprocedural states; Z88.8 Allergy status to other drugs, medicaments and biological substances; Z79.899 Other long term (current) drug therapy; H61.20 Impacted cerumen, unspecified ear; Z20.828 Contact with and (suspected) exposure to other viral communicable diseases
CPT/HCPCS: 36415; 74018; 80048; 80053; 82962; 83735; 84100; 85025; 86140; 90662; 97110-GO; 97162-GP; 97165-GO; 97535-GO; 99222; 99232; 99239; A9270-GY; G0008; J1644; J3475; J7120; J7121; U0002

== ENCOUNTER 2022-04-18 10:27 | Inpatient (IN) | payer MEDICARE, OTHER ==
[2022-04-18] MEDS ORDERED: Sodium Chloride 0.9% 10 ML Syringe FLUSH PRN (11:04)
[2022-04-18] MEDS ORDERED: Sodium Chloride 0.9% 1,000 ML IV STA ×2 (11:50→14:16)
[2022-04-18] MEDS ORDERED: Ondansetron 4 MG/2 ML SDV IVPUSH ONE (11:50)
[2022-04-18 13:16] LABS: CORONAVIRUS COVID-19 NAA NEGATIVE (NEGATIVE)
[2022-04-18] MEDS ORDERED: HYDROmorphone 0.5 MG/0.5 ML Syringe IVPUSH PRN (14:32)
[2022-04-18] MEDS ORDERED: Ondansetron 4 MG/2 ML SDV IV PRN (14:32)
[2022-04-18] MEDS ORDERED: Metoprolol Tartrate 5 MG/5 ML SDV IVPUSH SCH (14:45)
[2022-04-18] MEDS ORDERED: Promethazine 12.5 MG in Sodium Chloride 0.9% 50 ML IV PRN (14:56)
[2022-04-18] MEDS ORDERED: Ondansetron 4 MG in Sodium Chloride 0.9% 50 ML IV PRN (15:06)
[2022-04-18] MEDS: Metoprolol Tartrate 5 MG/5 ML SDV IVPUSH SCH ×2 (15:19→21:07)
[2022-04-18] MEDS ORDERED: Benzocaine 20% Topical Spray UD MUCMEM PRN (16:00)
[2022-04-18] MEDS: D5 1/2 NS w/ 20 mEq/L KCl 1,000 ML IV SCH (18:19)
[2022-04-19] MEDS: Metoprolol Tartrate 5 MG/5 ML SDV IVPUSH SCH ×4 (04:10→20:39)
[2022-04-19] MEDS ORDERED: Ondansetron 4 MG/2 ML SDV IVPUSH PRN (09:16)
[2022-04-19] MEDS: Famotidine 20 MG/2 ML SDV IVPUSH SCH ×2 (09:32→20:43)
[2022-04-19] MEDS: D5 1/2 NS w/ 20 mEq/L KCl 1,000 ML IV SCH (13:49)
[2022-04-20] MEDS: D5 1/2 NS w/ 20 mEq/L KCl 1,000 ML IV SCH ×2 (00:19→10:24)
[2022-04-20] MEDS: Metoprolol Tartrate 5 MG/5 ML SDV IVPUSH SCH ×2 (03:58→09:14)
[2022-04-20] MEDS: Famotidine 20 MG/2 ML SDV IVPUSH SCH (09:13)
[2022-04-20 16:58] VITALS: BP 154/74; PULSE 89
[2022-04-20] MEDS ORDERED: Apixaban 5 MG Tab PO SCH (21:00)
[2022-04-20] MEDS ORDERED: Metoprolol Succinate 50 MG Tab.ER PO SCH (21:00)
[2022-04-20] MEDS ORDERED: Latanoprost 0.005% Ophth Soln 2.5 ML Bottle EYERT SCH (21:00)
[2022-04-21] MEDS ORDERED: Levothyroxine 50 MCG Tab PO SCH (06:00)
[2022-04-21] MEDS ORDERED: Levothyroxine 125 MCG Tab PO SCH (06:00)
[2022-04-21] MEDS ORDERED: Allopurinol 300 MG Tab PO SCH (09:00)
== END 2022-04-20 18:31 | disposition home or self-care (01) | DRG 389 ==
LOC: JD.ED 10:27 → JD.MS 14:31 → JD.ED 17:32
PROVIDERS: ADMIT Internal Medicine; ATTEND Internal Medicine
DX: K56.609 Unspecified intestinal obstruction, unspecified as to partial versus complete obstruction (principal); I48.91 Unspecified atrial fibrillation; E78.00 Pure hypercholesterolemia, unspecified; G47.30 Sleep apnea, unspecified; M19.90 Unspecified osteoarthritis, unspecified site; M06.9 Rheumatoid arthritis, unspecified; N17.9 Acute kidney failure, unspecified; E78.5 Hyperlipidemia, unspecified; G47.33 Obstructive sleep apnea (adult) (pediatric); I48.0 Paroxysmal atrial fibrillation; E86.9 Volume depletion, unspecified; E66.9 Obesity, unspecified; Z96.641 Presence of right artificial hip joint; Z96.653 Presence of artificial knee joint, bilateral; Z20.822 Contact with and (suspected) exposure to COVID-19; R11.14 Bilious vomiting; I10 Essential (primary) hypertension; E03.9 Hypothyroidism, unspecified; Z79.890 Hormone replacement therapy; Z68.34 Body mass index [BMI] 34.0-34.9, adult; Z87.442 Personal history of urinary calculi; Z79.01 Long term (current) use of anticoagulants; Z87.19 Personal history of other diseases of the digestive system; Z79.899 Other long term (current) drug therapy; Z88.8 Allergy status to other drugs, medicaments and biological substances; Z97.3 Presence of spectacles and contact lenses; Z98.890 Other specified postprocedural states
CPT/HCPCS: 0240U; 36415; 71045; 74176; 74250; 80048; 80053; 82947; 83605; 83735; 84100; 85025; 85027; 86140; 94761; 97161; A9270-GY; J2405; J3480; J3490; J7030

== ENCOUNTER 2023-07-05 09:11 | Inpatient (IN) | payer MEDICARE, OTHER ==
[2023-07-05] MEDS ORDERED: Sodium Chloride 0.9% 1,000 ML IV STA (09:47)
[2023-07-05] MEDS ORDERED: Sodium Chloride 0.9% 10 ML Syringe FLUSH PRN (09:47)
[2023-07-05] MEDS ORDERED: Ondansetron 4 MG/2 ML SDV IVPUSH ONE (09:48)
[2023-07-05] MEDS ORDERED: HYDROmorphone 0.5 MG/0.5 ML Syringe IVPUSH ONE (09:49)
[2023-07-05] MEDS ORDERED: Sodium Chloride 0.9% 10 ML Syringe FLUSH ONE (10:04)
[2023-07-05] MEDS ORDERED: Iopamidol 612 MG/ML 100 ML Bottle IVPUSH ONE (10:04)
[2023-07-05 10:30] LABS: BASOPHILS PERCENT AUTO 0.5 % (0.0-1.0); EOSINOPHILS PERCENT AUTO 0.5 % (0.0-6.0); HEMATOCRIT 42.3 % (42.0-52.0); HEMOGLOBIN 14.3 gm/dl (14.0-18.0); IMMATURE GRAN ABSOLUTE AUTO 0.03 K/mm3 (0.00-0.05); IMMATURE GRAN PERCENT AUTO 0.5 % (0.0-0.4); LYMPHOCYTES ABSOLUTE AUTO 1.2 K/mm3 (1.0-4.8); MEAN CORPUSCULAR HEMOGLOBIN 31.1 pg (28.0-32.0); MEAN CORPUSCULAR HGB CONC 33.8 g/dl (32.0-36.0); MEAN PLATELET VOLUME 9.2 fl (9.4-12.4); MONOCYTES ABSOLUTE AUTO 0.9 K/mm3 (0.0-0.8); NEUTROPHILS ABSOLUTE AUTO 3.8 K/mm3 (1.8-7.7); NEUTROPHILS PERCENT AUTO 63.5 % (41.0-71.0); PLATELET COUNT,PLT 183 K/mm3 (150-400); WHITE BLOOD CELL COUNT,WBC 6.01 K/mm3 (3.9-11.3)
[2023-07-05 10:53] LABS: A/G RATIO 0.7 (1-2); ALBUMIN 3.4 g/dl (3.4-5.0); ANION GAP 14.3 (5-15); BILIRUBIN TOTAL 0.5 mg/dL (0.2-1.0); BUN/CREATININE RATIO 23.9 (14-18); CALCIUM 9.1 mg/dL (8.5-10.1); CREATININE 2.3 mg/dL (0.7-1.3); EST CRCL DRUG DOSING (CG) 26.43 mL/min; POTASSIUM,K 4.3 mEq/L (3.5-5.1)
[2023-07-05 12:07] LABS: APPEARANCE,URINE SLT CLOUDY (Clear); BILIRUBIN,URINE 2+ (Negative); COLOR,URINE DARK YELLOW (Yellow); GLUCOSE,URINE NEGATIVE (Negative); KETONES,URINE TRACE (Negative); LEUKOCYTE ESTERASE,URINE NEGATIVE (Negative); NITRITE,URINE NEGATIVE (Negative); OCCULT BLOOD,URINE NEGATIVE (Negative); PROTEIN,URINE 1+ (Negative); UROBILINOGEN,URINE 0.2 (0.2-1.0)
[2023-07-05] MEDS ORDERED: Sodium Chloride 0.9% 1,000 ML IV ONE (12:08)
[2023-07-05] MEDS ORDERED: Benzocaine 20% Topical Spray UD MUCMEM ONE (12:29)
[2023-07-05 12:56] LABS: RBC,URINE 0-5 /hpf (0-5); WBC,URINE 0-5 /hpf (0-5)
[2023-07-05 12:57] LABS: BACTERIA,URINE MANY /hpf (FEW); HYALINE CASTS,URINE 20-30 /lpf (0-5)
[2023-07-05 12:58] LABS: CALCIUM OXALATE CRYSTALS,URINE MODERATE; MUCUS,URINE MANY /hpf (FEW)
[2023-07-05] MEDS ORDERED: HYDROmorphone 0.5 MG/0.5 ML Syringe IVPUSH PRN (13:03)
[2023-07-05] MEDS ORDERED: Ketorolac 15 MG/ML SDV IVPUSH PRN (13:03)
[2023-07-05] MEDS ORDERED: Ondansetron 8 MG in Sodium Chloride 0.9% 50 ML IV PRN (13:03)
[2023-07-05] MEDS ORDERED: hydrALAZINE 20 MG/ML SDV IVPUSH PRN (17:15)
[2023-07-05] MEDS: Metoprolol Tartrate 5 MG/5 ML SDV IVPUSH SCH (19:04)
[2023-07-05] MEDS: Heparin Sodium 5,000 Units/ML Vial SUBCUT SCH (19:05)
[2023-07-05] MEDS: Lactated Ringers 1,000 ML IV SCH (19:05)
[2023-07-05] MEDS: Latanoprost 0.005% Ophth Soln 2.5 ML Bottle EYERT SCH (21:40)
[2023-07-06] MEDS: Metoprolol Tartrate 5 MG/5 ML SDV IVPUSH SCH ×5 (00:04→23:53)
[2023-07-06] MEDS: Lactated Ringers 1,000 ML IV SCH ×3 (02:36→20:02)
[2023-07-06 05:53] LABS: BASOPHILS ABSOLUTE AUTO 0.1 K/mm3 (0.0-0.2); BASOPHILS PERCENT AUTO 0.7 % (0.0-1.0); EOSINOPHILS ABSOLUTE AUTO 0.1 K/mm3 (0.0-0.4); EOSINOPHILS PERCENT AUTO 1.5 % (0.0-6.0); HEMOGLOBIN 13.2 gm/dl (14.0-18.0); IMMATURE GRAN ABSOLUTE AUTO 0.04 K/mm3 (0.00-0.05); IMMATURE GRAN PERCENT AUTO 0.6 % (0.0-0.4); LYMPHOCYTES ABSOLUTE AUTO 1.9 K/mm3 (1.0-4.8); LYMPHOCYTES PERCENT AUTO 26.1 % (24.0-44.0); MEAN CORPUSCULAR HEMOGLOBIN 31.1 pg (28.0-32.0); MEAN CORPUSCULAR VOLUME 94.3 fl (83.0-99.0); MEAN PLATELET VOLUME 9.2 fl (9.4-12.4); MONOCYTES ABSOLUTE AUTO 0.9 K/mm3 (0.0-0.8); MONOCYTES PERCENT AUTO 11.9 % (0.0-8.0); NEUTROPHILS ABSOLUTE AUTO 4.2 K/mm3 (1.8-7.7); NEUTROPHILS PERCENT AUTO 59.2 % (41.0-71.0); PLATELET COUNT,PLT 175 K/mm3 (150-400); RED BLOOD CELL COUNT 4.24 M/mm3 (4.52-5.90); WHITE BLOOD CELL COUNT,WBC 7.13 K/mm3 (3.9-11.3)
[2023-07-06 06:10] LABS: A/G RATIO 0.7 (1-2); ALBUMIN 3.1 g/dl (3.4-5.0); ANION GAP 14.5 (5-15); BILIRUBIN TOTAL 0.4 mg/dL (0.2-1.0); BUN/CREATININE RATIO 26.7 (14-18); CALCIUM 8.7 mg/dL (8.5-10.1); CREATININE 1.5 mg/dL (0.7-1.3); EST CRCL DRUG DOSING (CG) 40.53 mL/min; POTASSIUM,K 3.5 mEq/L (3.5-5.1); PROTEIN TOTAL,TP 7.4 g/dl (6.4-8.2)
[2023-07-06] MEDS: Heparin Sodium 5,000 Units/ML Vial SUBCUT SCH ×2 (06:14→16:58)
[2023-07-06] MEDS: Famotidine 20 MG/2 ML SDV IV SCH (08:26)
[2023-07-06] MEDS ORDERED: Enoxaparin 40 MG/0.4 ML Syringe SUBCUT SCH (09:00)
[2023-07-06] MEDS: Latanoprost 0.005% Ophth Soln 2.5 ML Bottle EYERT SCH (20:02)
[2023-07-07] MEDS: Metoprolol Tartrate 5 MG/5 ML SDV IVPUSH SCH ×2 (05:25→11:04)
[2023-07-07] MEDS: Lactated Ringers 1,000 ML IV SCH ×2 (05:25→16:47)
[2023-07-07] MEDS: Heparin Sodium 5,000 Units/ML Vial SUBCUT SCH ×2 (05:25→16:47)
[2023-07-07 06:22] LABS: BUN/CREATININE RATIO 18.3 (14-18); CALCIUM 8.7 mg/dL (8.5-10.1); CREATININE 1.2 mg/dL (0.7-1.3); EST CRCL DRUG DOSING (CG) 50.67 mL/min
[2023-07-07] MEDS ORDERED: Diatrizoate Meglumine/Diatrizoate Sodium 37% 120 ML Bottle PO ONE (07:49)
[2023-07-07] MEDS: Famotidine 20 MG/2 ML SDV IV SCH (09:20)
[2023-07-07] MEDS ORDERED: Metoprolol Succinate 25 MG Tab.ER PO SCH (21:00)
[2023-07-07] MEDS: Latanoprost 0.005% Ophth Soln 2.5 ML Bottle EYERT SCH (21:21)
[2023-07-08] MEDS: Lactated Ringers 1,000 ML IV SCH (00:29)
[2023-07-08 05:20] VITALS: BP 157/74; PULSE 59
[2023-07-08 05:31] LABS: MEAN CORPUSCULAR HEMOGLOBIN 31.4 pg (28.0-32.0); MEAN CORPUSCULAR HGB CONC 33.3 g/dl (32.0-36.0); MEAN CORPUSCULAR VOLUME 94.2 fl (83.0-99.0); PLATELET COUNT,PLT 180 K/mm3 (150-400); RED BLOOD CELL COUNT 3.82 M/mm3 (4.52-5.90)
[2023-07-08] MEDS: Heparin Sodium 5,000 Units/ML Vial SUBCUT SCH (06:24)
== END 2023-07-08 08:50 | disposition home or self-care (01) | DRG 389 ==
LOC: JD.ED 09:11 → JD.MS 13:03
PROVIDERS: ADMIT Specialist; ATTEND Specialist
PROC: 0D9670Z Drainage of Stomach with Drainage Device, Via Natural or Artificial Opening (ICD-10-PCS; principal; 2023-07-05)
DX: K56.699 Other intestinal obstruction unspecified as to partial versus complete obstruction (principal); K56.600 Partial intestinal obstruction, unspecified as to cause; N17.9 Acute kidney failure, unspecified; I48.91 Unspecified atrial fibrillation; E78.00 Pure hypercholesterolemia, unspecified; Z68.35 Body mass index [BMI] 35.0-35.9, adult; Z88.6 Allergy status to analgesic agent; I10 Essential (primary) hypertension; G47.30 Sleep apnea, unspecified; M19.90 Unspecified osteoarthritis, unspecified site; M10.9 Gout, unspecified; E03.9 Hypothyroidism, unspecified; E66.9 Obesity, unspecified; R79.89 Other specified abnormal findings of blood chemistry; Z96.641 Presence of right artificial hip joint; Z96.652 Presence of left artificial knee joint; Z88.8 Allergy status to other drugs, medicaments and biological substances; Z79.01 Long term (current) use of anticoagulants; Z79.899 Other long term (current) drug therapy; Z87.442 Personal history of urinary calculi; Z68.34 Body mass index [BMI] 34.0-34.9, adult; Z98.890 Other specified postprocedural states
CPT/HCPCS: 36415; 71045; 74018; 74176; 80053; 81001; 83690; 85025; 96361; 96374; 96375; 99285; J1170; J2405; J3490; J7030; 74250; 74250-26; 80048; 85027; 94762; A9270-GY; J1644; J7120; Q9963

== ENCOUNTER 2024-08-15 07:23 | Inpatient (IN) | payer MEDICARE, OTHER ==
[2024-08-15] MEDS ORDERED: Sodium Chloride 0.9% 10 ML Syringe FLUSH PRN (07:51)
[2024-08-15] MEDS: HYDROmorphone 0.5 MG/0.5 ML Syringe IVPUSH ONE (08:23)
[2024-08-15] MEDS: Metoclopramide 10 MG/2 ML SDV IVPUSH ONE (08:25)
[2024-08-15] MEDS: Lactated Ringers 1,000 ML IV SCH ×3 (08:25→12:59)
[2024-08-15] MEDS: Sodium Chloride 0.9% 10 ML Syringe FLUSH ONE (08:35)
[2024-08-15] MEDS: Iopamidol 612 MG/ML 100 ML Bottle IVPUSH ONE (08:35)
[2024-08-15 09:05] LABS: BASOPHILS PERCENT AUTO 0.5 % (0.0-1.0); EOSINOPHILS PERCENT AUTO 0.6 % (0.0-6.0); HEMOGLOBIN 14.2 gm/dl (14.0-18.0); IMMATURE GRAN ABSOLUTE AUTO 0.02 K/mm3 (0.00-0.05); IMMATURE GRAN PERCENT AUTO 0.3 % (0.0-0.4); LYMPHOCYTES ABSOLUTE AUTO 1.2 K/mm3 (1.0-4.8); LYMPHOCYTES PERCENT AUTO 18.4 % (24.0-44.0); MEAN CORPUSCULAR HEMOGLOBIN 30.9 pg (28.0-32.0); MEAN CORPUSCULAR VOLUME 93.7 fl (83.0-99.0); MEAN PLATELET VOLUME 9.5 fl (9.4-12.4); MONOCYTES ABSOLUTE AUTO 1.1 K/mm3 (0.0-0.8); MONOCYTES PERCENT AUTO 16.7 % (0.0-8.0); NEUTROPHILS ABSOLUTE AUTO 4.1 K/mm3 (1.8-7.7); NEUTROPHILS PERCENT AUTO 63.5 % (41.0-71.0); PLATELET COUNT,PLT 158 K/mm3 (150-400); RED BLOOD CELL COUNT 4.59 M/mm3 (4.52-5.90); WHITE BLOOD CELL COUNT,WBC 6.42 K/mm3 (3.9-11.3)
[2024-08-15 09:26] LABS: A/G RATIO 0.9 (1-2); ALBUMIN 3.6 g/dl (3.4-5.0); ANION GAP 13.9 (5-15); BILIRUBIN TOTAL 0.6 mg/dL (0.2-1.0); BUN/CREATININE RATIO 15.6 (14-18); CREATININE 2.5 mg/dL (0.7-1.3); EST CRCL DRUG DOSING (CG) 23.94 mL/min; POTASSIUM,K 3.9 mEq/L (3.5-5.1); PROTEIN TOTAL,TP 7.7 g/dl (6.4-8.2)
[2024-08-15] MEDS: Benzocaine 20% Topical Spray UD MUCMEM ONE (09:58)
[2024-08-15] MEDS ORDERED: Ondansetron 4 MG Tab.DIS PO PRN (11:40)
[2024-08-15] MEDS ORDERED: HYDROmorphone 0.5 MG/0.5 ML Syringe IVPUSH PRN (11:40)
[2024-08-15 16:23] LABS: APPEARANCE,URINE CLEAR (Clear); BILIRUBIN,URINE NEGATIVE (Negative); COLOR,URINE YELLOW (Yellow); GLUCOSE,URINE NEGATIVE (Negative); KETONES,URINE NEGATIVE (Negative); LEUKOCYTE ESTERASE,URINE NEGATIVE (Negative); NITRITE,URINE NEGATIVE (Negative); OCCULT BLOOD,URINE NEGATIVE (Negative); PH,URINE 5.5 (5.0-8.0); PROTEIN,URINE 1+ (Negative); UROBILINOGEN,URINE 0.2 (0.2-1.0)
[2024-08-15 16:34] LABS: BACTERIA,URINE FEW /hpf (FEW); EPITHELIAL CELLS,URINE 0-5 /hpf (0-5); MUCUS,URINE FEW /hpf (FEW); RBC,URINE 0-5 /hpf (0-5); WBC,URINE 0-5 /hpf (0-5)
[2024-08-15] MEDS: Metoprolol Succinate 50 MG Tab.ER PO SCH (21:32)
[2024-08-16 05:29] LABS: HEMATOCRIT 41.2 % (42.0-52.0); HEMOGLOBIN 13.7 gm/dl (14.0-18.0); MEAN CORPUSCULAR HGB CONC 33.3 g/dl (32.0-36.0); MEAN CORPUSCULAR VOLUME 93.2 fl (83.0-99.0); MEAN PLATELET VOLUME 9.2 fl (9.4-12.4); PLATELET COUNT,PLT 168 K/mm3 (150-400); RED BLOOD CELL COUNT 4.42 M/mm3 (4.52-5.90); WHITE BLOOD CELL COUNT,WBC 7.25 K/mm3 (3.9-11.3)
[2024-08-16 05:44] LABS: ANION GAP 10.7 (5-15); BUN/CREATININE RATIO 21.7 (14-18); CALCIUM 8.6 mg/dL (8.5-10.1); CREATININE 1.8 mg/dL (0.7-1.3); EST CRCL DRUG DOSING (CG) 33.25 mL/min; POTASSIUM,K 3.7 mEq/L (3.5-5.1)
[2024-08-16] MEDS: Levothyroxine 75 MCG Tab PO SCH (07:16)
[2024-08-16] MEDS: Levothyroxine 100 MCG Tab PO SCH (07:16)
[2024-08-16 08:39] VITALS: BP 150/65; PULSE 82
== END 2024-08-16 12:00 | disposition home or self-care (01) | DRG 389 ==
LOC: JD.ED 07:23 → JD.MS 11:40
PROVIDERS: ADMIT Surgery; ATTEND Surgery
DX: K56.609 Unspecified intestinal obstruction, unspecified as to partial versus complete obstruction (principal); D69.3 Immune thrombocytopenic purpura; N17.9 Acute kidney failure, unspecified; I48.0 Paroxysmal atrial fibrillation; Q43.0 Meckel's diverticulum (displaced) (hypertrophic); H40.9 Unspecified glaucoma; H54.7 Unspecified visual loss; I10 Essential (primary) hypertension; G47.30 Sleep apnea, unspecified; N20.0 Calculus of kidney; E78.00 Pure hypercholesterolemia, unspecified; M19.90 Unspecified osteoarthritis, unspecified site; E03.9 Hypothyroidism, unspecified; E66.01 Morbid (severe) obesity due to excess calories; E86.0 Dehydration; K76.0 Fatty (change of) liver, not elsewhere classified; E66.9 Obesity, unspecified; Z86.16 Personal history of COVID-19; Z79.899 Other long term (current) drug therapy; Z68.35 Body mass index [BMI] 35.0-35.9, adult; Z96.649 Presence of unspecified artificial hip joint; Z98.890 Other specified postprocedural states; Z96.659 Presence of unspecified artificial knee joint; Z79.01 Long term (current) use of anticoagulants; Z88.8 Allergy status to other drugs, medicaments and biological substances; Z68.36 Body mass index [BMI] 36.0-36.9, adult; R11.2 Nausea with vomiting, unspecified
CPT/HCPCS: 36415; 43752; 71045; 74018; 74177; 80053; 83690; 85025; 96361; 96374; 96375; 99285; A9270; J2765; J7120 ×2; Q9967; 80048; 81001; 85027